=== PATIENT | female | born 1940 | race Caucasian/White ===

== ENCOUNTER 2020-07-15 10:18 | Day surgery (SDC) | payer MEDICARE, OTHER ==
[2020-07-15] MEDS: Lactated Ringers 1,000 ML IV SCH (10:39)
[2020-07-15] MEDS ORDERED: fentaNYL 100 MCG/2 ML SDV ONE (11:30)
[2020-07-15] MEDS ORDERED: Propofol 200 MG/20 ML SDV ONE (11:30)
[2020-07-15 12:57] VITALS: BP 106/43; PULSE 72
--- NOTE | 2020-07-15 14:13 | OR ---
SURGERY DATE: 07/15/2020. REFERRING PROVIDER: Xuan Rendon DO PRE-OPERATIVE DIAGNOSES: 1. Iron deficiency anemia. 2. The patient does report episode of dysphagia with bigger pills. This is in the throat area. 3. History of mechanical heart valve. On chronic Coumadin, currently bridged with Lovenox. Last dose was yesterday morning. INR today 1.0. POST-OPERATIVE DIAGNOSES: 1. Mild chronic appearing duodenitis in the duodenal bulb. Cold biopsy x2 bites taken. 2. Some scattered erythematous polypoid tissue to the posterior tongue noticed on the way out. This had a red cobblestone-like appearance at the posterior tongue. Consider ENT referral for laryngoscopy to evaluate further. PROCEDURE: Esophagogastroduodenoscopy with cold biopsy x2 sites (duodenal bulb and gastric antrum). SURGEON: Jaun Cervantes M.D. ANESTHESIA: Monitored anesthesia care. Angelika is a 79-year-old female who was brought to the endoscope suite after discussion of risks and benefits (including but not limited to reaction to medication, bleeding, infection, aspiration, perforation). Informed consent was obtained for monitored anesthesia care and esophagogastroduodenoscopy along with possible biopsy and/or dilatation. Pre-procedure exam including oral cavity was unremarkable. IV, oxygen, and monitors were placed. Patient was placed in the left lateral position and sedation was administered. A bite block was placed gently and scope lightly lubricated and passed through the bite block and over the tongue. Hypopharynx and vocal cords were visualized and unremarkable. On the way out, it was noted that the patient had some scattered erythematous cobblestone-like polypoid tissue to the posterior tongue which looked somewhat atypical. ENT referral to check this out is recommended. Scope was passed through the cricopharynx and into the esophagus. The scope was then passed through the distal esophagus and the GE junction was visualized and photographed. The GE junction was unremarkable. Vocal cords were visualized and unremarkable. The scope was advanced into the stomach and gastric bradley was suctioned. Pylorus was identified and intubated and then the scope was advanced to the third portion of the duodenum. The second and third portions of the duodenum were unremarkable. The duodenal bulb was visualized and did reveal some mild chronic appearing duodenitis. Cold biopsy x2 bites taken. The scope was brought back into the stomach. The pylorus and the antrum were unremarkable. Biopsies for H pylori and path were obtained from the antrum. Cold biopsy x2 bites was taken from this area to check for H. pylori and sent for path. The scope was retroflexed to visualize the angularis, fundus, body, and cardia were unremarkable. Esophagus closely visualized during withdrawal all the way to the posterior pharynx and was unremarkable. The stomach was desufflated of air and then the scope was slowly withdrawn, and the esophagus was closely visualized during withdrawal all the way into the posterior pharynx. The patient tolerated the procedure well and went to recovery in stable condition. The patient was monitored until at baseline status. Findings and discharge instructions were reviewed and the patient was discharged in good condition. COMPLICATIONS: None. TOTAL TIME: 8 minutes. ESTIMATED BLOOD LOSS: About 1 mL. RECOMMENDATIONS/FOLLOW-UP: We will await results of path report and send letter with results. The patient denies any current upper GI symptoms. If she does have some mild duodenitis on pathology, may consider addition of H2 valentino for GI prophylaxis given her chronic anticoagulation. Also recommend ENT consultation for the scattered erythematous cobblestone-like polypoid tissue to the posterior tongue which appears somewhat atypical. The patient will resume her Coumadin tonight and Lovenox bridge starting tomorrow morning. I would like to kindly thank Xuan Rendon for this referral. DMB: 07/15/2020 13:04:13 MODL: 07/15/2020 13:41:47 /[id number]
--- NOTE | 2020-07-15 14:35 | OR ---
DATE OF SURGERY: 07/15/2020. REFERRING PROVIDER: Xuan Rendon DO PRE-OPERATIVE DIAGNOSES: 1. Rectal bleeding. The patient does have history of hemorrhoids. 2. Iron deficiency anemia. The patient is on chronic Coumadin for mechanical heart valve. She was bridged with Lovenox and last dose was yesterday morning. INR today was 1.0. POST-OPERATIVE DIAGNOSES: 1. Incomplete colonoscopy. I was only able to advance to the distal transverse colon due to redundant loop to left colon. 2. Two polyps removed. a. 3 mm polyp in the transverse colon, removed using cold forceps. b. 6 mm polyp at the anorectal junction, removed using hot snare. 3. Moderate hemorrhoids, mildly irritated and inflamed. The patient will use some [id number] Preparation-H following the procedure to facilitate healing. 4. Edae-aw-txrtgtai sigmoid diverticulosis. PROCEDURE: Incomplete colonoscopy to the transverse colon. Polypectomy x2 performed; 1 using cold forceps and 1 using hot snare. SURGEON: Jaun Cervantes M.D. ANESTHESIA: Monitored anesthesia care. BOWEL PREP: Good. Angelika is a 79-year-old female who was brought to the endoscopy suite after discussing risks and benefits of the procedure. Informed consent was obtained for conscious sedation and colonoscopy with or without biopsy and/or polypectomy. We also discussed possibility of missed lesions. Pre-procedure exam was unremarkable. IV, oxygen, and monitors were placed. The patient was placed in the left lateral decubitus position. Sedation was administered and a digital rectal exam performed and was remarkable for irritated external hemorrhoids as well as palpable internal hemorrhoids. Colonoscope was passed into the rectum and slowly advanced. The patient had a tortuous, redundant, looped left colon. We did try abdominal pressure as well as scope stiffening and moving her onto her back as well as on her right side and then back again. These were unsuccessful. The colonoscope was slowly withdrawn and the mucosa was closely observed in a direct circumferential manner. The visualized portion of the transverse colon was remarkable for 3 mm polyp to the mid/distal portion of the transverse colon. This was removed using several bites of cold forceps. The descending colon was unremarkable. The sigmoid colon revealed mild-to- moderate diverticulosis. Retroflexion was performed and rectal mucosa revealed moderate hemorrhoids, which are somewhat irritated. There was also a 6 mm polyp at the anorectal junction. This was removed using hot snare. Some mild oozing of blood noted. Did recommend gxss-oih-[id number] Preparation-H to facilitate healing of this area. This should also calm down her hemorrhoids. Scope was removed. The patient tolerated the procedure well. The patient was monitored until that baseline status. Discharge instructions were reviewed and the patient was discharged in good condition. COMPLICATIONS: None. TOTAL TIME: 39 minutes. ESTIMATED BLOOD LOSS: 1 to 2 mL. RECOMMENDATIONS/FOLLOW-UP: I was unable to complete the colonoscopy given her tortuous, redundant, and looped left colon despite multiple maneuvers. We will send letter with results from the 2 polyps that were removed. I did recommend [id number]-[id number] Preparation-H to facilitate healing of the hemorrhoids as well as the polyp taken from the anorectal junction area. If primary sees fit, can consider either barium enema to visualize remainder of transverse colon as well as right colon, or the patient can consider a trial of colonoscopy again in [place] with Gastroenterology. The patient will resume her warfarin tonight and Lovenox tomorrow morning. I would like to kindly thank Xuan Rendon for this referral. DMB: 07/15/2020 13:11:28 MODL: 07/15/2020 14:09:20 /[id number]
== END 2020-07-15 14:05 | disposition home or self-care (01) ==
LOC: VM.SDS 10:18
PROVIDERS: ATTEND Family Medicine
DX: Z79.01 Long term (current) use of anticoagulants (principal)
CPT/HCPCS: 00811; 36415; 85610; 88305; J2704; J3010; J7120; U0002

== ENCOUNTER 2020-07-22 15:24 | Emergency (ER) | payer MEDICARE, OTHER ==
[2020-07-22] MEDS ORDERED: Sodium Chloride 0.9% 10 ML Syringe FLUSH PRN (15:34)
--- NOTE | 2020-07-22 15:57 | EDM.PDOC ---
ED HPI GENERAL MEDICAL PROBLEM - General Time Seen by Provider: 07/22/20 15:30 Source of Information: Reports: Patient History Limitations: Reports: No Limitations - History of Present Illness INITIAL COMMENTS - FREE TEXT/NARRATIVE: Pt. presents to ER with complaints of intermittent chest discomfort. She states that she has been fatigued for the past several days, and states that she has been experiencing intermittent, respirophasic chest discomfort since today or yesterday. She was in the clinic to be evaluated for rectal bleeding this afternoon and states that the discomfort was quite severe so she was brought to ER. Pt. had an incomplete (due to tortuosity and redundancy of bowel) on 07/15. She had 2 polyps removed at that time. She was noted to have moderate, inflammed hemorrhoids at that time. She also had EGD that day as well, with cold biopsy x 2 of duodenum. Pt. states that she has bright red rectal bleeding, and has been experiencing significant discomfort of the rectum as well. She is anticoagulated with warfarin, but the warfarin was stopped prior to her procedures preoperatively (she was bridged with lovenox). Denies any dark or tarry stools. She states that she is quite short of breath, particularly with activity. She has been extremely fatigued. HGB on 07/02 was 8.6. Pt. denies any arm pain. No jaw, arm, neck or back pain. +LYONS, mild orthopnea. No palpitations. She denies any nausea, vomiting, or abdominal discomfort. She has not been diaphoretic. History of cardiac arrest in the distant past. Pt. had negative heart cath for NSTEMI in 12/2019. She states that she has not stents. History mitral valve replacement. 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 EF in the 45-52% range on recent heart cath/nuclear stress tests. Onset Date: 07/21/20 Location: Reports: Chest, Generalized Quality: Reports: Sharp Worsens with: Reports: Other (activity), Movement Associated Symptoms: Reports: Chest Pain, Shortness of Breath. Denies: Fever/Chills Mid-Sternal Chest Pain Score (Numeric/FACES): 6 - Related Data Allergies Allergy/AdvReac Type Severity Reaction Status Date / Time cat dander Allergy Shortness Verified 07/22/20 15:51 of Breath pollen extracts AdvReac Cough Verified 07/22/20 15:51 Home Meds: Home Meds Cholecalciferol (Vitamin D3) [Vitamin D3] 4,000 unit PO DAILY 04/30/14 [History] Rosuvastatin [Crestor] 10 mg PO QPM 04/30/14 [History] Furosemide [Lasix] 20 mg PO DAILY 05/10/14 [History] Magnesium Chloride [Mag-64] 64 mg PO DAILY #30 tab.er 05/10/14 [Rx] Acetaminophen 650 mg PO Q4H PRN 11/03/15 [History] Metoprolol Tartrate 100 mg PO BID 11/03/15 [History] Digoxin [Lanoxin] 125 mcg PO DAILY #30 tablet 11/08/15 [Rx] Biotin 5 mg PO DAILY 10/30/18 [History] Calcium Carbonate/Vitamin D3 [Calcium 500 mg Chewable Tablet] 1 each PO TID 10/30/18 [History] Cetirizine [ZyrTEC] 10 mg PO DAILY 10/30/18 [History] Cyanocobalamin (Vitamin B-12) [B-12] 1,000 mcg PO DAILY 10/30/18 [History] Denosumab [Prolia] 60 mg SQ Q180D 10/30/18 [History] Gabapentin [Neurontin] 100 mg PO DAILY 10/30/18 [History] Melatonin 5 mg PO BEDTIME PRN 10/30/18 [History] Primidone [Mysoline] 50 mg PO ASDIRECTED 10/30/18 [History] Sennosides/Docusate Sodium [Senna Plus Tablet] 1 tab PO DAILY 10/30/18 [History] Warfarin [Coumadin] 2.5 mg PO ASDIRECTED 10/30/18 [History] Gabapentin [Neurontin] 200 mg PO BEDTIME 10/15/19 [History] Multivitamin [Daily Multiple Vitamin] 1 each PO DAILY 10/15/19 [History] Ascorbic Acid [Vitamin C] 250 mg PO Q48H 03/23/20 [History] ClonazePAM [KlonoPIN] 0.5 mg PO BEDTIME PRN 03/23/20 [History] Potassium Chloride 10 meq PO DAILY 03/23/20 [History] Past Medical History HEENT History: Reports: None Cardiovascular History: Reports: Arrhythmia, Bacterial Endocarditis, CAD, Heart Failure, Heart Valve Replacement, High Cholesterol Genitourinary History: Reports: Acute Renal Failure Musculoskeletal History: Reports: Osteoporosis Psychiatric History: Reports: Anxiety Endocrine/Metabolic History: Reports: Osteoporosis, Vitamin D Deficiency, Other (See Below) Other Endocrine/Metabolic History: hyperglycemia Hematologic History: Reports: Other (See Below) Other Hematologic History: thrombocytopenia - Past Surgical History HEENT Surgical History: Reports: None, Cataract Surgery Cardiovascular Surgical History: Reports: AICD, Valve Replacement Female Surgical History: Reports: Other (See Below) Other Female Surgeries/Procedures: COLPOSCOPY W/ ENDO CURETTE - MISCARRIAGE Social & Family History - Family History Other Cardiac Family History: sn-stents Oncologic: Reports: Breast - Caffeine Use Caffeine Use: Reports: None ED ROS GENERAL - Review of Systems Review Of Systems: See Below Constitutional: Reports: Malaise, Fatigue HEENT: Reports: No Symptoms Respiratory: Reports: Shortness of Breath Cardiovascular: Reports: Chest Pain, Dyspnea on Exertion, Lightheadedness. Denies: Orthopnea, Palpitations, PND, Syncope Endocrine: Reports: Fatigue GI/Abdominal: Reports: Hematochezia, Other (See HPI) : Reports: No Symptoms Musculoskeletal: Reports: No Symptoms Skin: Reports: Pallor Neurological: Reports: No Symptoms ED EXAM, GENERAL - Physical Exam Exam: See Below Exam Limited By: No Limitations General Appearance: Alert, WD/WN, No Apparent Distress Head: Atraumatic, Normocephalic Neck: Normal Inspection, Supple, Full Range of Motion Respiratory/Chest: No Respiratory Distress, Decreased Breath Sounds Cardiovascular: Normal Peripheral Pulses, No Edema, Irregularly Irregular, Other (pain down to "1" on arrival to ER.) Peripheral Pulses: 4+: Radial (R) GI/Abdominal: Soft, Non-Tender, No Distention, No Mass (Female) Exam: Deferred Rectal (Female) Exam: Deferred Extremities: Normal Inspection, Normal Range of Motion, No Pedal Edema, Normal Capillary Refill Neurological: Alert, Oriented, CN II-XII Intact, Normal Cognition, No Motor/Sensory Deficits Psychiatric: Normal Affect, Normal Mood Skin Exam: Warm, Dry, Intact, Pallor EKG INTERPRETATION Rhythm: A-Fib Course - Vital Signs Last Recorded V/S: Last Vital Signs Temp 36.8 C 07/22/20 15:25 Pulse 87 07/22/20 17:09 Resp 25 H 07/22/20 17:09 BP 141/50 H 07/22/20 17:09 Pulse Ox 100 07/22/20 17:09 - Orders/Labs/Meds Orders: Active Orders 24 hr Category Date Time Status EKG Documentation Completion [RC] STAT Care 07/22/20 15:34 Active Sodium Chloride 0.9% [Saline Flush] Med 07/22/20 15:34 Active 10 ml FLUSH ASDIRECTED PRN Peripheral IV Insertion Adult [OM.PC] Routine Oth 07/22/20 15:35 Ordered Medication Orders Sodium Chloride (Saline Flush) 10 ml FLUSH ASDIRECTED PRN PRN Reason: Keep Vein Open Labs: Laboratory Tests 07/22/20 07/22/20 07/22/20 Range/Units 15:46 15:46 15:46 WBC 2.6 L (4.0-10.0) x10^3/uL RBC 3.14 L (4.00-5.50) x10^6/uL Hgb 7.6 L D (12.0-16.0) g/dL Hct 25.8 L (33.0-47.0) % MCV 82.2 D (78.0-93.0) fL MCH 24.2 L (26.0-32.0) pg MCHC 29.5 L (32.0-36.0) g/dL RDW Coeff of Lashay 16.2 H (10.0-15.0) % Plt Count 147 (130-400) x10^3/uL Neut % (Auto) 63.9 (50.0-80.0) % Lymph % (Auto) 24.7 L (25.0-50.0) % Posey % (Auto) 8.6 (2.0-11.0) % Eos % (Auto) 2.4 (0.0-4.0) % Baso % (Auto) 0.4 (0.2-1.2) % PT 21.0 H D (9.5-12.3) SEC INR 2.0 (2.0-3.5) D-Dimer, Quantitative (<=0.58) mg/LFEU Sodium 140 (136-145) mmol/L Potassium 4.1 (3.5-5.1) mmol/L Chloride 105 (98-107) mmol/L Carbon Dioxide 27 (21-32) mmol/L Anion Gap 12.1 (10-20) mmol/L BUN 15 (7-18) mg/dL Creatinine 1.0 (0.55-1.02) mg/dL Est Cr Clr Drug Dosing 38.18 mL/min Estimated GFR (MDRD) 54 Glucose 121 H (74-106) mg/dL Calcium 8.5 (8.5-10.1) mg/dL Corrected Calcium 8.98 (8.5-10.1) mg/dL Magnesium 2.0 (1.8-2.4) mg/dL Total Bilirubin 0.4 (0.2-1.0) mg/dL AST 32 (15-37) U/L ALT 38 (14-59) U/L Alkaline Phosphatase 44 L (46-116) U/L Troponin I 0.104 H* (<=0.056) ng/mL C-Reactive Protein < 0.2 (<=0.9) mg/dL NT-Pro-B Natriuret Pep (<=450) pg/mL Total Protein 6.3 L (6.4-8.2) g/dL Albumin 3.4 (3.4-5.0) g/dL Globulin 2.9 Albumin/Globulin Ratio 1.17 Digoxin (0.90-2.00) ng/mL SARS CoV-2 RNA Rapid CLARK (NEGATIVE) 07/22/20 07/22/20 07/22/20 Range/Units 15:46 15:46 15:46 WBC (4.0-10.0) x10^3/uL RBC (4.00-5.50) x10^6/uL Hgb (12.0-16.0) g/dL Hct (33.0-47.0) % MCV (78.0-93.0) fL MCH (26.0-32.0) pg MCHC (32.0-36.0) g/dL RDW Coeff of Lashay (10.0-15.0) % Plt Count (130-400) x10^3/uL Neut % (Auto) (50.0-80.0) % Lymph % (Auto) (25.0-50.0) % Posey % (Auto) (2.0-11.0) % Eos % (Auto) (0.0-4.0) % Baso % (Auto) (0.2-1.2) % PT (9.5-12.3) SEC INR (2.0-3.5) D-Dimer, Quantitative 3.28 H (<=0.58) mg/LFEU Sodium (136-145) mmol/L Potassium (3.5-5.1) mmol/L Chloride (98-107) mmol/L Carbon Dioxide (21-32) mmol/L Anion Gap (10-20) mmol/L BUN (7-18) mg/dL Creatinine (0.55-1.02) mg/dL Est Cr Clr Drug Dosing mL/min Estimated GFR (MDRD) Glucose (74-106) mg/dL Calcium (8.5-10.1) mg/dL Corrected Calcium (8.5-10.1) mg/dL Magnesium (1.8-2.4) mg/dL Total Bilirubin (0.2-1.0) mg/dL AST (15-37) U/L ALT (14-59) U/L Alkaline Phosphatase (46-116) U/L Troponin I (<=0.056) ng/mL C-Reactive Protein (<=0.9) mg/dL NT-Pro-B Natriuret Pep 1599 H (<=450) pg/mL Total Protein (6.4-8.2) g/dL Albumin (3.4-5.0) g/dL Globulin Albumin/Globulin Ratio Digoxin 1.09 (0.90-2.00) ng/mL SARS CoV-2 RNA Rapid CLARK (NEGATIVE) 07/22/20 Range/Units 15:55 WBC (4.0-10.0) x10^3/uL RBC (4.00-5.50) x10^6/uL Hgb (12.0-16.0) g/dL Hct (33.0-47.0) % MCV (78.0-93.0) fL MCH (26.0-32.0) pg MCHC (32.0-36.0) g/dL RDW Coeff of Lashay (10.0-15.0) % Plt Count (130-400) x10^3/uL Neut % (Auto) (50.0-80.0) % Lymph % (Auto) (25.0-50.0) % Posey % (Auto) (2.0-11.0) % Eos % (Auto) (0.0-4.0) % Baso % (Auto) (0.2-1.2) % PT (9.5-12.3) SEC INR (2.0-3.5) D-Dimer, Quantitative (<=0.58) mg/LFEU Sodium (136-145) mmol/L Potassium (3.5-5.1) mmol/L Chloride (98-107) mmol/L Carbon Dioxide (21-32) mmol/L Anion Gap (10-20) mmol/L BUN (7-18) mg/dL Creatinine (0.55-1.02) mg/dL Est Cr Clr Drug Dosing mL/min Estimated GFR (MDRD) Glucose (74-106) mg/dL Calcium (8.5-10.1) mg/dL Corrected Calcium (8.5-10.1) mg/dL Magnesium (1.8-2.4) mg/dL Total Bilirubin (0.2-1.0) mg/dL AST (15-37) U/L ALT (14-59) U/L Alkaline Phosphatase (46-116) U/L Troponin I (<=0.056) ng/mL C-Reactive Protein (<=0.9) mg/dL NT-Pro-B Natriuret Pep (<=450) pg/mL Total Protein (6.4-8.2) g/dL Albumin (3.4-5.0) g/dL Globulin Albumin/Globulin Ratio Digoxin (0.90-2.00) ng/mL SARS CoV-2 RNA Rapid CLARK Negative (NEGATIVE) Meds: Medications Generic Name Dose Route Start Last Admin Trade Name Freq PRN Reason Stop Dose Admin Sodium Chloride 10 ml 07/22/20 15:34 Saline Flush FLUSH ASDIRECTED PRN Keep Vein Open Discontinued Medications Generic Name Dose Route Start Last Admin Trade Name Freq PRN Reason Stop Dose Admin Aspirin 324 mg 07/22/20 18:25 07/22/20 18:32 Aspirin PO 07/22/20 18:26 324 mg ONETIME ONE Administration Iopamidol 100 ml 07/22/20 17:07 Isovue-300 (61%) IVPUSH 07/22/20 17:08 ONETIME ONE - Radiology Interpretation Free Text/Narrative:: Chest x-ray negative for acute pathology. No PE on CTA of chest. Massive cardiomegaly with central vascular congestion, consistent with acute CHF. Departure - Departure Time of Disposition: 18:51 Disposition: DC/Tfer to Acute Hospital 02 Clinical Impression: NSTEMI (non-ST elevated myocardial infarction), CHF (congestive heart failure) - Discharge Information Referrals: Xuan Rendon DO [Primary Care Provider] - Sepsis Event Note (ED) - Focused Exam Vital Signs: Vital Signs Temp Pulse Resp BP Pulse Ox 07/22/20 17:09 87 25 H 141/50 H 100 07/22/20 16:54 89 16 131/56 L 98 07/22/20 16:38 88 20 134/46 L 97 07/22/20 16:05 84 32 H 127/72 100 07/22/20 15:40 86 32 H 124/54 L 100 07/22/20 15:25 36.8 C 100 16 141/52 H 100 - Problem List Review Problem List Initiated/Reviewed/Updated: Yes - My Orders Last 24 Hours: My Active Orders 07/22/20 15:34 EKG Documentation Completion [RC] STAT Sodium Chloride 0.9% [Saline Flush] 10 ml FLUSH ASDIRECTED PRN 07/22/20 15:35 Peripheral IV Insertion Adult [OM.PC] Routine - Assessment/Plan Last 24 Hours: My Active Orders 07/22/20 15:34 EKG Documentation Completion [RC] STAT Sodium Chloride 0.9% [Saline Flush] 10 ml FLUSH ASDIRECTED PRN 07/22/20 15:35 Peripheral IV Insertion Adult [OM.PC] Routine Plan: Pt. will be transferred to [facility] CDU Rm. 11. Dr. Wynne is accepting. Pt. will be transported via [facility] ground ambulance. Pt. INR is theraputic so she was not anticoagulated. She was pain free during her stay in ER. Pt. indicates that she is a code 1.
--- NOTE | 2020-07-22 16:13 | CR ---
[id number] RAD/RAD Chest PA or AP 1V EXAM: RAD Chest PA or AP 1V INDICATION: CHEST PAIN. COMPARISON: October 2015. DISCUSSION: Cardiomegaly and central vascular congestion, similar to the prior examination. COPD with bibasal scarring. No evidence of pneumonia. No effusion or edema. IMPRESSION: As above. Fausto Waters MD 07/22/20 [id number] Thank you for allowing us to participate in the care of your patient.
[2020-07-22 16:37] LABS: CHLORIDE,CL 105 mmol/L (98-107); SODIUM,NA 140 mmol/L (136-145)
[2020-07-22 16:38] LABS: ANION GAP 12.1 mmol/L (10-20)
[2020-07-22] MEDS ORDERED: Iopamidol 612 MG/ML 100 ML Bottle IVPUSH ONE (17:07)
--- NOTE | 2020-07-22 18:01 | CT ---
[id number] CT/CTA Chest EXAM: CTA Chest CLINICAL DATA: CHEST PAIN, SHORTNESS OF BREATH, ELEVATED D-DIMER. COMPARISON: Radiograph from today. FINDINGS: LUNGS: Small bilateral pleural effusions. Bilateral symmetric basal predominant interlobular septal thickening and groundglass parenchymal opacification. With other changes of fluid retention, findings are most consistent with interstitial and parenchymal pulmonary edema. Findings are superimposed on bibasal scarring demonstrating appearance suggesting early/mild changes of chronic interstitial lung disease. There is also mild bronchiectasis Biapical scarring. HEART AND GREAT VESSELS: Massive cardiomegaly. No pericardial effusion. Thoracic atherosclerosis. No aneurysm. Central vascular congestion. Negative for pulmonary embolus. MEDIASTINUM AND LYMPHATICS: No mediastinal or hilar lymphadenopathy. UPPER ABDOMINAL ORGANS: Unremarkable. BONES: Spondylosis. No fracture or osseous lesion. IMPRESSION: Negative for pulmonary embolus. Massive cardiomegaly with central vascular congestion and changes in lungs suggesting congestive heart failure exacerbation. Multiple additional chronic findings are described above. Fausto Waters MD 07/22/20 [phone] Thank you for allowing us to participate in the care of your patient.
[2020-07-22] MEDS ORDERED: Aspirin 81 MG Tab.Chew PO ONE (18:25)
[2020-07-22 18:39] VITALS: BP 141/50; PULSE 87
== END 2020-07-22 19:21 | disposition short-term general hospital (02) ==
LOC: VM.ED 15:24
DX: I21.4 Non-ST elevation (NSTEMI) myocardial infarction (principal); I50.9 Heart failure, unspecified; I25.10 Atherosclerotic heart disease of native coronary artery without angina pectoris; E78.00 Pure hypercholesterolemia, unspecified; F41.9 Anxiety disorder, unspecified; Z79.899 Other long term (current) drug therapy; Z20.828 Contact with and (suspected) exposure to other viral communicable diseases; Z79.01 Long term (current) use of anticoagulants; Z91.048 Other nonmedicinal substance allergy status
CPT/HCPCS: 71045; 71275; 80053; 80162; 83735; 83880; 84484; 85025; 85379; 85610; 86140; 93005; 99285; A9270; Q9967; U0002; 93010; 99284

== ENCOUNTER 2020-08-17 08:26 | Inpatient (IN) | payer MEDICARE, OTHER ==
[2020-08-17] MEDS ORDERED: Ondansetron 4 MG Tab.DIS PO PRN (11:13)
--- NOTE | 2020-08-17 12:31 | CR ---
[id number] RAD/RAD Chest PA or AP 1V EXAM: FRONTAL CHEST INDICATION: SHORT OF BREATH. COMPARISON: July 22, 2020. DISCUSSION: Hyperinflation suggests underlying COPD. Chronic bibasilar scarring or fibrosis is unchanged. No acute infiltrates are identified. Stable cardiomegaly without evidence of edema. Prior sternotomy. IMPRESSION: 1. No acute findings. Remy Daily MD 08/17/20 [id number] Thank you for allowing us to participate in the care of your patient.
[2020-08-17] MEDS ORDERED: ClonazePAM 0.5 MG Tab PO PRN (15:01)
[2020-08-17] MEDS ORDERED: Melatonin 3 MG Tab PO PRN (15:09)
[2020-08-17] MEDS: Polyethylene Glycol 3350 Powder 17 GM Packet PO SCH (15:43)
[2020-08-17] MEDS: Primidone 50 MG Tab PO SCH ×2 (15:43→19:23)
[2020-08-17] MEDS: Lidocaine 2% Jelly 5 ML Tube TOP PRN ×2 (16:11→19:56)
[2020-08-17] MEDS: Acetaminophen 325 MG Tab PO PRN ×2 (16:12→19:20)
[2020-08-17] MEDS ORDERED: Sodium Chloride 0.9% 1,000 ML IV SCH (16:45)
[2020-08-17] MEDS ORDERED: Metoprolol Tartrate 50 MG Tab PO ONE (17:00)
[2020-08-17] MEDS: atorvaSTATin 40 MG Tab PO SCH (19:23)
[2020-08-17] MEDS ORDERED: Warfarin 2.5 MG Tab PO SCH (20:00)
[2020-08-17] MEDS ORDERED: Gabapentin 100 MG Cap PO SCH (20:00)
[2020-08-17] MEDS: Sodium Chloride 0.9% 10 ML Syringe FLUSH PRN (20:05)
--- NOTE | 2020-08-17 21:28 | HP ---
CHIEF COMPLAINT: Shortness of breath and weakness. HISTORY OF PRESENT ILLNESS: This is a 79-year-old female who came into the clinic today for her INR. She was noted to be quite weak and pale, so was taken over to the hospital for her outpatient iron infusion. The patient had just been discharged from the hospital on 08/11 after an admit on 08/07 for a non-ST- elevation UT when she presented with chest pain and elevated troponin. Troponin did normalize before discharge. She denies that she has had any chest pain since discharge, but admits she just has not felt well. Her EF at that time was 55% on echo. She has had previous angiogram back in December and has nonobstructive coronary disease, has a history of a mechanical mitral valve that was functioning well, and remotely has had a cardiac arrest, but her ICD was removed due to a pacemaker infection. The patient's arrest was VFib in 2007, and has ongoing history of heart failure, and has been on Lasix 20 mg daily. The patient has a history of iron deficiency anemia due to hemorrhoidal bleeding. She actually underwent an extensive hemorrhoid surgery back on the 25 of July and has had ongoing issues with 7/10 rectal pain since requiring the use of oxycodone. She is having bowel movements. States in the last couple of days, she has had a little bit of blood. Otherwise, she has had no fever or chills. She was given some Flagyl for anti-inflammatory effects. She has used some lidocaine jelly. The patient is not coughing. 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 Blood pressure, though diastolic was 47, O2 of 96% on room air. She was in no respiratory distress. Her troponin returned elevated at 0.138. Therefore, decision was made for admission. EKG was done, which did show AFib. Her heart rates had been in the 90s to 100s. Her hemoglobin though was 9.3. She appeared dehydrated. She did get her IV Venofer and 250 mL of fluid with improvement in her blood pressure. ALLERGIES: Do include pollens and cat dander. MEDICATION LIST: Reviewed. Includes Tylenol 1000 three times a day, Neurontin 200 twice daily, metronidazole cream 3 times a day for the hemorrhoids, lidocaine gel p.r.n. for hemorrhoids, lactulose 30 mL 3 times a day as needed for constipation, MiraLAX 17 g daily, Crestor 10 mg daily, Lasix 20 mg daily, Coumadin 2.5 mg 4 days a week and 5 mg Sunday, Sunday, Sunday, Lopressor 100 twice daily, Klonopin 0.5 at bedtime as needed for sleep, primidone 1 in the morning, 1/2 in the afternoon and evening, potassium 10 mEq daily, digoxin 125 mcg daily, Prolia 60 every 6 months, multivitamin with iron, melatonin, B12 vitamin, vitamin C 250 every other day, Colace, Senokot, calcium 3 times a day, biotin, Zyrtec 10 mg daily, mag chloride 64 daily, and vitamin D 2 tablets daily. PAST MEDICAL HISTORY: Again is complex including a VFib arrest back in 2007 due to mitral valve and diastolic heart failure. She has had previous Staphylococcus aureus bacteremia back in 2013 when her ICD was removed. She has had chronic AFib with RVR and cardioversion in the past. She has chronic kidney disease stage 2. She has iron deficiency anemia due to hemorrhoidal bleeding. She has a history of congestive heart failure with EF now at 55%, so diastolic heart failure. She also has coronary disease, nonobstructive. Last angiogram in 12/2019. She has had essential tremor. She has had history of mitral valve replacement in 1989 with a mechanical mitral valve. She has had hyperglycemia, hyperlipidemia, hypertriglyceridemia, osteoporosis, pulmonary hypertension, thrombocytopenia, and vitamin D deficiency. SURGICAL HISTORY: Outlined above and also includes a colposcopy remotely for a miscarriage. FAMILY HISTORY: Both parents are . Her father had emphysema. SOCIAL HISTORY: The patient is . She is retired. She has 4 children. Her is present in the hospital before her admission. She is a nonsmoker, nondrinker. REVIEW OF SYSTEMS: General: The patient is not aware of any weight changes. She has not had any fever or chills. HEENT: No sore throat. No trouble swallowing. Cardiac: No chest pain. No palpitations, but has been short of breath. Respiratory: Again, short of breath. No increased edema. Abdomen: She has had no abdominal pain, but she does have rectal pain. Since her hemorrhoid surgery, it has not gotten worse, but has failed to improve. Extremities and Musculoskeletal: She has not had any edema or joint pains. Otherwise, all systems reviewed and found to be negative unless otherwise stated. PHYSICAL EXAMINATION: Vital Signs: On her admission up to the hospital, her temperature was 98.5, her pulse 86, her max rate was up to 120, weight 49.8 kg, blood pressure 130/49, respiratory rate is 18, O2 of 100% on room air. General: She is in no acute distress. Heart: Irregularly irregular. Lungs: Sounds are clear to auscultation bilaterally without crackles or wheezes. Abdomen: Nondistended, nontender. Extremities: Warm and dry. No edema. Skin: Does appear pale. Mental Status: She is alert and oriented x3. LABORATORY WORK: Does show white count low at 3, hemoglobin 9.3, platelets 177. ESR is 10. INR 2.5. Sodium 136, potassium 4.3, chloride 103, bicarb 27, BUN 13, creatinine 1, glucose 89, calcium 9. Again, troponin 0.138. ProBNP 2074 and CRP is 0.5. Her chest x-ray shows no infiltrates, just scarring. No edema. Her EKG shows AFib. ASSESSMENT: 1. Non-ST elevation myocardial infarction, possibly from the dehydration with some tachycardia. The patient already got 250 mL of saline. Given her history of heart failure and that she is eating and drinking okay, we will continue to monitor her, but give her more fluids if needed. I suspect that is why her hemoglobin came up due to some dehydration. We will repeat a hemoglobin later today along with a troponin. 2. Chronic iron deficiency anemia due to rectal bleeding from hemorrhoids. Still with some blood, but minimal per the patient. We will do a rectal exam. 3. Rectal pain due to recent hemorrhoidectomy. This has been discussed with her surgeon. Everything has looked good. She does have appointment with them planned for tomorrow, but likely will need to be rescheduled due to inpatient. 4. Atrial fibrillation with some rapid ventricular response. We will give her metoprolol early instead of waiting until bedtime and monitor her with telemetry. 5. Mechanical mitral valve. Her INR is therapeutic. I will continue with the same Coumadin unless her gastrointestinal bleeding was to get worse. 6. Nonobstructive coronary disease. 7. Chronic diastolic heart failure, stable without exacerbation. I think her elevated proBNP is due to her cro-GN-jjgtgpmiu myocardial infarction. 8. Chronic kidney disease stage 2. Her creatinine is at her baseline. We will repeat in the morning. 9. History of ventricular fibrillation arrest. The patient would want resuscitation efforts if it were needed, but she does not want prolonged resuscitation. Her was present for this discussion. She would not want to be on life support. 10.Hyperglycemia. Blood sugar acceptable at 89. 11.Osteoporosis. Continue outpatient followup. 12.Mild leukopenia. Platelets are normal currently, but the patient will get a B12 level on her next blood draw. PLAN: The patient will be admitted for observation with telemetry and serial troponins and also serial hemoglobins. Currently, she is having no chest pain and no urgent indications for transfer. We will continue most of her home medications, but hold many of her supplements. She will have a diet as tolerated and I will repeat her lab work tomorrow. If her troponin trends down and she is feeling better and less weak, we will let her go home. We will have her work with PT. For DVT prophylaxis, she is therapeutic on Coumadin and she is a code level 1. MKA: 08/17/2020 19:21:11 MODL: 08/17/2020 21:20:53 /[id number]
[2020-08-17] MEDS ORDERED: oxyCODONE 5 MG Tab PO PRN (21:31)
[2020-08-18] MEDS: oxyCODONE 5 MG Tab PO PRN (05:21)
[2020-08-18] MEDS: Lidocaine 2% Jelly 5 ML Tube TOP PRN (05:45)
[2020-08-18 07:11] LABS: ANION GAP 13.9 mmol/L (10-20)
[2020-08-18] MEDS ORDERED: Gabapentin 100 MG Cap PO SCH (08:00)
[2020-08-18] MEDS ORDERED: Cyanocobalamin (Vitamin B12) 1,000 MCG/ML SDV IM ONE (08:25)
[2020-08-18] MEDS ORDERED: Amiodarone 200 MG Tab PO SCH (08:30)
[2020-08-18] MEDS ORDERED: Diltiazem 120 MG Cap.CD PO ONE (08:49)
[2020-08-18] MEDS: HYDROmorphone 0.5 MG/0.5 ML Syringe IVPUSH PRN ×4 (08:58→19:06)
[2020-08-18] MEDS: Acetaminophen 325 MG Tab PO PRN (08:59)
[2020-08-18] MEDS: Metoprolol Tartrate 50 MG Tab PO SCH ×2 (09:02→19:36)
[2020-08-18] MEDS: Digoxin 125 MCG Tab PO SCH (09:03)
[2020-08-18] MEDS: Potassium Chloride 10 MEQ Tab.ER PO SCH (09:03)
[2020-08-18] MEDS: Primidone 50 MG Tab PO SCH ×3 (09:03→19:46)
[2020-08-18] MEDS: Polyethylene Glycol 3350 Powder 17 GM Packet PO SCH (09:04)
[2020-08-18] MEDS: Lactulose Soln 10 GM/15 ML 30 ML UD Cup PO SCH (09:10)
--- NOTE | 2020-08-18 10:54 | PN ---
Progress Note for BLAKE CONTEH Date: 08/18/2020 Room #: VM.204 SUBJECTIVE: This is hospital day #2 on a 79-year-old admitted for a non-ST- elevation [place] with shortness of breath and weakness with presenting for her outpatient iron infusion yesterday. The patient's heart rates were in the 90s to 100s. She has known atrial fibrillation. She did not have any chest pain. Her repeat troponin had actually trended down to 0.11. This morning, she woke up around 4 a.m. and her heart rates went up into the 140s consistently and even into the 160s. She is having 7/10 rectal pain from her hemorrhoidectomy, knee surgery back in July and did get a dose of oral oxycodone. She feels that her breathing is sort of poor and she is breathing more quickly. She does not have any leg swelling. In fact, when she was admitted, she was felt to be dehydrated and when her diastolic blood pressure dropped to 40 last evening, we started her on IV fluids. She admits she is straining for her bowel movement, she had a couple, no blood. Her hemoglobin remained stable. She did eat 100% of dinner last evening. OBJECTIVE: Vital Signs: Her temperature is 97.4, pulse 160, blood pressure 125/60, respiratory rate 16, O2 of 98% on room air. General: She is in no acute distress. She is resting in bed. She appears pale. Heart: Irregularly irregular with tachycardia. Lungs: Sounds are clear to auscultation bilaterally without crackles or wheezes. Abdomen: Positive bowel sounds. Soft, nontender. Extremities: Warm and dry. No edema. Mental Status: Alert and orientated x3. Rectal: The external skin tags material and no thrombosed hemorrhoids noted. She does have some tenderness over the 1 skin tag. Anoscopy was not performed. I did not perform a rectal exam. There was no jonathan blood. LABORATORY DATA: Lab work does show white count down to 1.8, it was 3 yesterday with 59% neutrophils, hemoglobin 9.2, up from 8.8 yesterday afternoon, and platelets 167. ESR was 10 on admission. Sodium 140, potassium 3.9, chloride 105, bicarb 25, BUN 10, creatinine 1, magnesium 2. Her COVID testing is negative. Glucose 87. ASSESSMENT: 1. Aeb-EU-ndcogoipe myocardial infarction. Troponin trending down, but now patient having more shortness of breath and tachycardia. We will upgrade her to acute care. She will continue her statin and beta valentino. We will repeat a troponin later today. 2. Atrial fibrillation with rapid ventricular response. Discussed with Cardiology. We will try a dose of oral Cardizem. Considerations are being made for amiodarone if the heart rates continue. I do feel that the pain and dehydration are contributing to this. If she becomes hypotensive, I will bolus her fluids. Cardioversion is not a good idea right now given that she had surgery and was off Coumadin for that within the last month. 3. Rectal pain due to hemorrhoidectomy back in July. We will continue with supportive cares. We will order some IV Dilaudid. We will schedule her lidocaine jelly. We will try sitz bath at the bedside. 4. Mechanical mitral valve. INR therapeutic at 2.5 yesterday. We will recheck later today. 5. No obstructive coronary disease based on angiogram in 12/2019. 6. Chronic diastolic heart failure without exacerbation. Her EF is 55%. 7. Chronic kidney disease stage 2. Her kidney function is stable. 8. History of ventricular fibrillation arrest. 9. History of hyperglycemia. She has not had any while admitted. 10.Leukopenia. Her absolute neutrophil count is around a 1000. We will check a B12 level. 11.Osteoporosis. PLAN: The patient is to continue with hospital cares, but we will upgrade her to acute care. We will repeat another hemoglobin, troponin and INR this afternoon. We will give her some oral Cardizem and continue to monitor her with telemetry. We will restart her lactulose to avoid any straining for stools and will work on pain control. MKA: 08/18/2020 10:22:54 MODL: 08/18/2020 10:47:11 /[id number]
[2020-08-18] MEDS: Lidocaine 2% Jelly 5 ML Tube TOP SCH ×3 (12:35→19:40)
[2020-08-18] MEDS: Sodium Chloride 0.9% 10 ML Syringe FLUSH PRN ×2 (15:08→19:06)
[2020-08-18] MEDS: Melatonin 3 MG Tab PO SCH (19:39)
[2020-08-18] MEDS: atorvaSTATin 40 MG Tab PO SCH (19:39)
[2020-08-18] MEDS: Acetaminophen 500 MG Tab PO SCH (19:42)
[2020-08-18] MEDS: Gabapentin 100 MG Cap PO SCH (19:44)
[2020-08-18] MEDS ORDERED: Warfarin 5 MG Tab PO SCH (20:00)
[2020-08-19] MEDS: Sodium Chloride 0.9% 10 ML Syringe FLUSH PRN ×4 (04:42→14:35)
[2020-08-19] MEDS: HYDROmorphone 0.5 MG/0.5 ML Syringe IVPUSH PRN ×5 (04:42→18:23)
[2020-08-19 07:09] LABS: CHLORIDE,CL 108 mmol/L (98-107); SODIUM,NA 142 mmol/L (136-145)
[2020-08-19 07:18] LABS: ANION GAP 11.2 mmol/L (10-20)
[2020-08-19] MEDS: Primidone 50 MG Tab PO SCH ×3 (07:51→20:05)
[2020-08-19] MEDS: Metoprolol Tartrate 50 MG Tab PO SCH ×2 (07:52→20:06)
[2020-08-19] MEDS: Digoxin 125 MCG Tab PO SCH (07:52)
[2020-08-19] MEDS: Polyethylene Glycol 3350 Powder 17 GM Packet PO SCH (07:53)
[2020-08-19] MEDS: Acetaminophen 500 MG Tab PO SCH ×3 (07:53→20:11)
[2020-08-19] MEDS: Potassium Chloride 10 MEQ Tab.ER PO SCH (07:53)
[2020-08-19] MEDS: Gabapentin 100 MG Cap PO SCH ×2 (07:54→20:04)
[2020-08-19] MEDS: Lactulose Soln 10 GM/15 ML 30 ML UD Cup PO SCH (07:55)
[2020-08-19] MEDS: oxyCODONE 5 MG Tab PO PRN ×2 (08:17→13:30)
[2020-08-19] MEDS: Lidocaine 2% Jelly 5 ML Tube TOP SCH ×4 (08:18→20:09)
[2020-08-19] MEDS ORDERED: Cyanocobalamin (Vitamin B12) 1,000 MCG/ML SDV IM ONE (11:13)
[2020-08-19] MEDS: Folic Acid 1 MG Tab PO SCH (12:02)
--- NOTE | 2020-08-19 12:26 | PN ---
Progress Note for BLAKE CONTEH Date: 08/19/2020 Room #: VM.204 SUBJECTIVE: This is hospital day #2 for acute care day #3 overall for a 79-year- old admitted with AFib with RVR, shortness of breath, and weakness. She has chronic anemia and rectal bleeding due to recent hemorrhoid surgery. She has not had a bowel movement today. She has had no further blood in her stool. She did have bowel movements yesterday, at least 2, without difficulty. She is on a bowel regimen. She had gotten at least 5 doses of IV Dilaudid, last around 4 a.m., which helped her pain significantly. She did get some oral oxycodone this morning and says her pain is just a little bit better. She feels her breathing is good other than when she is up and moving around, then her heart rate goes faster. She has had no chest pain, no abdominal pain. She is tolerating a diet, but eating only about 50%. She has been afebrile. She is not coughing. Her white count decreased further this morning. She did have a recent admission for qyv-PY-xfjnugwld [place] and similar things in [place], was discharged on 08/11. Her white count was also low normal to low at that time, discharging at 2.3. Yesterday, the patient ended up getting 120 mg of Cardizem instead of amiodarone, and with more fluids and pain control, her heart rates came down nicely to the 80s. They did spike up again this morning to 120s and 140s when she was in more pain, but they are improved again this morning. OBJECTIVE: Vital Signs: Her temperature is 98.2, pulse 96, blood pressure 145/84, respiratory rate 18, O2 of 98 on room air. General: She is in no acute distress. Heart: Irregularly irregular. Lungs: Sounds are clear to auscultation bilaterally without crackles or wheezes. Abdomen: Has positive bowel sounds. Soft, nontender. Extremities: Warm and dry. She has no edema. Mental Status: She is alert and orientated x3. Skin: Pale, but overall she is improved from yesterday. LABORATORY DATA: White count down to 1.7, it was 1.8 yesterday, up to 2.8 in the afternoon; hemoglobin 8.7; platelets 160; absolute neutrophil count was 800, neutrophils 47. Inflammation markers completely normal on admission. INR 2.2. Sodium 142, potassium 4.2, chloride 108, bicarb 27, BUN 9, creatinine 0.8. Troponin 0.136, up slightly from 0.133 yesterday. Glucose 91, calcium 8.4. ASSESSMENT AND PLAN: 1. Neutropenia for about the last 1 week with slight worsening, unknown etiology. Her inflammatory markers looked quite good on admission. There has been no signs of infection. She is on digoxin and primidone, although she has taken these medications quite a long time. We will get a peripheral smear and continue to monitor. B12 level is pending. We will give her another IM dose of B12 and have her on oral folic acid. 2. Foh-MI-kzzraapbr myocardial infarction. Her troponin has stabilized. She is not having any active symptoms. We will continue on telemetry. She is on her beta valentino and statin. 3. Atrial fibrillation with rapid ventricular response. With better pain control and fluids, her heart rates have improved. We will continue the metoprolol and digoxin. We will not add any further medications. We will continue telemetry. She is therapeutic with Coumadin. 4. Mechanical mitral valve. I will give her the 5 mg dose of Coumadin today instead of her regular 2.5 and recheck tomorrow. 5. Rectal pain. Advised to continue with the scheduled lidocaine gel. Try to use more oral pain medications, try to use ice. 6. No history of obstructive coronary disease. 7. Chronic diastolic heart failure, stable without exacerbation. If blood pressures stay up, we will need to restart her Lasix. 8. Chronic kidney disease, stage 2. Her kidney function is stable. 9. Chronic iron deficiency anemia. She is due for an iron infusion tomorrow. 10.History of ventricular fibrillation arrest in the past, but no ICD in place as it was infected and removed years ago. 11.Hyperglycemia. Has not had any issues here. 12.Osteoporosis. PLAN: At this point, the patient will continue on acute cares. We will give her another dose of IM B12. We will start folic acid. We will give another 2 weeks' time for further workup of her neutropenia unless it were to get worse. Peripheral smear was ordered. IV fluids have been stopped. We will repeat lab work tomorrow to include liver enzymes. Overall, the patient is feeling much better, and I anticipate she will be going home tomorrow. However, given her third admission now in the last month, I do not advise trying to mejia her out today. MKA: 08/19/2020 11:20:49 MODL: 08/19/2020 12:17:42 /[id number]
[2020-08-19] MEDS ORDERED: Warfarin 5 MG Tab PO SCH (20:00)
[2020-08-19] MEDS: atorvaSTATin 40 MG Tab PO SCH (20:04)
[2020-08-19] MEDS: Melatonin 3 MG Tab PO SCH (20:05)
[2020-08-19] MEDS: Acetaminophen 325 MG Tab PO PRN (20:07)
[2020-08-20] MEDS: Sodium Chloride 0.9% 10 ML Syringe FLUSH PRN (05:59)
[2020-08-20 07:03] LABS: ANION GAP 11.1 mmol/L (10-20)
[2020-08-20] MEDS: HYDROmorphone 0.5 MG/0.5 ML Syringe IVPUSH PRN (08:23)
[2020-08-20] MEDS: Primidone 50 MG Tab PO SCH (08:26)
[2020-08-20] MEDS: Folic Acid 1 MG Tab PO SCH (08:26)
[2020-08-20] MEDS: Gabapentin 100 MG Cap PO SCH (08:26)
[2020-08-20] MEDS: Digoxin 125 MCG Tab PO SCH (08:26)
[2020-08-20] MEDS: Potassium Chloride 10 MEQ Tab.ER PO SCH (08:26)
[2020-08-20] MEDS: Acetaminophen 500 MG Tab PO SCH ×2 (08:27→12:12)
[2020-08-20] MEDS: Polyethylene Glycol 3350 Powder 17 GM Packet PO SCH (08:27)
[2020-08-20] MEDS: Metoprolol Tartrate 50 MG Tab PO SCH (08:27)
[2020-08-20] MEDS: Lactulose Soln 10 GM/15 ML 30 ML UD Cup PO SCH (08:28)
[2020-08-20] MEDS: Lidocaine 2% Jelly 5 ML Tube TOP SCH ×2 (08:29→12:09)
[2020-08-20] MEDS ORDERED: Diltiazem 120 MG Cap.CD PO ONE (08:54)
[2020-08-20] MEDS ORDERED: Magnesium Oxide 400 MG Tab PO SCH (09:00)
[2020-08-20 10:05] VITALS: BP 129/74; PULSE 90
--- NOTE | 2020-08-20 10:58 | CT ---
[id number] CT/CT Head WO IV EXAM: CT Head WO IV CLINICAL DATA: HEADACHE COMPARISON: NO PREVIOUS SIMILAR EXAM IS AVAILABLE FOR COMPARISON. FINDINGS: There is no mass or mass effect. There is no hemorrhage or hydrocephalus. There are no extra-axial fluid collections. There are no sites of abnormal attenuation. IMPRESSION: NO PLAIN CT EVIDENCE OF ACUTE INTRACRANIAL PROCESS. Mark Perea MD 08/20/20 0976 Thank you for allowing us to participate in the care of your patient.
--- NOTE | 2020-08-20 11:00 | PN ---
Progress Note for BLAKE CONTEH Date: 08/20/2020 Room #: VM.204 SUBJECTIVE: This is hospital day #3, acute care #4 overall for a 79-year-old admitted with weakness and shortness of breath. She is no longer having shortness of breath. She did not require any blood transfusions. She was having a lot a rectal pain from hemorrhoid surgery that was done last month, but that is better now. She was having bowel movements yesterday that were looser on her bowel regimen, but this morning, around 6 a.m. or so, she woke up with a headache. This is not that unusual for her, but she feels like it is a bad one, at least 5/10, over the right side. She would not want to try getting up and doing anything with it. She stated over the last year, she has had several headaches on this side. She has no vision changes and no weakness in her arms or legs. She has not had any fever or cough. Otherwise, she did not eat very well for supper last night but ate 90% for lunch. She has had good oral intake yesterday. Her Lasix has been on hold, but her blood pressure is excellent. OBJECTIVE: Vital Signs: Her temperature is 99.4, pulse 95, blood pressure 129/74, respiratory rate 20, and O2 of 100 on room air. General: She is in no acute distress. Heart: Irregularly irregular with tachycardia. Lungs: Her lung sounds are clear to auscultation bilaterally without crackles or wheezes. Abdomen: Positive bowel sounds. Soft and nontender. Extremities: Warm and dry. No edema. Mental Status: Alert and orientated x3. Pupils are equal, round, and reactive to light. Moving all extremities equally. She has equal strength. LABORATORY DATA: In addition, lab work did show INR to go up to 3.3 today. B12 returned normal, 671. White count up to 2.0; hemoglobin 9, which is up; and platelets 160. Sodium 141, potassium 4.1, chloride 107, bicarb 27, BUN 7, creatinine 1, and glucose 86. Calcium 8.3. LFTs are normal today. The absolute neutrophil count is 700. ASSESSMENT: 1. Headaches. The patient reports a history of this. I will recheck a sed rate today. It was normal on admission. Due to her anticoagulation, we will order a head CT. The patient does not have any neurologic deficits, and blood pressure is under good control. 2. Atrial fibrillation with rapid ventricular response, probably due to pain again. Heart rates are consistently at 110 or above and even up to 150. We will give her another oral Cardizem dose today. She is now getting her a.m. medications. 3. Iron-deficiency anemia. She got some IV iron on Sunday. Her hemoglobin is stable. Due to the headache and feeling poorly, I am holding off on her IV iron dose today. 4. Neutropenia, worsening down to 700 despite WBC count going up. The patient has no fevers. The etiology of this is unknown. A couple of her medications could potentially cause; however, she has been on them long- term. This has been going on 6 months but worsening. 5. Pfh-WQ-btgqttdnz myocardial infarction due to atrial fibrillation with rapid ventricular response and anemia. The patient does not have obstructive coronary disease. Her troponin trended down and stabilized. She is on a beta-valentino and statin. 6. Mechanical mitral valve. INR is up to 3.3 today. It had been 2.2. She did get a higher dose like 2.5. With her normal dose yesterday, she got 5. We will need to give her 2.5 instead of 5 tonight. 7. Rectal pain due to recent hemorrhoid surgery, seems to be improving with current cares. 8. Chronic diastolic heart failure, stable without exacerbation. She is not on any Lasix right now. 9. Chronic kidney disease stage 2. Kidney function is stable. 10.Hyperglycemia. No issues with blood sugars. 11.Osteoporosis. PLAN: The patient will continue on acute cares with a CT scan of the head. Potentially, we will be able to discharge her home later today if her headache resolves and she is feeling better. She will need outpatient followup for her white count and neutrophils. We will do an ESR this morning and send out an BARTOLO test and a mag level as well. MKA: 08/20/2020 09:01:50 MODL: 08/20/2020 10:50:52 /[id number]
--- NOTE | 2020-08-20 13:31 | PCM.DCSUM1 ---
Discharge Summary - Hospital Course Free Text/Narrative:: See detailed progress note from today. Patient admitted with SOB and weakness due to NSTEMI. Had some mild rectal bleeding which has resolved. Hgb remained stable and did not need transfusion. Had a. fib with RVR improved with pain control and fluids. - Discharge Data Discharge Date: 08/20/20 Discharge Disposition: Home, Self-Care 01 Condition: Good - Referral to Home Health Primary Care Physician: Xuan Rendon DO - Patient Summary/Data Consults: Consultations 08/17/20 16:43 PT Evaluation and Treatment [CONS] Routine - Patient Instructions Diet: Usual Diet as Tolerated Driving: Do Not Drive Notify Provider of: Fever, Increased Pain, Nausea and/or Vomiting - Discharge Plan *PRESCRIPTION DRUG MONITORING PROGRAM REVIEWED*: Yes *COPY OF PRESCRIPTION DRUG MONITORING REPORT IN PATIENT FITZ: Yes Prescriptions/Med Rec: Lactulose [Cephulac] 20 gm PO DAILY #30 cup Gabapentin [Neurontin] 200 mg PO BID #120 Home Medications: Home Meds Cholecalciferol (Vitamin D3) [Vitamin D3] 4,000 unit PO DAILY 04/30/14 [History] Rosuvastatin [Crestor] 10 mg PO QPM 04/30/14 [History] Furosemide [Lasix] 20 mg PO DAILY 05/10/14 [History] Magnesium Chloride [Mag-64] 64 mg PO DAILY #30 tab.er 05/10/14 [Rx] Acetaminophen 650 mg PO Q4H PRN 11/03/15 [History] Metoprolol Tartrate 100 mg PO BID 11/03/15 [History] Digoxin [Lanoxin] 125 mcg PO DAILY #30 tablet 11/08/15 [Rx] Biotin 5 mg PO DAILY 10/30/18 [History] Calcium Carbonate/Vitamin D3 [Calcium 500 mg Chewable Tablet] 1 each PO TID 10/30/18 [History] Cyanocobalamin (Vitamin B-12) [B-12] 1,000 mcg PO DAILY 10/30/18 [History] Denosumab [Prolia] 60 mg SQ Q180D 10/30/18 [History] Melatonin 5 mg PO BEDTIME PRN 10/30/18 [History] Primidone [Mysoline] 50 mg PO TID 10/30/18 [History] Sennosides/Docusate Sodium [Senna Plus Tablet] 1 tab PO DAILY 10/30/18 [History] Warfarin [Coumadin] 2.5 mg PO DAILY 10/30/18 [History] Gabapentin [Neurontin] 200 mg PO BEDTIME 10/15/19 [History] Multivitamin [Daily Multiple Vitamin] 1 each PO DAILY 10/15/19 [History] Ascorbic Acid [Vitamin C] 250 mg PO Q48H 03/23/20 [History] ClonazePAM [KlonoPIN] 0.5 mg PO BEDTIME PRN 03/23/20 [History] Potassium Chloride 10 meq PO DAILY 03/23/20 [History] Acetaminophen [Tylenol Extra Strength] 1,000 mg PO TID tablet 08/20/20 [Rx] Cetirizine [ZyrTEC] 10 mg PO DAILY PRN #0 08/20/20 [Rx] Gabapentin [Neurontin] 200 mg PO BID #120 08/20/20 [Rx] Lactulose [Cephulac] 20 gm PO DAILY #30 cup 08/20/20 [Rx] Warfarin [Coumadin] 2.5 mg PO SUTUTHFRSA@2000 tablet 08/20/20 [Rx] Warfarin [Coumadin] 5 mg PO MOWE@2000 tablet 08/20/20 [Rx] oxyCODONE 5 mg PO Q6H PRN tablet 08/20/20 [Rx] polyethylene glycoL 3350 [MiraLAX] 17 gm PO DAILY packet 08/20/20 [Rx] Oxygen Therapy Mode: Room Air - Discharge Summary/Plan Comment DC Time >30 min.: Yes Discharge Summary/Plan Comment: Recheck in the clinic next week with lab work Oxycodone for pain control. - General Info Date of Service: 08/20/20 - Patient Data Vitals - Most Recent: Last Vital Signs Temp 97.8 F 08/20/20 10:00 Pulse 90 08/20/20 10:00 Resp 20 08/20/20 06:00 BP 129/74 08/20/20 10:00 Pulse Ox 98 08/20/20 10:00 Weight - Most Recent: 49.895 kg I&O - Last 24 hours: Intake & Output 08/19/20 08/20/20 08/20/20 22:59 06:59 14:59 Output Total 250 250 Balance -250 -250 Lab Results - Last 24 hrs: Laboratory Results - last 24 hr 08/19/20 08/20/2020 Range/Units 06:30 06:25 06:25 WBC 1.9 L 2.0 L (3.9-11.3) x10-3 ul RBC 3.81 L 3.87 L (4.10-5.30) x10-6 ul Hgb 8.8 L 9.0 L (12.0-16.0) gm/dL Hct 30.9 L 30.8 L (37.0-47.0) % MCV 81 L 79.6 (83-99) fL MCH 23.1 L 23.3 L (28.0-32.0) pg MCHC 28.5 L 29.2 L (32.0-36.0) g/dL RDW 18.3 H (10.9-15.7) % RDW Coeff of Lashay 18.0 H (10.0-15.0) % Plt Count 187 160 (150-400) x10-3 ul Neut % (Auto) 35.6 L (50.0-80.0) % Lymph % (Auto) 48.5 (25.0-50.0) % [place] % (Auto) 11.4 H (2.0-11.0) % Eos % (Auto) 3.5 (0.0-4.0) % Baso % (Auto) 1.0 (0.2-1.2) % Add Manual Diff No Neutrophils % (Manual) 46 % Band Neuts % (Manual) 0 % Lymphocytes % (Manual) 45 % Monocytes % (Manual) 7 % Eosinophils % (Manual) 2 % Basophils % (Manual) 0 % Neutrophils # (Manual) 0.87 L (1.80-7.00) x10-3 ul Band Neutrophils # Man 0.00 (0.00-0.70) x10-3 ul Lymphocytes # (Manual) 0.86 L (1.00-4.80) x10-3 ul Monocytes # (Manual) 0.13 (0.00-0.80) x10-3 ul Eosinophils # (Manual) 0.04 (0.00-0.45) x10-3 ul Basophils # (Manual) 0.00 (0.00-0.20) x10-3 ul RBC/WBC/PLT Morphology Abnormal (Normal) Platelet Estimate Adequate Hypochromasia 3+ /hpf Microcytosis 1+ /hpf Tear Drop Cells 1+ /hpf Ovalocytes 2+ /hpf Dania Cells 1+ /hpf RBC Fragments 1+ /hpf Smear Path Review Path rpt ESR (0-20) mm/hr Absolute Retic 0.0286 (0.0200-0.1000) x10-6 ul Percent Retic 0.8 (0.3-2.2) % Immature Retic Fraction 14.1 (3.0-15.9) % Retic Hgb Equivalent 29.3 L (31.9-38.5) pg PT (9.5-12.3) SEC INR (2.0-3.5) Sodium 141 (136-145) mmol/L Potassium 4.1 (3.5-5.1) mmol/L Chloride 107 (98-107) mmol/L Carbon Dioxide 27 (21-32) mmol/L Anion Gap 11.1 (10-20) mmol/L BUN 7 (7-18) mg/dL Creatinine 1.0 (0.55-1.02) mg/dL Est Cr Clr Drug Dosing 36.52 mL/min Estimated GFR (MDRD) 54 Glucose 86 (74-106) mg/dL Calcium 8.3 L (8.5-10.1) mg/dL Corrected Calcium 9.02 (8.5-10.1) mg/dL Magnesium (1.8-2.4) mg/dL Total Bilirubin 0.4 (0.2-1.0) mg/dL AST 30 (15-37) U/L ALT 26 (14-59) U/L Alkaline Phosphatase 51 (46-116) U/L Total Protein 6.1 L (6.4-8.2) g/dL Albumin 3.1 L (3.4-5.0) g/dL Globulin 3.0 Albumin/Globulin Ratio 1.03 08/20/20 08/20/20 08/20/20 Range/Units 06:25 06:25 06:25 WBC (3.9-11.3) x10-3 ul RBC (4.10-5.30) x10-6 ul Hgb (12.0-16.0) gm/dL Hct (37.0-47.0) % MCV (83-99) fL MCH (28.0-32.0) pg MCHC (32.0-36.0) g/dL RDW (10.9-15.7) % RDW Coeff of Lashay (10.0-15.0) % Plt Count (150-400) x10-3 ul Neut % (Auto) (50.0-80.0) % Lymph % (Auto) (25.0-50.0) % [place] % (Auto) (2.0-11.0) % Eos % (Auto) (0.0-4.0) % Baso % (Auto) (0.2-1.2) % Add Manual Diff Neutrophils % (Manual) % Band Neuts % (Manual) % Lymphocytes % (Manual) % Monocytes % (Manual) % Eosinophils % (Manual) % Basophils % (Manual) % Neutrophils # (Manual) (1.80-7.00) x10-3 ul Band Neutrophils # Man (0.00-0.70) x10-3 ul Lymphocytes # (Manual) (1.00-4.80) x10-3 ul Monocytes # (Manual) (0.00-0.80) x10-3 ul Eosinophils # (Manual) (0.00-0.45) x10-3 ul Basophils # (Manual) (0.00-0.20) x10-3 ul RBC/WBC/PLT Morphology (Normal) Platelet Estimate Hypochromasia /hpf Microcytosis /hpf Tear Drop Cells /hpf Ovalocytes /hpf Williams Cells /hpf RBC Fragments /hpf Smear Path Review ESR 5 (0-20) mm/hr Absolute Retic (0.0200-0.1000) x10-6 ul Percent Retic (0.3-2.2) % Immature Retic Fraction (3.0-15.9) % Retic Hgb Equivalent (31.9-38.5) pg PT 33.6 H D (9.5-12.3) SEC INR 3.3 (2.0-3.5) Sodium (136-145) mmol/L Potassium (3.5-5.1) mmol/L Chloride (98-107) mmol/L Carbon Dioxide (21-32) mmol/L Anion Gap (10-20) mmol/L BUN (7-18) mg/dL Creatinine (0.55-1.02) mg/dL Est Cr Clr Drug Dosing mL/min Estimated GFR (MDRD) Glucose (74-106) mg/dL Calcium (8.5-10.1) mg/dL Corrected Calcium (8.5-10.1) mg/dL Magnesium 1.9 (1.8-2.4) mg/dL Total Bilirubin (0.2-1.0) mg/dL AST (15-37) U/L ALT (14-59) U/L Alkaline Phosphatase (46-116) U/L Total Protein (6.4-8.2) g/dL Albumin (3.4-5.0) g/dL Globulin Albumin/Globulin Ratio Med Orders - Current: Current Medications Acetaminophen (Tylenol Extra Strength) 1,000 mg PO TID [facility] Last Admin: 08/20/20 12:12 Dose: 1,000 mg Documented by: Atorvastatin Calcium (Lipitor) 40 mg PO BEDTIME [facility] Last Admin: 08/19/20 20:04 Dose: 40 mg Documented by: Clonazepam (Klonopin) 0.5 mg PO BEDTIME PRN PRN Reason: Insomnia Last Admin: 08/19/20 20:08 Dose: 0.5 mg Documented by: Digoxin (Lanoxin) 125 mcg PO DAILY [facility] Last Admin: 08/20/20 08:26 Dose: 125 mcg Documented by: Folic Acid (Folic Acid) 1 mg PO DAILY [facility] Last Admin: 08/20/20 08:26 Dose: 1 mg Documented by: Gabapentin (Neurontin) 200 mg PO BID [facility] Last Admin: 08/20/20 08:26 Dose: 200 mg Documented by: Hydromorphone HCl (Dilaudid) 0.5 mg IVPUSH Q2H PRN PRN Reason: Pain Last Admin: 08/20/20 08:23 Dose: 0.5 mg Documented by: Lactulose (Cephulac) 20 gm PO DAILY [facility] Last Admin: 08/20/20 08:28 Dose: 20 gm Documented by: Lidocaine HCl (Xylocaine 2% Jelly) 0 ml TOP QID [facility] Last Admin: 08/20/20 12:09 Dose: 1 applic Documented by: Magnesium Oxide (Magnesium Oxide) 400 mg PO DAILY [facility] Last Admin: 08/20/20 09:33 Dose: 400 mg Documented by: Melatonin (Melatonin) 6 mg PO BEDTIME [facility] Last Admin: 08/19/20 20:05 Dose: 6 mg Documented by: Metoprolol Tartrate (Lopressor) 100 mg PO BID [facility] Last Admin: 08/20/20 08:27 Dose: 100 mg Documented by: Ondansetron HCl (Zofran Odt) 4 mg PO Q4H PRN PRN Reason: nausea, able to take PO Last Admin: 08/19/20 15:40 Dose: 4 mg Documented by: Oxycodone HCl (Oxycodone) 5 mg PO Q6H PRN PRN Reason: Hemorrhoids Last Admin: 08/19/20 13:30 Dose: 5 mg Documented by: Polyethylene Glycol (Miralax) 17 gm PO DAILY [facility] Last Admin: 08/20/20 08:27 Dose: 17 gm Documented by: Potassium Chloride (Klor-Con 10) 10 meq PO DAILY [facility] Last Admin: 08/20/20 08:26 Dose: 10 meq Documented by: Primidone (Mysoline) 50 mg PO DAILY [facility] Last Admin: 08/20/20 08:26 Dose: 50 mg Documented by: Primidone (Mysoline) 25 mg PO BID@1599,1999 [facility] Last Admin: 08/19/20 20:05 Dose: 25 mg Documented by: Senna/Docusate Sodium (Senna Plus) 1 tab PO DAILY [facility] Last Admin: 08/20/20 08:27 Dose: 1 tab Documented by: Sodium Chloride (Saline Flush) 10 ml FLUSH ASDIRECTED PRN PRN Reason: Keep Vein Open Last Admin: 08/20/20 05:59 Dose: 10 ml Documented by: Warfarin Sodium (Coumadin) 2.5 mg PO SUTUSA@1999 [facility] Warfarin Sodium (Coumadin) 5 mg PO MOWETHFR@1999 [facility] Last Admin: 08/19/20 20:06 Dose: 5 mg Documented by: Discontinued Medications Acetaminophen (Tylenol) 650 mg PO Q4H PRN PRN Reason: Pain/Fever Last Admin: 08/18/20 08:59 Dose: 650 mg Documented by: Amiodarone HCl (Cordarone) 400 mg PO BID [facility] Last Admin: 08/18/20 09:01 Dose: Not Given Documented by: Cyanocobalamin (Vitamin B12) 1,000 mcg IM ONETIME ONE Stop: 08/18/20 08:26 Last Admin: 08/18/20 08:59 Dose: 1,000 mcg Documented by: Cyanocobalamin (Vitamin B12) 1,000 mcg IM ONETIME ONE Stop: 08/19/20 11:14 Last Admin: 08/19/20 12:02 Dose: 1,000 mcg Documented by: Diltiazem HCl (Cardizem Cd) 120 mg PO ONETIME ONE Stop: 08/18/20 08:50 Last Admin: 08/18/20 09:11 Dose: 120 mg Documented by: Diltiazem HCl (Cardizem Cd) 120 mg PO ONETIME ONE Stop: 08/20/20 08:55 Last Admin: 08/20/20 09:32 Dose: 120 mg Documented by: Gabapentin (Neurontin) 200 mg PO BEDTIME [facility] Last Admin: 08/17/20 19:22 Dose: 200 mg Documented by: Gabapentin (Neurontin) 100 mg PO DAILY [facility] Last Admin: 08/18/20 09:02 Dose: 100 mg Documented by: Sodium Chloride (Normal Saline) 1,000 mls @ 50 mls/hr IV ASDIRECTED [facility] Last Admin: 08/17/20 21:49 Dose: 50 mls/hr Documented by: Lidocaine HCl (Xylocaine 2% Jelly) 0 ml TOP Q2H PRN PRN Reason: RECTAL PAIN Last Admin: 08/18/20 05:45 Dose: 1 applic Documented by: Melatonin (Melatonin) 6 mg PO BEDTIME PRN PRN Reason: Sleep Last Admin: 08/17/20 20:04 Dose: 6 mg Documented by: Metoprolol Tartrate (Lopressor) 100 mg PO ONETIME ONE Stop: 08/17/20 17:01 Last Admin: 08/17/20 16:54 Dose: 100 mg Documented by: Oxycodone HCl (Oxycodone) 5 mg PO Q4H PRN PRN Reason: Hemorrhoids Warfarin Sodium (Coumadin) 2.5 mg PO SuTuThSa@1999 [facility] Last Admin: 08/17/20 19:22 Dose: 2.5 mg Documented by: Warfarin Sodium (Coumadin) 5 mg PO MoWeFr@1999 [facility] Last Admin: 08/18/20 19:39 Dose: 5 mg Documented by: Comments:: see detailed progress note from today
--- NOTE | 2020-08-20 13:36 | PCM.SN.2 ---
- Free Text/Narrative Note: peripheral smear pending.
[2020-08-21] MEDS ORDERED: Warfarin 2.5 MG Tab PO SCH (20:00)
== END 2020-08-20 14:30 | disposition home or self-care (01) | DRG 281 ==
LOC: VM.MS 08:26 → OBSVTOIN 08-18 08:26
PROVIDERS: ADMIT Internal Medicine; ATTEND Internal Medicine
DX: I21.4 Non-ST elevation (NSTEMI) myocardial infarction (principal); K62.5 Hemorrhage of anus and rectum; I48.20 Chronic atrial fibrillation, unspecified; E86.0 Dehydration; I50.32 Chronic diastolic (congestive) heart failure; R00.0 Tachycardia, unspecified; D50.0 Iron deficiency anemia secondary to blood loss (chronic); D50.9 Iron deficiency anemia, unspecified; I25.10 Atherosclerotic heart disease of native coronary artery without angina pectoris; R73.9 Hyperglycemia, unspecified; D72.819 Decreased white blood cell count, unspecified; J30.1 Allergic rhinitis due to pollen; E78.5 Hyperlipidemia, unspecified; E78.1 Pure hyperglyceridemia; I27.20 Pulmonary hypertension, unspecified; K64.9 Unspecified hemorrhoids; Z86.79 Personal history of other diseases of the circulatory system; Z95.2 Presence of prosthetic heart valve; Z79.01 Long term (current) use of anticoagulants; Z86.19 Personal history of other infectious and parasitic diseases; Z98.890 Other specified postprocedural states; K62.89 Other specified diseases of anus and rectum; I48.91 Unspecified atrial fibrillation; Z95.4 Presence of other heart-valve replacement; Z86.74 Personal history of sudden cardiac arrest; I13.0 Hypertensive heart and chronic kidney disease with heart failure and stage 1 through stage 4 chronic kidney disease, or unspecified chronic kidney disease; Z79.899 Other long term (current) drug therapy; N18.2 Chronic kidney disease, stage 2 (mild); M81.0 Age-related osteoporosis without current pathological fracture; Z20.828 Contact with and (suspected) exposure to other viral communicable diseases
CPT/HCPCS: 36415; 70450; 71045; 80048; 80053; 82607; 83735; 83880; 84484; 85008; 85018; 85025; 85046; 85610; 85652; 86038; 86140; 93005; 96360; 96361; 97116-GP; 97161-GP; A9270-GY; G0378; G0379; J1170; J3420; J7030; U0002

== ENCOUNTER 2020-09-23 09:17 | Emergency (ER) | payer MEDICARE, OTHER ==
[2020-09-23] MEDS ORDERED: Sodium Chloride 0.9% 10 ML Syringe FLUSH PRN (09:58)
[2020-09-23] MEDS ORDERED: Aspirin 81 MG Tab.Chew PO ONE (10:04)
[2020-09-23] MEDS ORDERED: Morphine 2 MG/ML SYRINGE IVPUSH ONE (10:04)
[2020-09-23 10:31] LABS: ANION GAP 11.4 mmol/L (10-20); CHLORIDE,CL 103 mmol/L (98-107); SODIUM,NA 138 mmol/L (136-145)
[2020-09-23] MEDS ORDERED: dexAMETHasone 2 MG, dexAMETHasone 4 MG PO ONE ×2 (10:54)
[2020-09-23] MEDS ORDERED: Ondansetron 4 MG/2 ML SDV IV ONE (10:58)
--- NOTE | 2020-09-23 11:28 | CR ---
[id number] RAD/RAD Chest PA or AP 1V EXAM: RAD Chest PA or AP 1V INDICATION: COVID +, CP. COMPARISON: Multiple recent priors dating to July 2020. Most recent from August 17, 2020. DISCUSSION: Persistent bibasal parenchymal opacities. No significant change compared to July 2020. Changes of COPD are unchanged. Cardiomegaly and central vascular congestion also unchanged. IMPRESSION: No significant change from examinations dating to July 2020. Fausto Waters MD 09/23/20 1127 Thank you for allowing us to participate in the care of your patient.
--- NOTE | 2020-09-23 13:27 | EDM.PDOC ---
ED HPI GENERAL MEDICAL PROBLEM - General Chief Complaint: Chest Pain Stated Complaint: SHOTNESS OF BREATH CHEST PAIN Time Seen by Provider: 09/23/20 09:30 Source of Information: Reports: Patient History Limitations: Reports: No Limitations - History of Present Illness INITIAL COMMENTS - FREE TEXT/NARRATIVE: Patient comes emergency department today from home with complaints of weakness and shortness of breath. This patient's was diagnosed with COVID-19 about 2 weeks ago. She has been attempting to quarantine herself in the same house as him. Over the past couple of days almost a week she has had increased weakness fatigue malaise and body aches. She has slowly developed shortness of breath that initially was exertional but now is at rest. She has some tightness in her chest that gets worse with deep breath cough and movement. No sharp shooting stabbing chest pain. No cough or congestion. She has had some fever and chills. No nausea no vomiting. No loss of taste or smell. No abdominal pain. She has had a couple bouts of diarrhea that are not black or tarry. No urinary symptoms. She has not been drinking much for fluids nor has she been eating much for food. Chest Pain Score (Numeric/FACES): 4 - Related Data Allergies Allergy/AdvReac Type Severity Reaction Status Date / Time cat dander Allergy Shortness Verified 09/23/20 09:58 of Breath pollen extracts AdvReac Cough Verified 09/23/20 09:58 Home Meds: Home Meds Cholecalciferol (Vitamin D3) [Vitamin D3] 4,000 unit PO DAILY 04/30/14 [History] Rosuvastatin [Crestor] 10 mg PO QPM 04/30/14 [History] Furosemide [Lasix] 20 mg PO DAILY 05/10/14 [History] Magnesium Chloride [Mag-64] 64 mg PO DAILY #30 tab.er 05/10/14 [Rx] Acetaminophen 650 mg PO Q4H PRN 11/03/15 [History] Metoprolol Tartrate 100 mg PO BID 11/03/15 [History] Digoxin [Lanoxin] 125 mcg PO DAILY #30 tablet 11/08/15 [Rx] Biotin 5 mg PO DAILY 10/30/18 [History] Calcium Carbonate/Vitamin D3 [Calcium 500 mg Chewable Tablet] 1 each PO TID 10/30/18 [History] Cyanocobalamin (Vitamin B-12) [B-12] 1,000 mcg PO DAILY 10/30/18 [History] Denosumab [Prolia] 60 mg SQ Q180D 10/30/18 [History] Melatonin 5 mg PO BEDTIME PRN 10/30/18 [History] Primidone [Mysoline] 50 mg PO TID 10/30/18 [History] Sennosides/Docusate Sodium [Senna Plus Tablet] 1 tab PO DAILY 10/30/18 [History] Warfarin [Coumadin] 2.5 mg PO DAILY 10/30/18 [History] Gabapentin [Neurontin] 200 mg PO BEDTIME 10/15/19 [History] Multivitamin [Daily Multiple Vitamin] 1 each PO DAILY 10/15/19 [History] Ascorbic Acid [Vitamin C] 250 mg PO Q48H 03/23/20 [History] ClonazePAM [KlonoPIN] 0.5 mg PO BEDTIME PRN 03/23/20 [History] Potassium Chloride 10 meq PO DAILY 03/23/20 [History] Acetaminophen [Tylenol Extra Strength] 1,000 mg PO TID tablet 08/20/20 [Rx] Cetirizine [ZyrTEC] 10 mg PO DAILY PRN #0 08/20/20 [Rx] Gabapentin [Neurontin] 200 mg PO BID #120 08/20/20 [Rx] Lactulose [Cephulac] 20 gm PO DAILY #30 cup 08/20/20 [Rx] Warfarin [Coumadin] 2.5 mg PO SUTUTHFRSA@2000 tablet 08/20/20 [Rx] Warfarin [Coumadin] 5 mg PO MOWE@2000 tablet 08/20/20 [Rx] oxyCODONE 5 mg PO Q6H PRN tablet 08/20/20 [Rx] polyethylene glycoL 3350 [MiraLAX] 17 gm PO DAILY packet 08/20/20 [Rx] dexAMETHasone [Dexamethasone] 6 mg PO DAILY 10 Days tablet 09/23/20 [Rx] Past Medical History HEENT History: Reports: None Cardiovascular History: Reports: Arrhythmia, Bacterial Endocarditis, CAD, Heart Failure, Heart Valve Replacement, High Cholesterol Genitourinary History: Reports: Acute Renal Failure Musculoskeletal History: Reports: Osteoporosis Psychiatric History: Reports: Anxiety Endocrine/Metabolic History: Reports: Osteoporosis, Vitamin D Deficiency, Other (See Below) Other Endocrine/Metabolic History: hyperglycemia Hematologic History: Reports: Other (See Below) Other Hematologic History: thrombocytopenia - Past Surgical History HEENT Surgical History: Reports: None, Cataract Surgery Cardiovascular Surgical History: Reports: AICD, Valve Replacement GI Surgical History: Reports: Other (See Below) Other GI Surgeries/Procedures: hemorrhoidectomy Female Surgical History: Reports: Other (See Below) Other Female Surgeries/Procedures: COLPOSCOPY W/ ENDO CURETTE - MISCARRIAGE Social & Family History - Family History Other Cardiac Family History: sn-stents Oncologic: Reports: Breast - Caffeine Use Caffeine Use: Reports: None ED ROS GENERAL - Review of Systems Review Of Systems: Comprehensive ROS is negative, except as noted in HPI. ED EXAM, GENERAL - Physical Exam Exam: See Below Exam Limited By: No Limitations General Appearance: Alert, WD/WN, No Apparent Distress Eye Exam: Left Eye: EOMI, PERRL Ears: Normal External Exam, Normal TMs Nose: Normal Inspection, Normal Mucosa Throat/Mouth: Normal Inspection, Normal Lips, Normal Oropharynx, Normal Voice Head: Atraumatic, Normocephalic Neck: Normal Inspection, Supple, Non-Tender, Full Range of Motion Respiratory/Chest: No Respiratory Distress, No Accessory Muscle Use, Chest Non- Tender, Crackles (Fine inspiratory crackles bilaterally. No wheezing) Cardiovascular: Normal Peripheral Pulses, Regular Rate, Rhythm GI/Abdominal: Normal Bowel Sounds, Soft (Female) Exam: Deferred Rectal (Female) Exam: Deferred Back Exam: Normal Inspection, Full Range of Motion Extremities: Normal Inspection, Normal Range of Motion, Non-Tender, No Pedal Edema, Normal Capillary Refill Neurological: Alert, Oriented, Normal Cognition, No Motor/Sensory Deficits Psychiatric: Normal Affect, Normal Mood Skin Exam: Warm, Intact, Normal Color Lymphatic: No Adenopathy #1 Interpretation EKG Date: 09/23/20 Time: 21:34 Rhythm: A-Fib Rate (Beats/Min): 90 Datto: Normal P-Wave: Present QRS: Normal ST-T: Normal QT: Normal Course - Vital Signs Last Recorded V/S: Last Vital Signs Temp 97.9 F 09/23/20 10:01 Pulse 78 09/23/20 13:34 Resp 19 09/23/20 13:34 BP 133/43 L 09/23/20 13:34 Pulse Ox 98 09/23/20 13:34 - Orders/Labs/Meds Orders: Active Orders 24 hr Category Date Time Status Peripheral IV Insertion Adult [OM.PC] Stat Oth 09/23/20 09:57 Ordered Labs: Laboratory Tests 09/23/20 09/23/20 09/23/20 Range/Units 09:30 09:41 09:41 WBC 2.4 L (4.0-10.0) x10^3/uL RBC 4.61 (4.00-5.50) x10^6/uL Hgb 11.6 L D (12.0-16.0) g/dL Hct 36.8 (33.0-47.0) % MCV 79.8 (78.0-93.0) fL MCH 25.2 L (26.0-32.0) pg MCHC 31.5 L (32.0-36.0) g/dL RDW Coeff of Lashay 22.8 H (10.0-15.0) % Plt Count 132 (130-400) x10^3/uL Neut % (Auto) 58.7 (50.0-80.0) % Lymph % (Auto) 28.1 (25.0-50.0) % [place] % (Auto) 11.1 H (2.0-11.0) % Eos % (Auto) 2.1 (0.0-4.0) % Baso % (Auto) 0.0 L (0.2-1.2) % PT (9.5-12.3) SEC INR (2.0-3.5) APTT (25.6-32.8) SEC D-Dimer, Quantitative (<=0.58) mg/LFEU Sodium 138 (136-145) mmol/L Potassium 4.4 (3.5-5.1) mmol/L Chloride 103 (98-107) mmol/L Carbon Dioxide 28 (21-32) mmol/L Anion Gap 11.4 (10-20) mmol/L BUN 13 (7-18) mg/dL Creatinine 1.0 (0.55-1.02) mg/dL Est Cr Clr Drug Dosing TNP Estimated GFR (MDRD) 54 Glucose 92 (74-106) mg/dL Calcium 9.2 (8.5-10.1) mg/dL Corrected Calcium 9.44 (8.5-10.1) mg/dL Ferritin (8-252) ng/mL Total Bilirubin 0.7 (0.2-1.0) mg/dL AST 37 (15-37) U/L ALT 35 (14-59) U/L Alkaline Phosphatase 72 (46-116) U/L Lactate Dehydrogenase (81-234) U/L Troponin I 0.191 H* (<=0.056) ng/mL C-Reactive Protein 0.7 (<=0.9) mg/dL NT-Pro-B Natriuret Pep (<=450) pg/mL Total Protein 7.0 (6.4-8.2) g/dL Albumin 3.7 (3.4-5.0) g/dL Globulin 3.3 Albumin/Globulin Ratio 1.12 SARS CoV-2 RNA Rapid CLARK Positive H (NEGATIVE) 09/23/20 09/23/20 09/23/20 Range/Units 09:41 09:41 09:41 WBC (4.0-10.0) x10^3/uL RBC (4.00-5.50) x10^6/uL Hgb (12.0-16.0) g/dL Hct (33.0-47.0) % MCV (78.0-93.0) fL MCH (26.0-32.0) pg MCHC (32.0-36.0) g/dL RDW Coeff of Lashay (10.0-15.0) % Plt Count (130-400) x10^3/uL Neut % (Auto) (50.0-80.0) % Lymph % (Auto) (25.0-50.0) % [place] % (Auto) (2.0-11.0) % Eos % (Auto) (0.0-4.0) % Baso % (Auto) (0.2-1.2) % PT 37.6 H (9.5-12.3) SEC INR 3.7 H (2.0-3.5) APTT 47.0 H (25.6-32.8) SEC D-Dimer, Quantitative 3.79 H (<=0.58) mg/LFEU Sodium (136-145) mmol/L Potassium (3.5-5.1) mmol/L Chloride (98-107) mmol/L Carbon Dioxide (21-32) mmol/L Anion Gap (10-20) mmol/L BUN (7-18) mg/dL Creatinine (0.55-1.02) mg/dL Est Cr Clr Drug Dosing Estimated GFR (MDRD) Glucose (74-106) mg/dL Calcium (8.5-10.1) mg/dL Corrected Calcium (8.5-10.1) mg/dL Ferritin 80 (8-252) ng/mL Total Bilirubin (0.2-1.0) mg/dL AST (15-37) U/L ALT (14-59) U/L Alkaline Phosphatase (46-116) U/L Lactate Dehydrogenase 327 H (81-234) U/L Troponin I (<=0.056) ng/mL C-Reactive Protein (<=0.9) mg/dL NT-Pro-B Natriuret Pep (<=450) pg/mL Total Protein (6.4-8.2) g/dL Albumin (3.4-5.0) g/dL Globulin Albumin/Globulin Ratio SARS CoV-2 RNA Rapid CLARK (NEGATIVE) 09/23/20 09/23/20 Range/Units 09:41 13:32 WBC (4.0-10.0) x10^3/uL RBC (4.00-5.50) x10^6/uL Hgb (12.0-16.0) g/dL Hct (33.0-47.0) % MCV (78.0-93.0) fL MCH (26.0-32.0) pg MCHC (32.0-36.0) g/dL RDW Coeff of Lashay (10.0-15.0) % Plt Count (130-400) x10^3/uL Neut % (Auto) (50.0-80.0) % Lymph % (Auto) (25.0-50.0) % [place] % (Auto) (2.0-11.0) % Eos % (Auto) (0.0-4.0) % Baso % (Auto) (0.2-1.2) % PT (9.5-12.3) SEC INR (2.0-3.5) APTT (25.6-32.8) SEC D-Dimer, Quantitative (<=0.58) mg/LFEU Sodium (136-145) mmol/L Potassium (3.5-5.1) mmol/L Chloride (98-107) mmol/L Carbon Dioxide (21-32) mmol/L Anion Gap (10-20) mmol/L BUN (7-18) mg/dL Creatinine (0.55-1.02) mg/dL Est Cr Clr Drug Dosing Estimated GFR (MDRD) Glucose (74-106) mg/dL Calcium (8.5-10.1) mg/dL Corrected Calcium (8.5-10.1) mg/dL Ferritin (8-252) ng/mL Total Bilirubin (0.2-1.0) mg/dL AST (15-37) U/L ALT (14-59) U/L Alkaline Phosphatase (46-116) U/L Lactate Dehydrogenase (81-234) U/L Troponin I 0.192 H* (<=0.056) ng/mL C-Reactive Protein (<=0.9) mg/dL NT-Pro-B Natriuret Pep 2311 H (<=450) pg/mL Total Protein (6.4-8.2) g/dL Albumin (3.4-5.0) g/dL Globulin Albumin/Globulin Ratio SARS CoV-2 RNA Rapid CLARK (NEGATIVE) Meds: Medications Discontinued Medications Generic Name Dose Route Start Last Admin Trade Name Freq PRN Reason Stop Dose Admin Aspirin 324 mg 09/23/20 10:04 09/23/20 10:11 Aspirin PO 09/23/20 10:05 324 mg ONETIME ONE Administration Dexamethasone 2 mg/ 6 mg 09/23/20 10:54 09/23/20 11:28 Dexamethasone 4 mg PO 09/23/20 10:55 6 mg ONETIME ONE Administration Morphine Sulfate 2 mg 09/23/20 10:04 09/23/20 10:14 Morphine IVPUSH 09/23/20 10:05 2 mg ONETIME ONE Administration Ondansetron HCl 4 mg 09/23/20 10:58 09/23/20 11:32 Zofran IV 09/23/20 10:59 4 mg ONETIME ONE Administration Sodium Chloride 10 ml 09/23/20 09:58 Saline Flush FLUSH ASDIRECTED PRN Keep Vein Open - Radiology Interpretation Free Text/Narrative:: Chest x-ray per radiology shows persistent bibasilar parenchymal opacity. No significant change compared to July 2020. Changes of COPD are unchanged. Cardiomegaly and central vascular congestion also unchanged. - Re-Assessments/Exams Free Text/Narrative Re-Assessment/Exam: 09/23/20 Patient's Covid test is positive. She is not requiring any oxygenation. Her chest x-ray is unchanged from July 2020. Her WBC is 2.4. INR 3.7. The rest of her chemistries are unremarkable. Troponin 0 0.191. Although when I review her past visits in the emergency department it appears that she has a chronic elevation of her troponin which is about at baseline. CRP is 0.7. proBNP 2311 which is at about baseline for this patient she has no pedal edema. I did repeat her troponin at 4 hours which was 0.192. Feel that this patient is at high risk for Covid hospitalization with her comorbidities especially her congestive heart failure and coronary artery disease. As well as her COPD. We do not have the medication bamlanivimab. I called and was able to get outpatient treatment for this patient at [place] emergency department for the infusion of this medication as I feel that she is high risk with her Covid. Her troponin is chronically elevated and it is stable at this time. We will discharge her home with symptomatic management as well as vitamin C D and as well as zinc. She is comfortable with this plan and her questions were answered. Departure - Departure Time of Disposition: 13:17 Disposition: Home, Self-Care 01 Clinical Impression: COVID-19, Weakness, Elevated troponin - Discharge Information Prescriptions: dexAMETHasone [Dexamethasone] 6 mg PO DAILY 10 Days tablet Instructions: COVID-19 Frequently Asked Questions, Weakness, [id number], Prevent the Spread of COVID-19 if You Are Sick - [facility] Referrals: Xuan Rendon, DO [Primary Care Provider] - Forms: ED Department Discharge Additional Instructions: You really need to focus on drinking as much fluids as possible over the next few days. Tylenol as needed for pain fever discomfort. Dexamethasone 6mg daily for the next 10 days. From here when discharged from the ED go directly to [facility] ED and get an infusion called Bamlanivimab for the treatment of COVID. Vitamin C 500mg twice daily Vit D 5,000 units daily Zinc 50mg daily all of these vitamins are over the counter. Albuterol inhaler. 2 puffs every 4 hrs as needed for SOB cough wheezing. Pre scription to [facility]. Return to the ED if new or worsening symptoms. Follow up with PCP on sunday for recheck sooner if worse or not improving. Sepsis Event Note (ED) - Evaluation Sepsis Screening Result: No Definite Risk - Focused Exam Vital Signs: Vital Signs Temp Pulse Resp BP Pulse Ox 09/23/20 13:34 78 19 133/43 L 98 09/23/20 12:34 80 12 119/52 L 97 09/23/20 11:34 88 122/63 09/23/20 10:35 94 20 144/81 H 94 L 09/23/20 10:01 97.9 F 83 28 H 127/62 98 - My Orders Last 24 Hours: My Active Orders 09/23/20 09:57 Peripheral IV Insertion Adult [OM.PC] Stat - Assessment/Plan Last 24 Hours: My Active Orders 09/23/20 09:57 Peripheral IV Insertion Adult [OM.PC] Stat
[2020-09-23 18:13] VITALS: BP 133/43; PULSE 78
== END 2020-09-23 14:31 | disposition home or self-care (01) ==
LOC: SUPCPDRO 09:17 → VM.ED 09:17
DX: U07.1 COVID-19 (principal); R79.89 Other specified abnormal findings of blood chemistry; I25.10 Atherosclerotic heart disease of native coronary artery without angina pectoris; I11.0 Hypertensive heart disease with heart failure; I50.9 Heart failure, unspecified; E78.00 Pure hypercholesterolemia, unspecified; F41.9 Anxiety disorder, unspecified; Z79.01 Long term (current) use of anticoagulants; Z79.899 Other long term (current) drug therapy; Z91.048 Other nonmedicinal substance allergy status
CPT/HCPCS: 36415; 71045; 80053; 82728; 83615; 83880; 84484; 85025; 85379; 85610; 85730; 86140; 93005; 93010; 96374; 96375; 99284; 99285; A9270; J2270; J2405; J8540; U0002

== ENCOUNTER 2020-10-25 22:50 | Observation (INO) | payer MEDICARE, OTHER ==
--- NOTE | 2020-10-25 23:55 | EDM.PDOC ---
ED HPI GENERAL MEDICAL PROBLEM - General Chief Complaint: General Stated Complaint: Weakness, not feeling well, post COVID Time Seen by Provider: 10/25/20 23:05 Source of Information: Reports: Patient History Limitations: Reports: No Limitations - History of Present Illness INITIAL COMMENTS - FREE TEXT/NARRATIVE: Pt. presents to ER with complaints of "not feeling well". Pt. states that she noticed she was weak when she was getting ready for bed tonight. Primary complaint is of shortness of breath, LYONS, and weakness. Pt. states that she had a clinic appointment earlier today and states that she did not have symptoms at that time. She states that her appetite has been normal, and states that she ate dinner tonight with no problems. She states that she has no cough, productive or otherwise. Denies any fever or chills. Denies dysuria, frequency, urgency, hematuria, or pyuria. Denies any nausea, vomiting, or diarrhea. No melena, hematochezia, or hematemesis. Pt. denies any numbness/tingling in extremities. No unilateral weakness. No facial droop/numbness. No problems with speech or ambulation. Pt. had covid 19 in September. She had bamlanivimab, and states that her symptoms have all resolved. Pt. was seen in ER in and subsequently transferred to [place] where she was hospitalized for several days with NSTEMI, lower GI bleed, and atrial fibrillation. She was discharged Aug.11. She has a history of CAD with dilated cardiomyopathy, chronic diastolic HF, history of mitral valve replacement (mechanical). She is anticoagulated with coumadin. Heart cath in Dec. did not reveal any occlusive disease. She has a history of chronically elevated troponin and d dimer. She has been seen in ER here and in [place]. Her troponins were trended in the ER, and when there was no appreciable increase, she was discharged home. Pt. has a history of recent hemorrhoid surgery and she is still having severe pain from this, for which she takes dilaudid. Onset: Today Location: Reports: Generalized Associated Symptoms: Reports: Shortness of Breath, Weakness - Related Data Allergies Allergy/AdvReac Type Severity Reaction Status Date / Time cat dander Allergy Shortness Verified 10/25/20 23:42 of Breath pollen extracts AdvReac Cough Verified 12/21/20 23:42 Home Meds: Home Meds Cholecalciferol (Vitamin D3) [Vitamin D3] 4,000 unit PO DAILY 04/30/14 [History] Rosuvastatin [Crestor] 10 mg PO QPM 04/30/14 [History] Furosemide [Lasix] 20 mg PO DAILY 05/10/14 [History] Magnesium Chloride [Mag-64] 64 mg PO DAILY #30 tab.er 05/10/14 [Rx] Acetaminophen 650 mg PO Q4H PRN 11/03/15 [History] Metoprolol Tartrate 100 mg PO BID 11/03/15 [History] Digoxin [Lanoxin] 125 mcg PO DAILY #30 tablet 11/08/15 [Rx] Biotin 5 mg PO DAILY 10/30/18 [History] Calcium Carbonate/Vitamin D3 [Calcium 500 mg Chewable Tablet] 1 each PO TID 10/30/18 [History] Cyanocobalamin (Vitamin B-12) [B-12] 1,000 mcg PO DAILY 10/30/18 [History] Denosumab [Prolia] 60 mg SQ Q180D 10/30/18 [History] Melatonin 5 mg PO BEDTIME PRN 10/30/18 [History] Primidone [Mysoline] 50 mg PO TID 10/30/18 [History] Sennosides/Docusate Sodium [Senna Plus Tablet] 1 tab PO DAILY 10/30/18 [History] Warfarin [Coumadin] 2.5 mg PO DAILY 10/30/18 [History] Gabapentin [Neurontin] 200 mg PO BEDTIME 10/15/19 [History] Multivitamin [Daily Multiple Vitamin] 1 each PO DAILY 10/15/19 [History] Ascorbic Acid [Vitamin C] 250 mg PO Q48H 03/23/20 [History] ClonazePAM [KlonoPIN] 0.5 mg PO BEDTIME PRN 03/23/20 [History] Potassium Chloride 10 meq PO DAILY 03/23/20 [History] Acetaminophen [Tylenol Extra Strength] 1,000 mg PO TID tablet 08/20/20 [Rx] Cetirizine [ZyrTEC] 10 mg PO DAILY PRN #0 08/20/20 [Rx] Gabapentin [Neurontin] 200 mg PO BID #120 08/20/20 [Rx] Lactulose [Cephulac] 20 gm PO DAILY #30 cup 08/20/20 [Rx] Warfarin [Coumadin] 2.5 mg PO SUTUTHFRSA@2000 tablet 08/20/20 [Rx] Warfarin [Coumadin] 5 mg PO MOWE@1999 tablet 08/20/20 [Rx] oxyCODONE 5 mg PO Q6H PRN tablet 08/20/20 [Rx] polyethylene glycoL 3350 [MiraLAX] 17 gm PO DAILY packet 08/20/20 [Rx] dexAMETHasone [Dexamethasone] 6 mg PO DAILY 10 Days tablet 09/23/20 [Rx] Past Medical History HEENT History: Reports: None Cardiovascular History: Reports: Arrhythmia, Bacterial Endocarditis, CAD, Heart Failure, Heart Valve Replacement, High Cholesterol Genitourinary History: Reports: Acute Renal Failure Musculoskeletal History: Reports: Osteoporosis Psychiatric History: Reports: Anxiety Endocrine/Metabolic History: Reports: Osteoporosis, Vitamin D Deficiency, Other (See Below) Other Endocrine/Metabolic History: hyperglycemia Hematologic History: Reports: Other (See Below) Other Hematologic History: thrombocytopenia - Infectious Disease History Infectious Disease History: Reports: Novel Coronavirus - Past Surgical History HEENT Surgical History: Reports: None, Cataract Surgery Cardiovascular Surgical History: Reports: AICD, Valve Replacement GI Surgical History: Reports: Other (See Below) Other GI Surgeries/Procedures: hemorrhoidectomy Female Surgical History: Reports: Other (See Below) Other Female Surgeries/Procedures: COLPOSCOPY W/ ENDO CURETTE - MISCARRIAGE Social & Family History - Family History Other Cardiac Family History: sn-stents Oncologic: Reports: Breast - Caffeine Use Caffeine Use: Reports: None ED ROS GENERAL - Review of Systems Review Of Systems: See Below Constitutional: Reports: Malaise, Weakness, Fatigue HEENT: Reports: No Symptoms Respiratory: Reports: No Symptoms Cardiovascular: Reports: No Symptoms Endocrine: Reports: No Symptoms GI/Abdominal: Reports: Other (chronic rectal pain) : Reports: No Symptoms Musculoskeletal: Reports: No Symptoms Skin: Reports: No Symptoms Neurological: Reports: No Symptoms Psychiatric: Reports: No Symptoms Hematologic/Lymphatic: Reports: No Symptoms Immunologic: Reports: No Symptoms ED EXAM, GENERAL - Physical Exam Exam: See Below Exam Limited By: No Limitations General Appearance: Alert, WD/WN, No Apparent Distress Eye Exam: Bilateral Eye: EOMI, Normal Fundi, Normal Inspection, PERRL Nose: Normal Mucosa, No Blood Throat/Mouth: Normal Inspection, Normal Lips, Normal Teeth, Normal Gums, Normal Oropharynx, Normal Voice, No Airway Compromise Head: Atraumatic, Normocephalic Neck: Normal Inspection, Supple, Non-Tender, Full Range of Motion Respiratory/Chest: No Respiratory Distress, No Accessory Muscle Use, Chest Non- Tender, Crackles (mild crackles at bases) Cardiovascular: Irregularly Irregular Peripheral Pulses: 4+: Radial (R) GI/Abdominal: Soft, Non-Tender, No Distention, No Mass (Female) Exam: Deferred Rectal (Female) Exam: Deferred Back Exam: Normal Inspection, Full Range of Motion Extremities: Normal Inspection, Normal Range of Motion, Non-Tender, No Pedal Edema, Normal Capillary Refill Neurological: Alert, Oriented, CN II-XII Intact, Normal Cognition, Normal R eflexes, No Motor/Sensory Deficits Psychiatric: Normal Affect, Normal Mood, Anxious Skin Exam: Warm, Dry, Intact, Normal Color #1 Interpretation Rhythm: A-Fib Comparison: No Change Course - Vital Signs Last Recorded V/S: Last Vital Signs Temp 36.3 C 10/25/20 22:50 Pulse 89 10/25/20 22:50 Resp 24 H 10/25/20 22:50 BP 140/60 10/25/20 22:50 Pulse Ox 98 10/25/20 22:50 - Orders/Labs/Meds Orders: Active Orders 24 hr Category Date Time Status EKG Documentation Completion [RC] STAT Care 10/25/20 23:25 Active Chest 2V [CR] Stat Exams 10/25/20 23:25 Taken COMPREHENSIVE METABOLIC PN,CMP [CHEM] Stat Lab 10/25/20 23:57 Received CRP [C-REACTIVE PROTEIN] [CHEM] Stat Lab 10/25/20 23:57 Received CULTURE BLOOD [BC] Stat Lab 10/25/20 00:02 Received CULTURE BLOOD [BC] Stat Lab 10/25/20 23:57 Received DIGOXIN [CHEM] Stat Lab 10/26/20 00:02 Received MAGNESIUM [CHEM] Stat Lab 10/25/20 23:57 Received PRO B-TYPE NATRIUR PEPT,BNPPRO [CHEM] Stat Lab 10/25/20 23:57 Received PTT,PARTIAL THROMBOPLSTIN TIME [COAG] Stat Lab 10/25/20 23:57 Received TROPONIN I [CHEM] Stat Lab 10/25/20 23:57 Received UA RFX SHOAIB AND CULT IF INDIC [URIN] Stat Lab 10/26/20 00:06 Received Blood Culture x2 Reflex Set [OM.PC] Stat Oth 10/25/20 23:26 Ordered Labs: Laboratory Tests 10/25/20 10/25/20 10/25/20 Range/Units 23:57 23:57 23:57 WBC 3.8 L (4.0-10.0) x10^3/uL RBC 4.12 (4.00-5.50) x10^6/uL Hgb 11.1 L (12.0-16.0) g/dL Hct 34.8 (33.0-47.0) % MCV 84.5 D (78.0-93.0) fL MCH 26.9 (26.0-32.0) pg MCHC 31.9 L (32.0-36.0) g/dL RDW Coeff of Lashay 22.3 H (10.0-15.0) % Plt Count 109 L (130-400) x10^3/uL Neut % (Auto) 60.8 (50.0-80.0) % Lymph % (Auto) 27.1 (25.0-50.0) % Brown % (Auto) 8.4 (2.0-11.0) % Eos % (Auto) 3.4 (0.0-4.0) % Baso % (Auto) 0.3 (0.2-1.2) % PT 32.2 H (9.5-12.3) SEC INR 3.1 (2.0-3.5) D-Dimer, Quantitative 3.51 H (<=0.58) mg/LFEU Lactic Acid 1.0 (0.4-2.0) mmol/L - Radiology Interpretation Free Text/Narrative:: chest x-ray negative for acute pathology Departure - Departure Time of Disposition: 00:58 Disposition: Refer to Observation Clinical Impression: CHF exacerbation, Dilated cardiomyopathy, Elevated troponin - Discharge Information Referrals: Xuan Rendon DO [Primary Care Provider] - Forms: ED Department Discharge Sepsis Event Note (ED) - Evaluation Sepsis Screening Result: No Definite Risk - Focused Exam Vital Signs: Vital Signs Temp Pulse Resp BP Pulse Ox 10/25/20 22:50 36.3 C 89 24 H 140/60 98 - Problem List Review Problem List Initiated/Reviewed/Updated: Yes - My Orders Last 24 Hours: My Active Orders 10/25/20 00:02 CULTURE BLOOD [BC] Stat 10/25/20 23:25 EKG Documentation Completion [RC] STAT Chest 2V [CR] Stat 10/25/20 23:26 Blood Culture x2 Reflex Set [OM.PC] Stat 10/25/20 23:57 COMPREHENSIVE METABOLIC PN,CMP [CHEM] Stat CRP [C-REACTIVE PROTEIN] [CHEM] Stat CULTURE BLOOD [BC] Stat MAGNESIUM [CHEM] Stat PRO B-TYPE NATRIUR PEPT,BNPPRO [CHEM] Stat PTT,PARTIAL THROMBOPLSTIN TIME [COAG] Stat TROPONIN I [CHEM] Stat 10/26/20 00:02 DIGOXIN [CHEM] Stat 10/26/20 00:06 UA RFX SHOAIB AND CULT IF INDIC [URIN] Stat - Assessment/Plan Last 24 Hours: My Active Orders 10/25/20 00:02 CULTURE BLOOD [BC] Stat 10/25/20 23:25 EKG Documentation Completion [RC] STAT Chest 2V [CR] Stat 10/25/20 23:26 Blood Culture x2 Reflex Set [OM.PC] Stat 10/25/20 23:57 COMPREHENSIVE METABOLIC PN,CMP [CHEM] Stat CRP [C-REACTIVE PROTEIN] [CHEM] Stat CULTURE BLOOD [BC] Stat MAGNESIUM [CHEM] Stat PRO B-TYPE NATRIUR PEPT,BNPPRO [CHEM] Stat PTT,PARTIAL THROMBOPLSTIN TIME [COAG] Stat TROPONIN I [CHEM] Stat 10/26/20 00:02 DIGOXIN [CHEM] Stat 10/26/20 00:06 UA RFX SHOAIB AND CULT IF INDIC [URIN] Stat Plan: Pt. will be admitted observation. Again, her troponin and d dimer were elevated. They will be trended in 3 and 6 hours. To note, she is supratheraputic on her coumadin. Pt. chest x-ray is negative, but she does have some crackles in the bases and her proBNP is elevated so we will give her a dose of IV lasix. UA was negative. Dig, lactic acid were normal. Influenza and UA were negative. Anticipa te discharge home tomorrow. Pt. is a code 1.
[2020-10-26 00:49] LABS: ANION GAP 9.1 mmol/L (10-20)
[2020-10-26] MEDS ORDERED: Furosemide 40 MG/4 ML VIAL IV ONE (00:55)
[2020-10-26] MEDS ORDERED: Sodium Chloride 0.9% 10 ML Syringe FLUSH PRN (00:55)
[2020-10-26] MEDS ORDERED: LIDOCAINE TOP PRN (03:11)
[2020-10-26] MEDS ORDERED: NIFEDIPINE 0.2% TOP PRN (03:11)
[2020-10-26] MEDS ORDERED: Non-Formulary Medication 1 Each (Non-Formulary Medication [Nf Drug] 1 APPLIC) TOP SCH (03:15)
[2020-10-26] MEDS ORDERED: Loratadine 10 MG Tab PO PRN (03:38)
[2020-10-26] MEDS ORDERED: HYDROmorphone 2 MG Tab PO PRN (03:41)
[2020-10-26] MEDS ORDERED: Melatonin 3 MG Tab PO PRN (03:42)
[2020-10-26] MEDS ORDERED: Diltiazem 50 MG/10 ML SDV IVPUSH ONE ×2 (04:35→08:20)
[2020-10-26] MEDS ORDERED: Diltiazem IR 60 MG Tab PO SCH (07:15)
[2020-10-26 07:48] LABS: ANION GAP 11.5 mmol/L (10-20)
--- NOTE | 2020-10-26 07:49 | CR ---
[id number] RAD/RAD Chest PA And Lateral EXAM: RAD Chest PA And Lateral CLINICAL DATA: WEAKNESS COMPARISON: CORRELATION IS MADE WITH SEPTEMBER 23, 2020 FINDINGS: The lungs are clear but hyperaerated. The cardiomediastinal contour is enlarged but stable. IMPRESSION: COPD Mark Perea MD 10/26/20 0760 Thank you for allowing us to participate in the care of your patient.
[2020-10-26] MEDS: Acetaminophen 500 MG Tab PO SCH ×2 (07:52→11:59)
[2020-10-26] MEDS: Ascorbic Acid 500 MG Tab PO SCH ×2 (07:53→09:03)
[2020-10-26] MEDS: Primidone 50 MG Tab PO SCH ×2 (07:54→11:55)
[2020-10-26] MEDS: Calcium Carbonate/Vitamin D3 1250 MG-200 Unit Tab PO SCH ×2 (07:54→11:55)
[2020-10-26] MEDS ORDERED: Furosemide 40 MG Tab PO SCH (08:00)
[2020-10-26] MEDS ORDERED: Cholecalciferol (Vitamin D3) 25 MCG Tab PO SCH (08:00)
[2020-10-26] MEDS ORDERED: Multivitamins with Iron/Calcium/Folic Acid/Minerals Tab PO SCH (08:00)
[2020-10-26] MEDS ORDERED: Polyethylene Glycol 3350 Powder 17 GM Packet PO SCH (08:00)
[2020-10-26] MEDS ORDERED: Metoprolol Tartrate 50 MG Tab PO SCH (08:00)
[2020-10-26] MEDS ORDERED: Gabapentin 100 MG Cap PO SCH (08:00)
[2020-10-26] MEDS ORDERED: Digoxin 125 MCG Tab PO SCH (08:00)
[2020-10-26] MEDS ORDERED: Potassium Chloride 10 MEQ Tab.ER PO SCH (08:00)
[2020-10-26] MEDS ORDERED: Magnesium Chloride 64 MG Tab.ER PO SCH (08:00)
[2020-10-26] MEDS ORDERED: Cyanocobalamin (Vitamin B12) 1,000 MCG Tab PO SCH (08:00)
[2020-10-26] MEDS ORDERED: Digoxin 250 MCG Tab PO ONE (08:21)
[2020-10-26] MEDS ORDERED: Warfarin 2.5 MG Tab PO SCH (08:45)
[2020-10-26] MEDS: Diltiazem IR 60 MG Tab PO SCH ×3 (09:14→17:21)
[2020-10-26] MEDS: [UNRECOGNIZED DRUG - OTHER] TOP SCH ×2 (11:02→11:59)
[2020-10-26] MEDS ORDERED: Warfarin 2.5 MG Tab PO ONE (12:00)
[2020-10-26 14:53] VITALS: BP 124/49; PULSE 78
[2020-10-26] MEDS ORDERED: Acetaminophen 500 MG Tab PO PRN (16:46)
--- NOTE | 2020-10-26 18:57 | DISCH ---
PRIMARY DISCHARGE DIAGNOSES: 1. Weakness likely related to atrial fibrillation with rapid ventricular response and an acute diastolic heart failure exacerbation. Symptoms resolved. EF known to be 55% in 08/2020. 2. Mechanical mitral valve, on Coumadin. INR therapeutic at 3.1. 3. Recent coronavirus disease 19 infection, recovered. The patient had the BAM therapy last month. 4. Weight loss. The patient has had problems since her hemorrhoid surgery this fall. 5. Pancytopenia, being followed as an outpatient. It had improved, but now her white count was down to 2.8, hemoglobin 10.9, and platelets 106 with normal sedimentation rate. 6. History of iron deficiency anemia, replaced. 7. [id number] myocardial infarction due to atrial fibrillation with rapid ventricular response. The patient has nonocclusive coronary disease by previous angiograms. 8. History of ventricular fibrillation arrest, remotely. 9. Chronic kidney disease stage 2. 10.Rectal pain due to rectal surgery. The patient has been taking 4 mg 1 to 2 times a day of Dilaudid and Neurontin. She has been referred to the Pain Clinic. 11.Dyslipidemia. Recently taken off Crestor per Cardiology. 12.Pulmonary hypertension. It should be noted her platelets have been between 130,000 to 150,000 for the past 14 years. REASON FOR ADMISSION: On the date of admission, this 79-year-old who had actually been down to her cardiology visit in [place] on that same day was just trying to bring in groceries and things and just was so weak that she could not seem to do anything. They had actually made no changes to her regimen when she was there other than stopping the Crestor because they were concerned about weight loss and appetite, but did not feel it was probably from her heart failure. The patient does take like clonazepam and gabapentin and Dilaudid, which would all make her feel weak. Therefore, these medications were held and in fact she did not require any Dilaudid during her stay and was taking Tylenol for pain. Did request a Tylenol for a headache just prior to me rounding for discharge, but still wanted to go home. She states that headaches are not that unusual to her and she attributed to trying to concentrate when she was up walking with PT. The patient did have heart rates very fast up into the 140s and 150s and in fact got some IV diltiazem at 4 a.m. this morning. She still was fast while up in the bathroom at 7:30, 8 o'clock, but then after she got back to her bed, her heart rates came down to 80 and she was given her regular oral Cardizem which was started here. I gave her an additional dose of digoxin and heart rates were in the 80s to 100s throughout the rest of the day with 1 brief uptake to 120 while she was working with PT. She was denying any chest pain. She had no trouble breathing. She was not lightheaded or dizzy, but admitted she still felt weak. Her troponins which were elevated up to 0.219 trended down to 0.195. Her UA did not show an infection. Her digoxin level was mildly low at 0.85. Therefore, I gave her an extra 250 of oral digoxin. The patient has had previous B12 levels that were okay. She has been having iron levels checked. She has had previous thyroid levels checked. The patient has a known history of AFib. PHYSICAL EXAMINATION: Discharge Vitals: Include a temperature 97.8, pulse 78, blood pressure 124/49, respiratory rate 17, and O2 of 97% on room air with a weight of 45.3 kg. General: She is in no acute distress. Heart: Irregularly irregular. Positive valvular click. Lungs: Sounds were clear to auscultation bilaterally without crackles or wheezes. Abdomen: Has positive bowel sounds. Soft, nontender. Extremities: Warm and dry. No edema. Mental Status: Alert and oriented x3. Her speech was clear. Her pupils were equal, round, and reactive to light. DISCHARGE PLANS AND INSTRUCTIONS: She had an appointment in the clinic tomorrow, but due to the weather coming and the fact she was in the hospital she will reschedule until November. We will do lab work at that time, BMP, CBC, and dig level. I will actually place her back on Cardizem 120 mg daily for heart rate control. We will leave her digoxin the same, but consider increasing that dose if needed. She will try some Calmoseptine rectal ointment. She has various other rectal creams and ointments from her general surgery office as well and will have a followup with the Pain Clinic for rectal pain. She is due for her Dilaudid refill. She used 20 pills now since the of the month, using 1 to 2 a day for pain 4 mg dose. Therefore, I decreased her to 2 mg and she will use that over the next 2 weeks until her followup. The patient will get her INR at her next scheduled time. MKA: 10/26/2020 17:30:19 MODL: 10/26/2020 18:50:17 /[id number] MTDD
[2020-10-26] MEDS ORDERED: atorvaSTATin 40 MG Tab PO SCH (20:00)
[2020-10-26] MEDS ORDERED: Primidone 50 MG Tab PO SCH (20:00)
[2020-10-26] MEDS ORDERED: Gabapentin 300 MG Cap PO SCH (20:00)
[2020-10-27] MEDS ORDERED: Primidone 50 MG Tab PO SCH (08:00)
[2020-10-27] MEDS ORDERED: Warfarin 5 MG Tab PO SCH (08:00)
[2020-10-27] MEDS ORDERED: Furosemide 20 MG Tab PO SCH (08:00)
== END 2020-10-26 17:50 | disposition home or self-care (01) ==
LOC: VM.ED 22:50 → VM.MS 10-26 00:58
PROVIDERS: ADMIT Physician Assistant; ATTEND Physician Assistant
DX: D61.818 Other pancytopenia (principal); R63.4 Abnormal weight loss; N18.2 Chronic kidney disease, stage 2 (mild); E78.5 Hyperlipidemia, unspecified; I27.20 Pulmonary hypertension, unspecified; I21.4 Non-ST elevation (NSTEMI) myocardial infarction; I42.0 Dilated cardiomyopathy; I48.91 Unspecified atrial fibrillation; I50.32 Chronic diastolic (congestive) heart failure; Z95.2 Presence of prosthetic heart valve; Z91.048 Other nonmedicinal substance allergy status; Z79.899 Other long term (current) drug therapy; Z86.19 Personal history of other infectious and parasitic diseases; Z68.1 Body mass index [BMI] 19.9 or less, adult
CPT/HCPCS: 36415; 71046; 80048; 80053; 80162; 81001; 83605; 83735; 83880; 84484; 85025; 85379; 85610; 85652; 85730; 86140; 87040; 87804; 87804-59; 93005; 96374; 96375; 97161-GP; 99220; 99285-25; A9270-GY; G0378; J1940; J3490

== ENCOUNTER 2021-04-03 07:10 | Emergency (ER) | payer MEDICARE, OTHER ==
[2021-04-03] MEDS ORDERED: Ketorolac 30 MG/ML SDV IM ONE (07:17)
[2021-04-03 07:19] VITALS: BP 157/63; PULSE 77
--- NOTE | 2021-04-03 07:21 | EDM.PDOC ---
ED HPI GENERAL MEDICAL PROBLEM - General Stated Complaint: LEFT WRIST Time Seen by Provider: 04/03/21 07:15 Source of Information: Reports: Patient - History of Present Illness INITIAL COMMENTS - FREE TEXT/NARRATIVE: Angelika is a 80 y/o female who presents with left wrist pain. She got out of bed and lost her balance and fell onto the floor and caught herself with her left hand. Her left wrist is now painful and slightly swollen. Left Wrist Pain Score (Numeric/FACES): 5 - Related Data Allergies Allergy/AdvReac Type Severity Reaction Status Date / Time cat dander Allergy Shortness Verified 04/03/21 07:21 of Breath pollen extracts AdvReac Cough Verified 04/03/21 07:21 Home Meds: Home Meds Cholecalciferol (Vitamin D3) [Vitamin D3] 4,000 unit PO DAILY 04/30/14 [History] Furosemide [Lasix] 20 mg PO DAILY 05/10/14 [History] Magnesium Chloride [Mag-64] 64 mg PO DAILY #30 tab.er 05/10/14 [Rx] Metoprolol Tartrate 100 mg PO BID 11/03/15 [History] Digoxin [Lanoxin] 125 mcg PO DAILY #30 tablet 11/08/15 [Rx] Biotin 5 mg PO DAILY 10/30/18 [History] Cyanocobalamin (Vitamin B-12) [B-12] 1,000 mcg PO DAILY 10/30/18 [History] Denosumab [Prolia] 60 mg SQ Q180D 10/30/18 [History] Melatonin 5 mg PO BEDTIME PRN 10/30/18 [History] Sennosides/Docusate Sodium [Senna Plus Tablet] 1 tab PO DAILY 10/30/18 [History] Gabapentin [Neurontin] 300 mg PO BEDTIME 10/15/19 [History] Multivitamin [Daily Multiple Vitamin] 1 tab PO DAILY 10/15/19 [History] Ascorbic Acid [Vitamin C] 250 mg PO Q48H 03/23/20 [History] ClonazePAM [KlonoPIN] 0.5 mg PO BEDTIME PRN 03/23/20 [History] Potassium Chloride 10 meq PO DAILY 03/23/20 [History] Acetaminophen [Tylenol Extra Strength] 1,000 mg PO TID tablet 08/20/20 [Rx] Cetirizine [ZyrTEC] 10 mg PO DAILY PRN #0 08/20/20 [Rx] polyethylene glycoL 3350 [MiraLAX] 17 gm PO DAILY packet 08/20/20 [Rx] Calcium Carbonate [Calcium] 500 mg PO TID 10/26/20 [History] Calcium Carbonate/Vitamin D3 [Calcium Carbonate/Vitamin D 1250 MG - 5 MCG] 1 tab PO TID tablet 10/26/20 [Rx] Gabapentin [Neurontin] 200 mg PO DAILY 10/26/20 [History] HYDROmorphone HCl [Hydromorphone HCl] 2 mg PO DAILY PRN #10 10/26/20 [Rx] Lidocaine [LMX 5] 1 gm RECTAL TID PRN 10/26/20 [History] Lidocaine [Tranzarel] 1 applic TOP Q2H PRN 10/26/20 [History] Non-Formulary Medication [NF Drug] 1 applic TOP ASDIRECTED PRN 10/26/20 [History] Non-Formulary Medication [NF Drug] 1 applic TOP TID 10/26/20 [History] Primidone 50 mg PO DAILY 10/26/20 [History] Primidone [Mysoline] 25 mg PO BID@1500,199910/26/20 [History] Warfarin [Coumadin] 5 mg PO SUMOTUWETHSA@199910/26/20 [History] Warfarin [Coumadin] 7.5 mg PO FR@199910/26/20 [History] atorvaSTATin [Lipitor] 40 mg PO QPM tablet 10/26/20 [Rx] Past Medical History HEENT History: Reports: None Cardiovascular History: Reports: Arrhythmia, Bacterial Endocarditis, CAD, Heart Failure, Heart Valve Replacement, High Cholesterol Genitourinary History: Reports: Acute Renal Failure Musculoskeletal History: Reports: Osteoporosis Psychiatric History: Reports: Anxiety Endocrine/Metabolic History: Reports: Osteoporosis, Vitamin D Deficiency, Other (See Below) Other Endocrine/Metabolic History: hyperglycemia Hematologic History: Reports: Other (See Below) Other Hematologic History: thrombocytopenia - Infectious Disease History Infectious Disease History: Reports: Novel Coronavirus - Past Surgical History HEENT Surgical History: Reports: None, Cataract Surgery Cardiovascular Surgical History: Reports: AICD, Valve Replacement GI Surgical History: Reports: Other (See Below) Other GI Surgeries/Procedures: hemorrhoidectomy Female Surgical History: Reports: Other (See Below) Other Female Surgeries/Procedures: COLPOSCOPY W/ ENDO CURETTE - MISCARRIAGE Social & Family History - Family History Other Cardiac Family History: sn-stents Oncologic: Reports: Breast - Caffeine Use Caffeine Use: Reports: None Review of Systems - Review of Systems Review Of Systems: See Below Constitutional: Reports: No Symptoms Eyes: Reports: No Symptoms Ears: Reports: No Symptoms Nose: Reports: No Symptoms Mouth/Throat: Reports: No Symptoms Respiratory: Reports: No Symptoms Cardiovascular: Reports: No Symptoms GI/Abdominal: Reports: No Symptoms Genitourinary: Reports: No Symptoms Musculoskeletal: Reports: Joint Pain (left wrist) Skin: Reports: No Symptoms Neurological: Reports: No Symptoms Psychiatric: Reports: No Symptoms ED EXAM, GENERAL - Physical Exam Exam: See Below Exam Limited By: No Limitations General Appearance: Alert, WD/WN, No Apparent Distress (Frail, elderly female.) Head: Atraumatic, Normocephalic Neck: Normal Inspection Respiratory/Chest: No Respiratory Distress, Lungs Clear Cardiovascular: Normal Peripheral Pulses, Regular Rate, Rhythm GI/Abdominal: Soft (Female) Exam: Deferred Rectal (Female) Exam: Deferred Back Exam: Normal Inspection Extremities: Other (Left wrist is slightly swollen adn wrist mildly bruised. CMS normal to left upper extremity.) Course - Vital Signs Text/Narrative:: 0715 The patient was seen by the [facility]. Xray was ordered. She was given Toradol 30mg IM for pain. 0800 Xray reviewed, note left distal radius fx, nondisplaced. Orthoglass forearm splint applied. Sling given. Patient reported decreased pain from the injection and splinting. 0820 Patient was given discharge instructions and left left the ER in stable condition. Last Recorded V/S: Last Vital Signs Temp 35.8 C L 04/03/21 07:10 Pulse 77 04/03/21 07:10 Resp 20 04/03/21 07:10 BP 157/63 H 04/03/21 07:10 Pulse Ox 100 04/03/21 07:10 - Orders/Labs/Meds Orders: Active Orders 24 hr Category Date Time Status Wrist Comp Min 3V Lt [CR] Stat Exams 04/03/21 07:18 Taken Meds: Medications Discontinued Medications Generic Name Dose Route Start Last Admin Trade Name Freq PRN Reason Stop Dose Admin Hydrocodone Bitart/Acetaminophen 2 packet 04/03/21 07:40 Take Home: Acetaminophen/Hydrocodone 325-5 Mg, 5 Tab Pack PO 04/03/21 07:41 ONETIME ONE Ketorolac Tromethamine 30 mg 04/03/21 07:17 04/03/21 07:27 Ketorolac 30 Mg/Ml Sdv IM 04/03/21 07:18 30 mg ONETIME ONE Administration - Radiology Interpretation Free Text/Narrative:: XR L Wrist 3V=note nondisplaced fracture of the distal radius, widespread arthritis noted (See final report) Departure - Departure Time of Disposition: 08:20 Disposition: Home, Self-Care 01 Condition: Good Clinical Impression: Fracture of radius Qualifiers: Encounter type: initial encounter Radius location: distal Fracture type: closed Fracture morphology: unspecified fracture morphology Laterality: left Qualified Code(s): S52.502A - Unspecified fracture of the lower end of left radius, initial encounter for closed fracture Fall Qualifiers: Encounter type: initial encounter Qualified Code(s): W19.XXXA - Unspecified fall, initial encounter - Discharge Information *PRESCRIPTION DRUG MONITORING PROGRAM REVIEWED*: No *COPY OF PRESCRIPTION DRUG MONITORING REPORT IN PATIENT FITZ: No Instructions: Fall Prevention in the Home, Adult, [id number], Radial Fracture Referrals: Xuan Rendon DO [Primary Care Provider] - Sepsis Event Note (ED) - Focused Exam Vital Signs: Vital Signs Temp Pulse Resp BP Pulse Ox 04/03/21 07:10 35.8 C L 77 20 157/63 H 100 - My Orders Last 24 Hours: My Active Orders 04/03/21 07:18 Wrist Comp Min 3V Lt [CR] Stat - Assessment/Plan Last 24 Hours: My Active Orders 04/03/21 07:18 Wrist Comp Min 3V Lt [CR] Stat Assessment:: 1)Left Distal Radius Fx, Nondisplaced 2)Fall Plan: -Ibuprofen 400mg oral every 6 hours as needed (Use over the counter meds) -Hydrocodone/APAP 5/325mg 1-2 tablets every 4-6 hours as needed for pain #10 (ER) -You may use the Hydromorphone that you have at home as needed for pain -Apply ice as able -Keep the affected extremity elevated as much as possible -Use an arm sling if needed when you are up and walking -Call to make an appt to your Primary Care Provider for recheck early next week. Dr Xuan Rendon will refer you to Ortho if needed or determine if he can manage the fracture. -Return to the ER as needed for any concerns
[2021-04-03] MEDS ORDERED: Take Home: Acetaminophen/HYDROcodone 325-5 MG, 5 Tab Pack PO ONE (07:40)
--- NOTE | 2021-04-03 08:26 | CR ---
[id number] RAD/RAD Wrist Left 3V Min EXAM: RAD Wrist Left 3V Min CLINICAL DATA: TRAUMA COMPARISON: No previous similar exam is available. FINDINGS: A dorsal radial fracture is seen in the lateral projection This is not significantly displaced. IMPRESSION: SUBTLE DORSAL DISTAL LEFT RADIAL FRACTURE Mark Perea MD 04/03/21 [id number] Thank you for allowing us to participate in the care of your patient.
== END 2021-04-03 08:31 | disposition home or self-care (01) ==
LOC: VM.ED 07:10
DX: S52.592A Other fractures of lower end of left radius, initial encounter for closed fracture (principal); I25.10 Atherosclerotic heart disease of native coronary artery without angina pectoris; E78.00 Pure hypercholesterolemia, unspecified; I50.9 Heart failure, unspecified; Z79.01 Long term (current) use of anticoagulants; Z79.899 Other long term (current) drug therapy; Z91.048 Other nonmedicinal substance allergy status; Z86.16 Personal history of COVID-19; W18.39XA Other fall on same level, initial encounter; W23.0XXA Caught, crushed, jammed, or pinched between moving objects, initial encounter
CPT/HCPCS: 29125; 73110-LT; 96372; 99283; 99283-25; A9270-GY; J1885

== ENCOUNTER 2021-04-16 14:20 | Emergency (ER) | payer MEDICARE, OTHER ==
[2021-04-16 14:32] VITALS: BP 127/61; PULSE 69
== END 2021-04-16 16:43 | disposition home or self-care (01) ==
LOC: VM.ED 14:20
DX: S20.211A Contusion of right front wall of thorax, initial encounter (principal); R53.1 Weakness; I25.10 Atherosclerotic heart disease of native coronary artery without angina pectoris; E78.00 Pure hypercholesterolemia, unspecified; I50.9 Heart failure, unspecified; Z86.16 Personal history of COVID-19; Z79.01 Long term (current) use of anticoagulants; Z79.899 Other long term (current) drug therapy; Z91.048 Other nonmedicinal substance allergy status; W18.09XA Striking against other object with subsequent fall, initial encounter
CPT/HCPCS: 29125; 71250; 99283; 99283-25

== ENCOUNTER 2021-11-28 20:14 | Inpatient (IN) | payer MEDICARE, OTHER ==
[2021-11-28] MEDS ORDERED: Sodium Chloride 0.9% 10 ML Syringe FLUSH PRN (20:52)
[2021-11-28] MEDS ORDERED: Diltiazem 50 MG/10 ML SDV IVPUSH ONE (20:57)
[2021-11-28] MEDS ORDERED: Sodium Chloride 0.9% 1,000 ML IV SCH ×2 (21:00→23:15)
[2021-11-28 21:39] LABS: PTT,PARTIAL THROMBOPLSTIN TIME 39.9 SEC (25.6-32.8)
[2021-11-28 21:54] LABS: CORONAVIRUS COVID-19 NAA NEGATIVE (NEGATIVE); RESPIRATORY SYNCYTIAL VIR NAA NEGATIVE (NEGATIVE)
[2021-11-28 21:54] LABS: CHLORIDE,CL 106 mmol/L (98-107); SODIUM,NA 145 mmol/L (136-145)
[2021-11-28 21:55] LABS: ANION GAP 15.1 mmol/L (5-15)
[2021-11-28] MEDS ORDERED: cefTRIAXone 1 GM Vial IVPUSH ONE (22:54)
[2021-11-28] MEDS ORDERED: Azithromycin 250 MG Tab PO ONE (22:55)
[2021-11-29] MEDS ORDERED: Loratadine 10 MG Tab PO PRN (08:16)
[2021-11-29] MEDS: Metoprolol Tartrate 50 MG Tab PO SCH ×2 (09:13→19:56)
[2021-11-29] MEDS: Digoxin 125 MCG Tab PO SCH (09:13)
[2021-11-29] MEDS: Acetaminophen 325 MG Tab PO PRN ×3 (10:39→20:21)
[2021-11-29] MEDS: Calcium Carbonate/Vitamin D3 1250 MG-5 MCG Tab PO SCH ×2 (12:13→19:56)
[2021-11-29] MEDS ORDERED: oxyCODONE 5 MG Tab PO STA (17:56)
[2021-11-29] MEDS ORDERED: Warfarin 5 MG Tab PO SCH (20:00)
[2021-11-29] MEDS: Melatonin 3 MG Tab PO PRN (20:22)
[2021-11-29] MEDS: Azithromycin 250 MG Tab PO SCH (21:33)
[2021-11-29] MEDS: cefTRIAXone 1 GM Vial IVPUSH SCH (21:35)
[2021-11-30] MEDS: Acetaminophen 325 MG Tab PO PRN ×2 (02:16→15:30)
[2021-11-30 07:13] LABS: CHLORIDE,CL 106 mmol/L (98-107); SODIUM,NA 140 mmol/L (136-145)
[2021-11-30 07:15] LABS: ANION GAP 10.5 mmol/L (5-15)
[2021-11-30] MEDS: Metoprolol Tartrate 50 MG Tab PO SCH ×3 (08:26→20:31)
[2021-11-30] MEDS: Magnesium Chloride 64 MG Tab.ER PO SCH (08:26)
[2021-11-30] MEDS: Digoxin 125 MCG Tab PO SCH (08:26)
[2021-11-30] MEDS: Azithromycin 250 MG Tab PO SCH (08:26)
[2021-11-30] MEDS: DULoxetine 30 MG Cap PO SCH (08:27)
[2021-11-30] MEDS: Polyethylene Glycol 3350 Powder 17 GM Packet PO SCH (08:27)
[2021-11-30] MEDS: Cyanocobalamin (Vitamin B12) 1,000 MCG Tab PO SCH (08:27)
[2021-11-30] MEDS: Calcium Carbonate/Vitamin D3 1250 MG-5 MCG Tab PO SCH ×3 (08:27→20:31)
[2021-11-30] MEDS: cefTRIAXone 1 GM Vial IVPUSH SCH (08:27)
[2021-11-30] MEDS ORDERED: Ondansetron 4 MG Tab.DIS PO PRN (14:26)
[2021-11-30] MEDS: Lactobacillus Rhamnosus GG (Probiotic) Cap PO SCH ×2 (14:56→20:31)
[2021-12-01] MEDS: Acetaminophen 325 MG Tab PO PRN ×2 (02:57→19:52)
[2021-12-01 07:12] LABS: CHLORIDE,CL 101 mmol/L (98-107); SODIUM,NA 136 mmol/L (136-145)
[2021-12-01 07:19] LABS: ANION GAP 14.7 mmol/L (5-15)
[2021-12-01] MEDS ORDERED: Flumazenil 0.1 MG/ML 5 ML MDV IVPUSH PRN (08:22)
[2021-12-01] MEDS ORDERED: Diltiazem 50 MG/10 ML SDV IVPUSH ONE ×2 (08:22→14:18)
[2021-12-01] MEDS ORDERED: LORazepam 2 MG/ML SDV IVPUSH PRN (08:22)
[2021-12-01] MEDS ORDERED: LORazepam 0.5 MG Tab PO PRN (08:22)
[2021-12-01] MEDS: Magnesium Chloride 64 MG Tab.ER PO SCH (09:14)
[2021-12-01] MEDS: Azithromycin 250 MG Tab PO SCH (09:14)
[2021-12-01] MEDS: Digoxin 125 MCG Tab PO SCH (09:14)
[2021-12-01] MEDS: Calcium Carbonate/Vitamin D3 1250 MG-5 MCG Tab PO SCH ×3 (09:14→19:53)
[2021-12-01] MEDS: DULoxetine 30 MG Cap PO SCH (09:15)
[2021-12-01] MEDS: Lactobacillus Rhamnosus GG (Probiotic) Cap PO SCH ×2 (09:15→19:52)
[2021-12-01] MEDS: Polyethylene Glycol 3350 Powder 17 GM Packet PO SCH (09:15)
[2021-12-01] MEDS: Metoprolol Tartrate 50 MG Tab PO SCH ×3 (09:16→19:56)
[2021-12-01] MEDS: Cyanocobalamin (Vitamin B12) 1,000 MCG Tab PO SCH (09:16)
[2021-12-01] MEDS: cefTRIAXone 1 GM Vial IVPUSH SCH (09:18)
[2021-12-01] MEDS: Furosemide 40 MG Tab PO SCH (10:31)
[2021-12-01] MEDS: QUEtiapine 25 MG Tab PO SCH ×2 (12:21→19:53)
[2021-12-01] MEDS ORDERED: Metoprolol Tartrate 50 MG Tab PO SCH (14:30)
[2021-12-01] MEDS: Diltiazem IR 60 MG Tab PO SCH (16:29)
[2021-12-01] MEDS: Melatonin 3 MG Tab PO PRN (19:52)
[2021-12-02] MEDS: Diltiazem IR 60 MG Tab PO SCH ×4 (00:39→23:41)
[2021-12-02] MEDS: Metoprolol Tartrate 50 MG Tab PO SCH ×3 (03:54→20:00)
[2021-12-02 07:32] LABS: CHLORIDE,CL 100 mmol/L (98-107); SODIUM,NA 135 mmol/L (136-145)
[2021-12-02 07:33] LABS: ANION GAP 11.6 mmol/L (5-15)
[2021-12-02] MEDS: Polyethylene Glycol 3350 Powder 17 GM Packet PO SCH (07:49)
[2021-12-02] MEDS: Azithromycin 250 MG Tab PO SCH (07:50)
[2021-12-02] MEDS: Calcium Carbonate/Vitamin D3 1250 MG-5 MCG Tab PO SCH ×3 (07:50→20:00)
[2021-12-02] MEDS: Digoxin 125 MCG Tab PO SCH (07:50)
[2021-12-02] MEDS: DULoxetine 30 MG Cap PO SCH (07:51)
[2021-12-02] MEDS: Magnesium Chloride 64 MG Tab.ER PO SCH (07:51)
[2021-12-02] MEDS: Furosemide 40 MG Tab PO SCH (07:51)
[2021-12-02] MEDS: Lactobacillus Rhamnosus GG (Probiotic) Cap PO SCH ×2 (07:51→20:00)
[2021-12-02] MEDS: QUEtiapine 25 MG Tab PO SCH ×2 (07:52→20:00)
[2021-12-02] MEDS: Cyanocobalamin (Vitamin B12) 1,000 MCG Tab PO SCH (07:52)
[2021-12-02] MEDS: Cefuroxime 250 MG Tab PO SCH ×2 (07:52→20:00)
[2021-12-02] MEDS ORDERED: Warfarin 2.5 MG Tab PO ONE (13:00)
[2021-12-02] MEDS: Melatonin 3 MG Tab PO PRN (20:00)
[2021-12-02] MEDS: Acetaminophen 325 MG Tab PO PRN (20:04)
[2021-12-03] MEDS: Metoprolol Tartrate 50 MG Tab PO SCH ×3 (04:28→19:42)
[2021-12-03] MEDS: DULoxetine 30 MG Cap PO SCH (07:24)
[2021-12-03] MEDS: Lactobacillus Rhamnosus GG (Probiotic) Cap PO SCH ×2 (07:24→19:42)
[2021-12-03] MEDS: Cefuroxime 250 MG Tab PO SCH ×2 (07:24→19:42)
[2021-12-03] MEDS: Azithromycin 250 MG Tab PO SCH (07:24)
[2021-12-03] MEDS: QUEtiapine 25 MG Tab PO SCH ×2 (07:24→19:42)
[2021-12-03] MEDS: Magnesium Chloride 64 MG Tab.ER PO SCH (07:25)
[2021-12-03] MEDS: Cyanocobalamin (Vitamin B12) 1,000 MCG Tab PO SCH (07:25)
[2021-12-03] MEDS: Polyethylene Glycol 3350 Powder 17 GM Packet PO SCH (07:25)
[2021-12-03] MEDS: Diltiazem IR 60 MG Tab PO SCH ×2 (07:25→15:24)
[2021-12-03] MEDS: Digoxin 125 MCG Tab PO SCH (07:25)
[2021-12-03] MEDS: Furosemide 40 MG Tab PO SCH (07:25)
[2021-12-03] MEDS: Calcium Carbonate/Vitamin D3 1250 MG-5 MCG Tab PO SCH ×3 (07:25→19:42)
[2021-12-03 08:29] LABS: CHLORIDE,CL 104 mmol/L (98-107); SODIUM,NA 141 mmol/L (136-145)
[2021-12-03 08:33] LABS: ANION GAP 12.8 mmol/L (5-15)
[2021-12-03] MEDS ORDERED: Simethicone 80 MG Tab.Chew PO PRN (09:55)
[2021-12-03] MEDS ORDERED: Warfarin 5 MG Tab PO ONE (13:00)
[2021-12-03] MEDS: Acetaminophen 325 MG Tab PO PRN (19:41)
[2021-12-03] MEDS: Melatonin 3 MG Tab PO PRN (19:42)
[2021-12-03] MEDS ORDERED: Enoxaparin 60 MG/0.6 ML Syringe SUBCUT ONE (20:30)
[2021-12-04] MEDS: Diltiazem IR 60 MG Tab PO SCH ×3 (00:54→16:21)
[2021-12-04] MEDS: Metoprolol Tartrate 50 MG Tab PO SCH ×3 (03:29→19:47)
[2021-12-04] MEDS: DULoxetine 30 MG Cap PO SCH (07:27)
[2021-12-04] MEDS: Calcium Carbonate/Vitamin D3 1250 MG-5 MCG Tab PO SCH ×3 (07:27→19:50)
[2021-12-04] MEDS: Magnesium Chloride 64 MG Tab.ER PO SCH (07:27)
[2021-12-04] MEDS: Lactobacillus Rhamnosus GG (Probiotic) Cap PO SCH ×2 (07:27→19:49)
[2021-12-04] MEDS: Cefuroxime 250 MG Tab PO SCH ×2 (07:28→19:50)
[2021-12-04] MEDS: Furosemide 40 MG Tab PO SCH (07:28)
[2021-12-04] MEDS: Digoxin 125 MCG Tab PO SCH (07:28)
[2021-12-04] MEDS: QUEtiapine 25 MG Tab PO SCH ×2 (07:29→19:49)
[2021-12-04] MEDS: Azithromycin 250 MG Tab PO SCH (07:29)
[2021-12-04] MEDS: Cyanocobalamin (Vitamin B12) 1,000 MCG Tab PO SCH (07:29)
[2021-12-04] MEDS: Enoxaparin 60 MG/0.6 ML Syringe SUBCUT SCH ×2 (07:32→19:47)
[2021-12-04] MEDS: Polyethylene Glycol 3350 Powder 17 GM Packet PO SCH (07:33)
[2021-12-04] MEDS ORDERED: Warfarin 5 MG Tab PO ONE (10:00)
[2021-12-04] MEDS: Melatonin 3 MG Tab PO PRN (19:49)
[2021-12-05] MEDS: Diltiazem IR 60 MG Tab PO SCH ×3 (00:16→15:10)
[2021-12-05] MEDS: Metoprolol Tartrate 50 MG Tab PO SCH ×2 (03:59→11:26)
[2021-12-05] MEDS: Magnesium Chloride 64 MG Tab.ER PO SCH (07:19)
[2021-12-05] MEDS: Lactobacillus Rhamnosus GG (Probiotic) Cap PO SCH (07:19)
[2021-12-05] MEDS: QUEtiapine 25 MG Tab PO SCH (07:20)
[2021-12-05] MEDS: Calcium Carbonate/Vitamin D3 1250 MG-5 MCG Tab PO SCH ×2 (07:20→11:26)
[2021-12-05] MEDS: Digoxin 125 MCG Tab PO SCH (07:20)
[2021-12-05] MEDS: Cyanocobalamin (Vitamin B12) 1,000 MCG Tab PO SCH (07:20)
[2021-12-05] MEDS: DULoxetine 30 MG Cap PO SCH (07:20)
[2021-12-05] MEDS: Furosemide 40 MG Tab PO SCH (07:21)
[2021-12-05] MEDS: Enoxaparin 60 MG/0.6 ML Syringe SUBCUT SCH (07:22)
[2021-12-05] MEDS: Polyethylene Glycol 3350 Powder 17 GM Packet PO SCH (07:22)
[2021-12-05] MEDS ORDERED: Warfarin 5 MG Tab PO ONE (08:01)
[2021-12-05 10:55] VITALS: BP 139/70
[2021-12-05 11:29] VITALS: PULSE 124
[2021-12-05] MEDS ORDERED: QUEtiapine 25 MG Tab PO SCH (20:00)
== END 2021-12-05 15:15 | disposition home or self-care (01) | DRG 871 ==
LOC: VM.ED 20:14 → VM.MS 22:42
PROVIDERS: ADMIT Internal Medicine; ATTEND Internal Medicine
DX: A41.9 Sepsis, unspecified organism (principal); J18.9 Pneumonia, unspecified organism; I21.A1 Myocardial infarction type 2; I21.4 Non-ST elevation (NSTEMI) myocardial infarction; D61.818 Other pancytopenia; I50.9 Heart failure, unspecified; I50.32 Chronic diastolic (congestive) heart failure; I42.0 Dilated cardiomyopathy; I48.91 Unspecified atrial fibrillation; M25.511 Pain in right shoulder; G47.00 Insomnia, unspecified; N18.2 Chronic kidney disease, stage 2 (mild); Z20.822 Contact with and (suspected) exposure to COVID-19; E78.1 Pure hyperglyceridemia; E55.9 Vitamin D deficiency, unspecified; D69.6 Thrombocytopenia, unspecified; M81.0 Age-related osteoporosis without current pathological fracture; F43.20 Adjustment disorder, unspecified; I25.10 Atherosclerotic heart disease of native coronary artery without angina pectoris; E78.00 Pure hypercholesterolemia, unspecified; Z79.01 Long term (current) use of anticoagulants; Z95.2 Presence of prosthetic heart valve; Z91.09 Other allergy status, other than to drugs and biological substances; Z79.899 Other long term (current) drug therapy; Z86.16 Personal history of COVID-19; Z91.048 Other nonmedicinal substance allergy status
CPT/HCPCS: 0241U; 36415; 70450; 71045; 71046; 72170; 73030; 80048; 80053; 80162; 81001; 82140; 82550; 82947; 83605; 83735; 83880; 84100; 84443; 84484; 85025; 85027; 85610; 85730; 86140; 87040; 92610; 93005; 93010; 96374; 97110; 97116; 97129; 97162; 97165; 97530; 97535; 99284; 99285; A9270-GY; J0696; J1650; J2060; J3490; J7030; U0002

== ENCOUNTER 2022-09-21 11:27 | Observation (INO) | payer MEDICARE, OTHER ==
[2022-09-21 12:19] LABS: ANION GAP 10.1 mmol/L (5-15); CHLORIDE,CL 99 mmol/L (98-107); ESTIMATED GFR 65 mL/min (>=60); SODIUM,NA 137 mmol/L (136-145)
[2022-09-21] MEDS ORDERED: Nitroglycerin 0.4 MG Tab.SL SL ONE (12:57)
[2022-09-21] MEDS ORDERED: Ondansetron 4 MG Tab.DIS PO PRN (13:26)
[2022-09-21] MEDS ORDERED: ClonazePAM 0.5 MG Tab PO PRN ×2 (13:30→13:37)
[2022-09-21] MEDS ORDERED: Simethicone 80 MG Tab.Chew PO PRN (13:30)
[2022-09-21] MEDS ORDERED: Loratadine 10 MG Tab PO PRN (13:55)
[2022-09-21] MEDS: Acetaminophen 325 MG Tab PO PRN ×2 (14:09→19:42)
[2022-09-21] MEDS: Isosorbide Mononitrate 30 MG Tab.ER PO SCH (14:16)
[2022-09-21] MEDS: Diltiazem IR 60 MG Tab PO SCH (17:52)
[2022-09-21] MEDS: Metoprolol Succinate 50 MG Tab.ER PO SCH (19:59)
[2022-09-21] MEDS: Lactobacillus Rhamnosus GG (Probiotic) Cap PO SCH (19:59)
[2022-09-21] MEDS: Gabapentin 300 MG Cap PO SCH (19:59)
[2022-09-21] MEDS: Warfarin 5 MG Tab PO SCH (19:59)
[2022-09-21] MEDS: Calcium Carbonate/Vitamin D3 1250 MG-5 MCG Tab PO SCH (19:59)
[2022-09-21] MEDS: Primidone 50 MG Tab PO SCH (20:00)
[2022-09-21] MEDS: QUEtiapine 25 MG Tab PO SCH (20:01)
[2022-09-21] MEDS: Melatonin 3 MG Tab PO PRN (20:04)
[2022-09-22] MEDS: Diltiazem IR 60 MG Tab PO SCH ×3 (00:43→17:33)
[2022-09-22 07:25] LABS: ANION GAP 9.2 mmol/L (5-15)
[2022-09-22] MEDS: Polyethylene Glycol 3350 Powder 17 GM Packet PO SCH (08:13)
[2022-09-22] MEDS: Metoprolol Succinate 50 MG Tab.ER PO SCH ×2 (08:14→20:16)
[2022-09-22] MEDS: Magnesium Chloride 64 MG Tab.ER PO SCH (08:15)
[2022-09-22] MEDS: Multivitamin Tab PO SCH (08:15)
[2022-09-22] MEDS: Ascorbic Acid 500 MG Tab PO SCH (08:15)
[2022-09-22] MEDS: Lactobacillus Rhamnosus GG (Probiotic) Cap PO SCH ×2 (08:17→20:16)
[2022-09-22] MEDS: Cholecalciferol (Vitamin D3) 25 MCG Tab PO SCH (08:17)
[2022-09-22] MEDS: Isosorbide Mononitrate 30 MG Tab.ER PO SCH (08:18)
[2022-09-22] MEDS: Primidone 50 MG Tab PO SCH ×3 (08:18→20:16)
[2022-09-22] MEDS: Digoxin 125 MCG Tab PO SCH (08:18)
[2022-09-22] MEDS: Furosemide 20 MG Tab PO SCH (08:18)
[2022-09-22] MEDS: Acetaminophen 325 MG Tab PO PRN ×3 (08:19→20:17)
[2022-09-22] MEDS: DULoxetine 30 MG Cap PO SCH (08:19)
[2022-09-22] MEDS: Calcium Carbonate/Vitamin D3 1250 MG-5 MCG Tab PO SCH ×3 (08:19→20:16)
[2022-09-22] MEDS: Cyanocobalamin (Vitamin B12) 1,000 MCG Tab PO SCH (08:20)
[2022-09-22] MEDS ORDERED: oxyCODONE 5 MG Tab PO ONE (11:27)
[2022-09-22] MEDS: Lidocaine 4% 1 each Patch TOP SCH (12:07)
[2022-09-22] MEDS ORDERED: Ropivacaine 0.2% PF 2 MG/ML 20 ML SDV ONE (15:27)
[2022-09-22] MEDS: Melatonin 3 MG Tab PO PRN (20:16)
[2022-09-22] MEDS: Warfarin 5 MG Tab PO SCH (20:16)
[2022-09-22] MEDS: QUEtiapine 25 MG Tab PO SCH (20:16)
[2022-09-22] MEDS: Gabapentin 300 MG Cap PO SCH (20:16)
[2022-09-23] MEDS: Diltiazem IR 60 MG Tab PO SCH ×2 (00:28→08:06)
[2022-09-23] MEDS: Acetaminophen 325 MG Tab PO PRN (06:06)
[2022-09-23 08:01] VITALS: BP 139/72; PULSE 82
[2022-09-23] MEDS: Isosorbide Mononitrate 30 MG Tab.ER PO SCH (08:04)
[2022-09-23] MEDS: Polyethylene Glycol 3350 Powder 17 GM Packet PO SCH (08:04)
[2022-09-23] MEDS: Lactobacillus Rhamnosus GG (Probiotic) Cap PO SCH (08:05)
[2022-09-23] MEDS: DULoxetine 30 MG Cap PO SCH (08:05)
[2022-09-23] MEDS: Magnesium Chloride 64 MG Tab.ER PO SCH (08:05)
[2022-09-23] MEDS: Cholecalciferol (Vitamin D3) 25 MCG Tab PO SCH (08:06)
[2022-09-23] MEDS: Metoprolol Succinate 50 MG Tab.ER PO SCH (08:07)
[2022-09-23] MEDS: Furosemide 20 MG Tab PO SCH (08:07)
[2022-09-23] MEDS: Digoxin 125 MCG Tab PO SCH (08:07)
[2022-09-23] MEDS: Calcium Carbonate/Vitamin D3 1250 MG-5 MCG Tab PO SCH (08:07)
[2022-09-23] MEDS: Ascorbic Acid 500 MG Tab PO SCH (08:08)
[2022-09-23] MEDS: Primidone 50 MG Tab PO SCH (08:08)
[2022-09-23] MEDS: Multivitamin Tab PO SCH (08:08)
[2022-09-23] MEDS: Lidocaine 4% 1 each Patch TOP SCH (08:09)
[2022-09-23] MEDS: Cyanocobalamin (Vitamin B12) 1,000 MCG Tab PO SCH (08:09)
== END 2022-09-23 09:00 | disposition home or self-care (01) ==
LOC: VM.ED 11:27 → SUPCPDRO 11:27 → VM.MS 13:09
PROVIDERS: ADMIT Physician Assistant Medical; ATTEND Physician Assistant Medical
DX: R07.89 Other chest pain (principal); R77.8 Other specified abnormalities of plasma proteins; M79.18 Myalgia, other site; I21.4 Non-ST elevation (NSTEMI) myocardial infarction; I50.32 Chronic diastolic (congestive) heart failure; I48.20 Chronic atrial fibrillation, unspecified; D61.818 Other pancytopenia; N18.2 Chronic kidney disease, stage 2 (mild); E78.00 Pure hypercholesterolemia, unspecified; E78.1 Pure hyperglyceridemia; G25.0 Essential tremor; M81.0 Age-related osteoporosis without current pathological fracture; N17.9 Acute kidney failure, unspecified; F41.9 Anxiety disorder, unspecified; E55.9 Vitamin D deficiency, unspecified; M47.812 Spondylosis without myelopathy or radiculopathy, cervical region; Z79.01 Long term (current) use of anticoagulants; Z79.899 Other long term (current) drug therapy; Z86.16 Personal history of COVID-19; Z98.890 Other specified postprocedural states
CPT/HCPCS: 20553; 36415; 71046; 72052; 80048; 80053; 82550; 83615; 83880; 84484; 85025; 85610; 86140; 93005; 97162-GP; 99285; A9270-GY; G0378; J2795

== ENCOUNTER 2023-12-04 12:16 | Emergency (ER) | payer MEDICARE, OTHER ==
[2023-12-04 12:44] VITALS: BP 147/65; PULSE 72
== END 2023-12-04 13:30 | disposition home or self-care (01) ==
LOC: VM.ED 12:16
DX: S09.90XA Unspecified injury of head, initial encounter (principal); E78.00 Pure hypercholesterolemia, unspecified; Z86.16 Personal history of COVID-19; Z91.048 Other nonmedicinal substance allergy status; Z79.01 Long term (current) use of anticoagulants; Z79.2 Long term (current) use of antibiotics; Z79.899 Other long term (current) drug therapy; W22.8XXA Striking against or struck by other objects, initial encounter
CPT/HCPCS: 70450; 99283; 99284

== ENCOUNTER 2024-01-22 08:19 | Emergency (ER) | payer MEDICARE, OTHER ==
[2024-01-22] MEDS: Acetaminophen/HYDROcodone 325-5 MG Tab PO ONE (08:34)
[2024-01-22 08:45] VITALS: BP 149/70; PULSE 71
== END 2024-01-22 11:10 | disposition home or self-care (01) ==
LOC: VM.ED 08:19
DX: S20.211A Contusion of right front wall of thorax, initial encounter (principal); I25.10 Atherosclerotic heart disease of native coronary artery without angina pectoris; E78.00 Pure hypercholesterolemia, unspecified; I48.91 Unspecified atrial fibrillation; I50.9 Heart failure, unspecified; Z86.16 Personal history of COVID-19; Z91.048 Other nonmedicinal substance allergy status; Z91.018 Allergy to other foods; Z79.899 Other long term (current) drug therapy; Z79.01 Long term (current) use of anticoagulants; W01.0XXA Fall on same level from slipping, tripping and stumbling without subsequent striking against object, initial encounter
CPT/HCPCS: 71101-RT; 72072; 99283; A9270-GY

== ENCOUNTER 2024-04-24 11:12 | Emergency (ER) | payer MEDICARE, OTHER ==
[2024-04-24 11:59] VITALS: BP 146/64; PULSE 64
[2024-04-24 12:16] LABS: BASOPHILS PERCENT AUTO 0.3 % (0.2-1.2); EOSINOPHILS ABSOLUTE AUTO 0.1 x10^3/uL (0.0-0.5); EOSINOPHILS PERCENT AUTO 2.4 % (0.0-4.0); HEMATOCRIT 34.8 % (33.0-47.0); HEMOGLOBIN 12.2 g/dL (12.0-16.0); LYMPHOCYTES ABSOLUTE AUTO 0.9 x10^3/uL (1.0-4.8); LYMPHOCYTES PERCENT AUTO 29.7 % (25.0-50.0); MEAN CORPUSCULAR HEMOGLOBIN 32.4 pg (26.0-32.0); MEAN CORPUSCULAR HGB CONC 35.1 g/dL (32.0-36.0); MEAN CORPUSCULAR VOLUME 92.6 fL (78.0-93.0); MONOCYTES ABSOLUTE AUTO 0.3 x10^3/uL (0.0-0.8); MONOCYTES PERCENT AUTO 9.1 % (2.0-11.0); NEUTROPHILS ABSOLUTE AUTO 1.7 x10^3/uL (1.8-7.7); NEUTROPHILS PERCENT AUTO 58.5 % (50.0-80.0); PLATELET COUNT,PLT 92 x10^3/uL (130-400); RED BLOOD CELL COUNT 3.76 x10^6/uL (4.00-5.50)
[2024-04-24 12:36] LABS: A/G RATIO 1.19; ALBUMIN 3.8 g/dL (3.4-5.0); BILIRUBIN TOTAL 0.7 mg/dL (0.2-1.0); CALCIUM 9.1 mg/dL (8.5-10.1); EST CRCL DRUG DOSING (CG) 33.79 mL/min; POTASSIUM,K 4.3 mmol/L (3.5-5.1)
[2024-04-24 12:38] LABS: ANION GAP 11.3 mmol/L (5-15)
[2024-04-24 12:43] LABS: PTT,PARTIAL THROMBOPLSTIN TIME 45.7 SEC (21.9-33.8)
[2024-04-24 12:46] LABS: INR 3.2 (0.9-1.1); PROTHROMBIN TIME 30.3 SEC (8.9-11.5)
[2024-04-24] MEDS: Aspirin 81 MG Tab.Chew PO ONE (15:04)
== END 2024-04-24 15:55 ==
LOC: SUPCPDRO 11:12 → VM.ED 11:12
DX: S40.021A Contusion of right upper arm, initial encounter (principal); I21.4 Non-ST elevation (NSTEMI) myocardial infarction; R79.89 Other specified abnormal findings of blood chemistry; I50.9 Heart failure, unspecified; I25.10 Atherosclerotic heart disease of native coronary artery without angina pectoris; I48.91 Unspecified atrial fibrillation; Z86.16 Personal history of COVID-19; Z79.01 Long term (current) use of anticoagulants; Z79.899 Other long term (current) drug therapy; Z91.048 Other nonmedicinal substance allergy status; W19.XXXA Unspecified fall, initial encounter
CPT/HCPCS: 36415; 70450; 80053; 84484; 85025; 85610; 85730; 93005; 99285; A9270

== ENCOUNTER 2024-05-06 07:31 | Emergency (ER) | payer MEDICARE, OTHER ==
[2024-05-06] MEDS ORDERED: Sodium Chloride 0.9% 10 ML Syringe FLUSH PRN (08:13)
[2024-05-06] MEDS: Acetaminophen 325 MG Tab PO ONE (08:20)
[2024-05-06 08:22] LABS: BASOPHILS PERCENT AUTO 0.4 % (0.2-1.2); EOSINOPHILS ABSOLUTE AUTO 0.1 x10^3/uL (0.0-0.5); EOSINOPHILS PERCENT AUTO 4.2 % (0.0-4.0); HEMATOCRIT 35.5 % (33.0-47.0); HEMOGLOBIN 12.2 g/dL (12.0-16.0); LYMPHOCYTES ABSOLUTE AUTO 0.7 x10^3/uL (1.0-4.8); LYMPHOCYTES PERCENT AUTO 28.2 % (25.0-50.0); MEAN CORPUSCULAR HEMOGLOBIN 32.9 pg (26.0-32.0); MEAN CORPUSCULAR HGB CONC 34.4 g/dL (32.0-36.0); MEAN CORPUSCULAR VOLUME 95.7 fL (78.0-93.0); MONOCYTES ABSOLUTE AUTO 0.2 x10^3/uL (0.0-0.8); MONOCYTES PERCENT AUTO 9.2 % (2.0-11.0); NEUTROPHILS ABSOLUTE AUTO 1.5 x10^3/uL (1.8-7.7); PLATELET COUNT,PLT 99 x10^3/uL (130-400); RED BLOOD CELL COUNT 3.71 x10^6/uL (4.00-5.50)
[2024-05-06 08:35] VITALS: BP 109/67; PULSE 72
[2024-05-06 08:36] LABS: INR 1.9 (0.9-1.1); PROTHROMBIN TIME 18.8 SEC (8.9-11.5)
[2024-05-06 08:37] LABS: WHITE BLOOD CELL COUNT,WBC 2.6 x10^3/uL (4.0-10.0)
[2024-05-06 08:47] LABS: A/G RATIO 1.12; ALBUMIN 3.7 g/dL (3.4-5.0); ANION GAP 10.8 mmol/L (5-15); BILIRUBIN TOTAL 0.7 mg/dL (0.2-1.0); CREATININE 1.1 mg/dL (0.55-1.02); EST CRCL DRUG DOSING (CG) 31.71 mL/min; MAGNESIUM 1.9 mg/dL (1.8-2.4); POTASSIUM,K 3.8 mmol/L (3.5-5.1)
== END 2024-05-06 09:24 | disposition home or self-care (01) ==
LOC: VM.ED 07:31
DX: I48.91 Unspecified atrial fibrillation (principal); I50.22 Chronic systolic (congestive) heart failure; I25.10 Atherosclerotic heart disease of native coronary artery without angina pectoris; E78.00 Pure hypercholesterolemia, unspecified; Z91.048 Other nonmedicinal substance allergy status; Z91.018 Allergy to other foods; Z79.899 Other long term (current) drug therapy; Z79.01 Long term (current) use of anticoagulants; Z86.16 Personal history of COVID-19
CPT/HCPCS: 71045; 80053; 83735; 83880; 84484; 85025; 85610; 93005; 93010; 99284; 99285; A9270-GY

== ENCOUNTER 2024-07-26 09:08 | Emergency (ER) | payer MEDICARE, OTHER ==
[2024-07-26 10:05] LABS: BASOPHILS PERCENT AUTO 0.2 % (0.2-1.2); EOSINOPHILS ABSOLUTE AUTO 0.1 x10^3/uL (0.0-0.5); EOSINOPHILS PERCENT AUTO 2.1 % (0.0-4.0); HEMATOCRIT 38.5 % (33.0-47.0); HEMOGLOBIN 13.1 g/dL (12.0-16.0); IMMATURE GRAN ABSOLUTE AUTO 0.03 x10^3/uL (0.00-0.07); LYMPHOCYTES ABSOLUTE AUTO 0.9 x10^3/uL (1.0-4.8); LYMPHOCYTES PERCENT AUTO 14.7 % (25.0-50.0); MEAN CORPUSCULAR HEMOGLOBIN 32.3 pg (26.0-32.0); MEAN CORPUSCULAR VOLUME 95.1 fL (78.0-93.0); MONOCYTES ABSOLUTE AUTO 0.3 x10^3/uL (0.0-0.8); NEUTROPHILS ABSOLUTE AUTO 4.9 x10^3/uL (1.8-7.7); NEUTROPHILS PERCENT AUTO 77.5 % (50.0-80.0); PLATELET COUNT,PLT 111 x10^3/uL (130-400); RED BLOOD CELL COUNT 4.05 x10^6/uL (4.00-5.50); WHITE BLOOD CELL COUNT,WBC 6.3 x10^3/uL (4.0-10.0)
[2024-07-26 10:09] LABS: APPEARANCE,URINE CLEAR (CLEAR); BILIRUBIN,URINE NEGATIVE (NEGATIVE); COLOR,URINE YELLOW (YELLOW); GLUCOSE,URINE NEGATIVE (NEGATIVE); KETONES,URINE NEGATIVE (NEGATIVE); LEUKOCYTE ESTERASE,URINE NEGATIVE (NEGATIVE); NITRITE,URINE NEGATIVE (NEGATIVE); OCCULT BLOOD,URINE SMALL (NEGATIVE); PH,URINE 6.5 (5.0-8.0); PROTEIN,URINE NEGATIVE (NEGATIVE); UROBILINOGEN,URINE 0.2 EU/dL (0.2)
[2024-07-26 10:12] LABS: BACTERIA,URINE OCCASIONAL /HPF (NOT SEEN); MUCUS,URINE OCCASIONAL /LPF (NOT SEEN); SQUAMOUS EPITHELIAL CELLS,UR FEW /HPF (NOT SEEN); WBC,URINE 0-5 /HPF (NOT SEEN)
[2024-07-26 10:22] VITALS: BP 144/60; PULSE 99
[2024-07-26 10:25] LABS: A/G RATIO 1.28; ALBUMIN 4.1 g/dL (3.4-5.0); ANION GAP 9.8 mmol/L (5-15); BILIRUBIN TOTAL 0.9 mg/dL (0.2-1.0); CALCIUM 8.9 mg/dL (8.5-10.1); CREATININE 1.1 mg/dL (0.55-1.02); EST CRCL DRUG DOSING (CG) 31.59 mL/min; POTASSIUM,K 3.8 mmol/L (3.5-5.1); PROTEIN TOTAL,TP 7.3 g/dL (6.4-8.2)
[2024-07-26] MEDS: Sodium Chloride 0.9% 500 ML IV ONE (10:27)
[2024-07-26 10:45] LABS: CORONAVIRUS COVID-19 NAA NEGATIVE (NEGATIVE); INFLUENZA A NAA NEGATIVE (NEGATIVE); INFLUENZA B NAA NEGATIVE (NEGATIVE); RESPIRATORY SYNCYTIAL VIR NAA NEGATIVE (NEGATIVE)
== END 2024-07-26 11:24 | disposition home or self-care (01) ==
LOC: VM.ED 09:08
DX: R29.6 Repeated falls (principal); M53.3 Sacrococcygeal disorders, not elsewhere classified; I25.10 Atherosclerotic heart disease of native coronary artery without angina pectoris; I48.91 Unspecified atrial fibrillation; E78.00 Pure hypercholesterolemia, unspecified; Z86.16 Personal history of COVID-19; Z95.810 Presence of automatic (implantable) cardiac defibrillator; Z79.01 Long term (current) use of anticoagulants; Z79.899 Other long term (current) drug therapy; Z91.048 Other nonmedicinal substance allergy status
CPT/HCPCS: 0241U; 36415; 80053; 81001; 84484; 85025; 93010; 96360; 99283-25; 99284; J7030

== ENCOUNTER 2024-10-09 13:19 | Inpatient (IN) | payer MEDICARE, OTHER ==
[2024-10-09] MEDS ORDERED: Simethicone 80 MG Tab.Chew PO PRN (17:36)
[2024-10-09] MEDS ORDERED: Loratadine 10 MG Tab PO PRN (17:36)
[2024-10-09 19:11] LABS: INR 3.8 (0.9-1.1); PROTHROMBIN TIME 35.9 SEC (8.9-11.5)
[2024-10-09] MEDS: Hypromellose 0.3% Ophth Soln 15 ML Bottle EYEBOTH SCH (20:07)
[2024-10-09] MEDS: Primidone 50 MG Tab PO SCH (20:08)
[2024-10-09] MEDS: ClonazePAM 0.5 MG Tab PO PRN (20:09)
[2024-10-09] MEDS: Gabapentin 100 MG Cap PO SCH (20:09)
[2024-10-09] MEDS: Calcium Carbonate/Vitamin D3 1250 MG-5 MCG Tab PO SCH (20:09)
[2024-10-09] MEDS: Metoprolol Succinate 50 MG Tab.ER PO SCH (20:10)
[2024-10-10 07:25] LABS: INR 3.8 (0.9-1.1); PROTHROMBIN TIME 35.9 SEC (8.9-11.5)
[2024-10-10] MEDS ORDERED: [UNRECOGNIZED DRUG - REMARK] SCH (08:45)
[2024-10-10] MEDS ORDERED: Non-Formulary Medication 1 Each (Ascorbic Acid [Vitamin C] 250 MG Tablet) PO SCH (09:00)
[2024-10-10] MEDS: DULoxetine 30 MG Cap PO SCH (09:22)
[2024-10-10] MEDS: Magnesium Chloride 64 MG Tab.ER PO SCH (09:22)
[2024-10-10] MEDS: Lactobacillus Rhamnosus GG (Probiotic) Cap PO SCH (09:22)
[2024-10-10] MEDS: Cyanocobalamin (Vitamin B12) 1,000 MCG Tab PO SCH (09:26)
[2024-10-10] MEDS: Memantine 10 MG Tab PO SCH (09:26)
[2024-10-10] MEDS: Polyethylene Glycol 3350 Powder 17 GM Packet PO SCH (09:29)
[2024-10-10] MEDS: Furosemide 20 MG Tab PO SCH (09:58)
[2024-10-10] MEDS: Furosemide 40 MG Tab PO SCH (10:20)
[2024-10-10] MEDS: Amiodarone 200 MG Tab PO SCH (10:34)
[2024-10-10] MEDS: Ascorbic Acid 500 MG Tab PO SCH (10:34)
[2024-10-10] MEDS: Lidocaine 4% 1 each Patch TOP SCH (10:36)
[2024-10-10] MEDS ORDERED: Lidocaine 4% 1 each Patch TOP PRN (11:21)
[2024-10-10] MEDS ORDERED: Primidone 50 MG Tab PO SCH ×2 (12:00)
[2024-10-10] MEDS: Primidone 50 MG Tab PO SCH (12:32)
[2024-10-10 18:26] LABS: CREATININE 1.1 mg/dL (0.55-1.02); EST CRCL DRUG DOSING (CG) 30.46 mL/min; POTASSIUM,K 3.9 mmol/L (3.5-5.1)
[2024-10-10 18:28] LABS: ANION GAP 12.9 mmol/L (5-15)
[2024-10-10] MEDS: Melatonin 3 MG Tab PO PRN (20:01)
[2024-10-10] MEDS: Amoxicillin/Clavulanate K 875-125 MG Tab PO SCH (20:01)
[2024-10-10] MEDS: Warfarin 2.5 MG Tab PO SCH (20:02)
[2024-10-11 08:13] LABS: INR 3.3 (0.9-1.1); PROTHROMBIN TIME 31.2 SEC (8.9-11.5)
[2024-10-11] MEDS ORDERED: [UNRECOGNIZED DRUG - REMARK] SCH (08:45)
[2024-10-11] MEDS: Cholecalciferol (Vitamin D3) 25 MCG Tab PO SCH (09:45)
[2024-10-11] MEDS: Warfarin 5 MG Tab PO SCH (20:01)
[2024-10-11] MEDS: Gabapentin 100 MG Cap PO SCH (20:02)
[2024-10-12 09:42] LABS: INR 3.4 (0.9-1.1); PROTHROMBIN TIME 32.4 SEC (8.9-11.5)
[2024-10-12] MEDS: Warfarin 5 MG Tab PO SCH (20:06)
[2024-10-13 07:14] LABS: BASOPHILS PERCENT AUTO 0.3 % (0.2-1.2); EOSINOPHILS ABSOLUTE AUTO 0.1 x10^3/uL (0.0-0.5); EOSINOPHILS PERCENT AUTO 3.7 % (0.0-4.0); HEMATOCRIT 29.4 % (33.0-47.0); LYMPHOCYTES ABSOLUTE AUTO 0.6 x10^3/uL (1.0-4.8); LYMPHOCYTES PERCENT AUTO 20.4 % (25.0-50.0); MEAN CORPUSCULAR HEMOGLOBIN 32.9 pg (26.0-32.0); MEAN CORPUSCULAR VOLUME 96.7 fL (78.0-93.0); MONOCYTES ABSOLUTE AUTO 0.3 x10^3/uL (0.0-0.8); NEUTROPHILS ABSOLUTE AUTO 1.9 x10^3/uL (1.8-7.7); NEUTROPHILS PERCENT AUTO 64.6 % (50.0-80.0); RED BLOOD CELL COUNT 3.04 x10^6/uL (4.00-5.50)
[2024-10-13 07:30] LABS: A/G RATIO 0.86; ALBUMIN 2.5 g/dL (3.4-5.0); CREATININE 0.9 mg/dL (0.55-1.02); EST CRCL DRUG DOSING (CG) 37.24 mL/min; PROTEIN TOTAL,TP 5.4 g/dL (6.4-8.2)
[2024-10-13 07:31] LABS: PLATELET COUNT,PLT 95 x10^3/uL (130-400)
[2024-10-13 07:35] LABS: INR 4.5 (0.9-1.1); PROTHROMBIN TIME 42.4 SEC (8.9-11.5)
[2024-10-14] MEDS: Acetaminophen 325 MG Tab PO PRN (04:49)
[2024-10-14 07:15] LABS: INR 3.9 (0.9-1.1); PROTHROMBIN TIME 36.7 SEC (8.9-11.5)
[2024-10-14] MEDS: Furosemide 20 MG Tab PO ONE (10:25)
[2024-10-14 12:43] VITALS: BP 144/79; PULSE 95
[2024-10-15] MEDS ORDERED: Furosemide 20 MG Tab PO SCH (09:00)
== END 2024-10-14 12:47 | disposition home or self-care (01) | DRG 280 ==
LOC: VM.MS 14:14
PROVIDERS: ADMIT Internal Medicine; ATTEND Internal Medicine
DX: I11.0 Hypertensive heart disease with heart failure (principal); I50.43 Acute on chronic combined systolic (congestive) and diastolic (congestive) heart failure; I21.A1 Myocardial infarction type 2; I48.20 Chronic atrial fibrillation, unspecified; E44.0 Moderate protein-calorie malnutrition; D61.818 Other pancytopenia; F02.83 Dementia in other diseases classified elsewhere, unspecified severity, with mood disturbance; Z68.1 Body mass index [BMI] 19.9 or less, adult; I25.10 Atherosclerotic heart disease of native coronary artery without angina pectoris; R29.6 Repeated falls; E83.39 Other disorders of phosphorus metabolism; G30.9 Alzheimer's disease, unspecified; F39 Unspecified mood [affective] disorder; G47.00 Insomnia, unspecified; Z91.048 Other nonmedicinal substance allergy status; Z91.09 Other allergy status, other than to drugs and biological substances; Z79.01 Long term (current) use of anticoagulants; Z79.899 Other long term (current) drug therapy; Z95.810 Presence of automatic (implantable) cardiac defibrillator; Z95.2 Presence of prosthetic heart valve; Z95.5 Presence of coronary angioplasty implant and graft; Z98.890 Other specified postprocedural states
CPT/HCPCS: 36415; 71045; 80048; 80053; 85025; 85610; 97116-GP; 97161-GP; 97165-GO; 97535-GO; A9270-GY

== ENCOUNTER 2024-12-24 13:43 | Emergency (ER) | payer MEDICARE ==
[2024-12-24 14:21] LABS: BASOPHILS PERCENT AUTO 0.2 % (0.2-1.2); EOSINOPHILS ABSOLUTE AUTO 0.1 x10^3/uL (0.0-0.5); EOSINOPHILS PERCENT AUTO 2.4 % (0.0-4.0); HEMATOCRIT 36.5 % (33.0-47.0); HEMOGLOBIN 12.2 g/dL (12.0-16.0); IMMATURE GRAN ABSOLUTE AUTO 0.01 x10^3/uL (0.00-0.07); LYMPHOCYTES ABSOLUTE AUTO 0.5 x10^3/uL (1.0-4.8); LYMPHOCYTES PERCENT AUTO 10.7 % (25.0-50.0); MEAN CORPUSCULAR HEMOGLOBIN 32.2 pg (26.0-32.0); MEAN CORPUSCULAR HGB CONC 33.4 g/dL (32.0-36.0); MEAN CORPUSCULAR VOLUME 96.3 fL (78.0-93.0); MONOCYTES ABSOLUTE AUTO 0.4 x10^3/uL (0.0-0.8); NEUTROPHILS ABSOLUTE AUTO 3.5 x10^3/uL (1.8-7.7); NEUTROPHILS PERCENT AUTO 77.5 % (50.0-80.0); RED BLOOD CELL COUNT 3.79 x10^6/uL (4.00-5.50); WHITE BLOOD CELL COUNT,WBC 4.6 x10^3/uL (4.0-10.0)
[2024-12-24 14:33] LABS: PLATELET COUNT,PLT 119 x10^3/uL (130-400)
[2024-12-24 14:37] LABS: A/G RATIO 0.82; ALANINE AMINOTRANSFERASE,ALT 38 U/L (14-59); ALBUMIN 3.1 g/dL (3.4-5.0); ALKALINE PHOSPHATASE 110 U/L (46-116); ASPARTATE AMNIOTRANSFERASE,AST 54 U/L (15-37); BILIRUBIN TOTAL 1.9 mg/dL (0.2-1.0); BLOOD UREA NITROGEN,BUN 22 mg/dL (7-18); C-REACTIVE PROTEIN 4.95 mg/dL (<=0.50); CALCIUM 8.5 mg/dL (8.5-10.1); CARBON DIOXIDE,CO2 30 mmol/L (21-32); CHLORIDE,CL 100 mmol/L (98-107); CREATININE 1.3 mg/dL (0.55-1.02); GLUCOSE RANDOM 160 mg/dL (70-99); POTASSIUM,K 3.8 mmol/L (3.5-5.1); PROTEIN TOTAL,TP 6.9 g/dL (6.4-8.2); SODIUM,NA 139 mmol/L (136-145)
[2024-12-24 14:38] LABS: ANION GAP 12.8 mmol/L (5-15); ESTIMATED GFR 41 mL/min (>=60)
[2024-12-24] MEDS: Codeine/guaiFENesin 10-100 MG/5 ML Syrup 5 ML Cup PO ONE (14:48)
[2024-12-24] MEDS ORDERED: Sodium Chloride 0.9% 10 ML Syringe FLUSH PRN (14:58)
[2024-12-24 15:07] VITALS: BP 119/56
[2024-12-24] MEDS: Albuterol/Ipratropium 3.0-0.5 MG/3 ML Neb Soln NEB ONE (15:13)
[2024-12-24] MEDS: methylPREDNISolone Sodium Succinate 125 MG/2 ML SDV IVPUSH ONE (15:18)
[2024-12-24 16:14] VITALS: PULSE 107
== END 2024-12-24 15:55 | disposition home or self-care (01) ==
LOC: VM.ED 13:43
DX: J40 Bronchitis, not specified as acute or chronic (principal); I48.91 Unspecified atrial fibrillation; I25.10 Atherosclerotic heart disease of native coronary artery without angina pectoris; E78.00 Pure hypercholesterolemia, unspecified; Z91.048 Other nonmedicinal substance allergy status; Z91.011 Allergy to milk products; Z79.899 Other long term (current) drug therapy; Z86.16 Personal history of COVID-19; Z79.01 Long term (current) use of anticoagulants; Z79.51 Long term (current) use of inhaled steroids
CPT/HCPCS: 36415; 71045; 80053; 85025; 86140; 87428-QW; 94640; 96374; 99283; 99284-25; A9270-GY; J2919; J7620-GY

== ENCOUNTER 2024-12-31 13:32 | Inpatient (IN) | payer MEDICARE, OTHER ==
[2024-12-31 14:44] LABS: BASOPHILS PERCENT AUTO 0.2 % (0.2-1.2); EOSINOPHILS ABSOLUTE AUTO 0.2 x10^3/uL (0.0-0.5); EOSINOPHILS PERCENT AUTO 3.5 % (0.0-4.0); HEMATOCRIT 36.2 % (33.0-47.0); HEMOGLOBIN 11.9 g/dL (12.0-16.0); IMMATURE GRAN ABSOLUTE AUTO 0.01 x10^3/uL (0.00-0.07); LYMPHOCYTES ABSOLUTE AUTO 0.8 x10^3/uL (1.0-4.8); LYMPHOCYTES PERCENT AUTO 15.9 % (25.0-50.0); MEAN CORPUSCULAR HEMOGLOBIN 31.9 pg (26.0-32.0); MEAN CORPUSCULAR HGB CONC 32.9 g/dL (32.0-36.0); MEAN CORPUSCULAR VOLUME 97.1 fL (78.0-93.0); MONOCYTES ABSOLUTE AUTO 0.4 x10^3/uL (0.0-0.8); MONOCYTES PERCENT AUTO 8.4 % (2.0-11.0); NEUTROPHILS ABSOLUTE AUTO 3.5 x10^3/uL (1.8-7.7); NEUTROPHILS PERCENT AUTO 71.8 % (50.0-80.0); PLATELET COUNT,PLT 124 x10^3/uL (130-400); RED BLOOD CELL COUNT 3.73 x10^6/uL (4.00-5.50); WHITE BLOOD CELL COUNT,WBC 4.9 x10^3/uL (4.0-10.0)
[2024-12-31] MEDS: Albuterol/Ipratropium 3.0-0.5 MG/3 ML Neb Soln NEB SCH (14:48)
[2024-12-31 15:00] LABS: A/G RATIO 0.82; ALANINE AMINOTRANSFERASE,ALT 45 U/L (14-59); ALBUMIN 3.2 g/dL (3.4-5.0); ALKALINE PHOSPHATASE 100 U/L (46-116); ASPARTATE AMNIOTRANSFERASE,AST 42 U/L (15-37); BILIRUBIN TOTAL 1.5 mg/dL (0.2-1.0); BLOOD UREA NITROGEN,BUN 15 mg/dL (7-18); CALCIUM 8.8 mg/dL (8.5-10.1); CARBON DIOXIDE,CO2 32 mmol/L (21-32); CHLORIDE,CL 97 mmol/L (98-107); CREATININE 1.3 mg/dL (0.55-1.02); GLUCOSE RANDOM 87 mg/dL (70-99); POTASSIUM,K 4.3 mmol/L (3.5-5.1); PROTEIN TOTAL,TP 7.1 g/dL (6.4-8.2); SODIUM,NA 134 mmol/L (136-145)
[2024-12-31 15:02] LABS: ANION GAP 9.3 mmol/L (5-15); ESTIMATED GFR 41 mL/min (>=60)
[2024-12-31] MEDS: cefTRIAXone 1 GM Vial IVPUSH SCH (15:05)
[2024-12-31] MEDS: Azithromycin 500 MG in Sodium Chloride 0.9% 250 ML IV SCH (15:05)
[2024-12-31] MEDS: Benzonatate 100 MG Cap PO SCH (15:05)
[2024-12-31 15:06] LABS: LACTIC ACID 2.2 mmol/L (0.4-2.0)
[2024-12-31 15:07] LABS: INR 3.1 (0.9-1.1); PROTHROMBIN TIME 31.5 SEC (9.6-12.0)
[2024-12-31] MEDS: Albuterol 0.083% 2.5 MG/3 ML Neb Soln NEB PRN (15:43)
[2024-12-31] MEDS ORDERED: Simethicone 80 MG Tab.Chew PO PRN (16:11)
[2024-12-31] MEDS ORDERED: Sennosides/Docusate Sodium 50-8.6 MG Tab PO PRN (16:11)
[2024-12-31] MEDS ORDERED: Acetaminophen 325 MG Tab PO PRN (16:11)
[2024-12-31 16:46] LABS: TSH ULTRASENSITIVE 4.515 uIU/mL (0.358-3.74)
[2024-12-31] MEDS: Metoprolol Succinate 50 MG Tab.ER PO SCH (17:43)
[2024-12-31] MEDS: Amiodarone 200 MG Tab PO SCH (17:44)
[2024-12-31] MEDS: Hypromellose 0.3% Ophth Soln 15 ML Bottle EYEBOTH SCH (17:44)
[2024-12-31] MEDS: Calcium Carbonate/Vitamin D3 1250 MG-5 MCG Tab PO SCH (17:44)
[2024-12-31] MEDS: Cholecalciferol (Vitamin D3) 25 MCG Tab PO SCH (17:44)
[2024-12-31] MEDS: Sodium Chloride 0.9% 1,000 ML IV ONE (19:04)
[2024-12-31] MEDS ORDERED: HYDROmorphone 0.5 MG/0.5 ML Syringe IVPUSH PRN (19:44)
[2024-12-31] MEDS: Melatonin 3 MG Tab PO SCH (20:06)
[2024-12-31] MEDS: Primidone 50 MG Tab PO SCH (20:07)
[2024-12-31] MEDS: QUEtiapine 25 MG Tab PO SCH (20:08)
[2024-12-31] MEDS: Warfarin 2.5 MG Tab PO SCH (20:08)
[2024-12-31] MEDS: Memantine 10 MG Tab PO SCH (20:09)
[2024-12-31] MEDS: VANCOmycin 1 GM in Sodium Chloride 0.9% 250 ML IV ONE (20:38)
[2024-12-31] MEDS: Sodium Chloride 0.9% 1,000 ML IV SCH (20:48)
[2024-12-31] MEDS: Piperacillin/Tazobactam 4.5 GM in Sodium Chloride 0.9% 100 ML IV SCH (21:52)
[2025-01-01] MEDS: Levothyroxine 25 MCG Tab PO SCH (06:02)
[2025-01-01 07:11] LABS: BASOPHILS PERCENT AUTO 0.1 % (0.2-1.2); EOSINOPHILS PERCENT AUTO 0.3 % (0.0-4.0); HEMATOCRIT 33.1 % (33.0-47.0); HEMOGLOBIN 11.1 g/dL (12.0-16.0); IMMATURE GRAN ABSOLUTE AUTO 0.03 x10^3/uL (0.00-0.07); LYMPHOCYTES ABSOLUTE AUTO 0.6 x10^3/uL (1.0-4.8); LYMPHOCYTES PERCENT AUTO 7.6 % (25.0-50.0); MEAN CORPUSCULAR HEMOGLOBIN 31.8 pg (26.0-32.0); MEAN CORPUSCULAR HGB CONC 33.5 g/dL (32.0-36.0); MEAN CORPUSCULAR VOLUME 94.8 fL (78.0-93.0); MONOCYTES ABSOLUTE AUTO 0.5 x10^3/uL (0.0-0.8); MONOCYTES PERCENT AUTO 6.3 % (2.0-11.0); NEUTROPHILS ABSOLUTE AUTO 6.5 x10^3/uL (1.8-7.7); NEUTROPHILS PERCENT AUTO 85.3 % (50.0-80.0); RED BLOOD CELL COUNT 3.49 x10^6/uL (4.00-5.50); WHITE BLOOD CELL COUNT,WBC 7.6 x10^3/uL (4.0-10.0)
[2025-01-01 07:26] LABS: PLATELET COUNT,PLT 89 x10^3/uL (130-400)
[2025-01-01 07:27] LABS: INR 4.1 (0.9-1.1); PROTHROMBIN TIME 41.5 SEC (9.6-12.0)
[2025-01-01 07:46] LABS: A/G RATIO 0.84; ALBUMIN 2.7 g/dL (3.4-5.0); BILIRUBIN TOTAL 1.5 mg/dL (0.2-1.0); CALCIUM 7.8 mg/dL (8.5-10.1); CREATININE 1.6 mg/dL (0.55-1.02); EST CRCL DRUG DOSING (CG) 21.18 mL/min; POTASSIUM,K 4.2 mmol/L (3.5-5.1); PROTEIN TOTAL,TP 5.9 g/dL (6.4-8.2)
[2025-01-01 07:47] LABS: ANION GAP 12.2 mmol/L (5-15)
[2025-01-01] MEDS: DULoxetine 30 MG Cap PO SCH (08:37)
[2025-01-01] MEDS: Cyanocobalamin (Vitamin B12) 1,000 MCG Tab PO SCH (08:37)
[2025-01-01] MEDS: Lactobacillus Rhamnosus GG (Probiotic) Cap PO SCH (08:37)
[2025-01-01] MEDS: Magnesium Chloride 64 MG Tab.ER PO SCH (08:37)
[2025-01-01] MEDS: Ascorbic Acid 500 MG Tab PO SCH (08:38)
[2025-01-01] MEDS: Polyethylene Glycol 3350 Powder 17 GM Packet PO SCH (08:38)
[2025-01-01] MEDS: Hydrocortisone Sodium Succinate 100 MG/2 ML SDV IVPUSH ONE (12:13)
[2025-01-01] MEDS: Lidocaine 4% Patch TOP SCH (12:14)
[2025-01-01] MEDS: Primidone 50 MG Tab PO SCH (12:14)
[2025-01-01] MEDS ORDERED: Warfarin 2.5 MG Tab PO SCH (21:00)
[2025-01-01] MEDS: VANCOmycin 500 MG in Sodium Chloride 0.9% 100 ML IV SCH (21:10)
[2025-01-02 07:14] LABS: BASOPHILS PERCENT AUTO 0.1 % (0.2-1.2); EOSINOPHILS PERCENT AUTO 0.6 % (0.0-4.0); HEMOGLOBIN 12.2 g/dL (12.0-16.0); IMMATURE GRAN ABSOLUTE AUTO 0.02 x10^3/uL (0.00-0.07); LYMPHOCYTES ABSOLUTE AUTO 0.7 x10^3/uL (1.0-4.8); LYMPHOCYTES PERCENT AUTO 10.3 % (25.0-50.0); MEAN CORPUSCULAR HEMOGLOBIN 31.9 pg (26.0-32.0); MEAN CORPUSCULAR HGB CONC 33.9 g/dL (32.0-36.0); MONOCYTES ABSOLUTE AUTO 0.4 x10^3/uL (0.0-0.8); MONOCYTES PERCENT AUTO 6.5 % (2.0-11.0); NEUTROPHILS ABSOLUTE AUTO 5.6 x10^3/uL (1.8-7.7); NEUTROPHILS PERCENT AUTO 82.2 % (50.0-80.0); PLATELET COUNT,PLT 113 x10^3/uL (130-400); RED BLOOD CELL COUNT 3.83 x10^6/uL (4.00-5.50); WHITE BLOOD CELL COUNT,WBC 6.8 x10^3/uL (4.0-10.0)
[2025-01-02 07:21] LABS: INR 3.4 (0.9-1.1); PROTHROMBIN TIME 34.1 SEC (9.6-12.0)
[2025-01-02 07:33] LABS: A/G RATIO 0.73; ALBUMIN 2.4 g/dL (3.4-5.0); BILIRUBIN TOTAL 1.6 mg/dL (0.2-1.0); CALCIUM 7.8 mg/dL (8.5-10.1); CREATININE 1.5 mg/dL (0.55-1.02); EST CRCL DRUG DOSING (CG) 22.93 mL/min; POTASSIUM,K 4.1 mmol/L (3.5-5.1); PROTEIN TOTAL,TP 5.7 g/dL (6.4-8.2)
[2025-01-02 07:34] LABS: ANION GAP 12.1 mmol/L (5-15)
[2025-01-02 07:56] LABS: APPEARANCE,URINE CLOUDY (CLEAR); BILIRUBIN,URINE NEGATIVE (NEGATIVE); COLOR,URINE YELLOW (YELLOW); GLUCOSE,URINE NEGATIVE (NEGATIVE); KETONES,URINE NEGATIVE (NEGATIVE); LEUKOCYTE ESTERASE,URINE NEGATIVE (NEGATIVE); NITRITE,URINE NEGATIVE (NEGATIVE); OCCULT BLOOD,URINE NEGATIVE (NEGATIVE); PH,URINE 5.5 (5.0-8.0); PROTEIN,URINE 30 mg/dL (NEGATIVE); UROBILINOGEN,URINE 0.2 EU/dL (0.2)
[2025-01-02 08:05] LABS: RBC,URINE 0-5 /HPF (NOT SEEN)
[2025-01-02 08:06] LABS: BACTERIA,URINE MANY /HPF (NOT SEEN); SQUAMOUS EPITHELIAL CELLS,UR FEW /HPF (NOT SEEN); WBC,URINE 0-5 /HPF (NOT SEEN)
[2025-01-02] MEDS: Codeine/guaiFENesin 10-100 MG/5 ML Syrup 5 ML Cup PO PRN (10:44)
[2025-01-02] MEDS ORDERED: Acetaminophen Soln 160 MG/5 ML UD Cup PO PRN (15:07)
[2025-01-02] MEDS: ClonazePAM 0.5 MG Tab PO PRN (16:11)
[2025-01-02] MEDS: Loratadine 10 MG Tab PO PRN (17:20)
[2025-01-02] MEDS: Amoxicillin/Clavulanate K 600-42.9 MG/5 ML Susp 125 ML Bottle PO SCH (18:09)
[2025-01-02] MEDS: Calcium Carbonate 750 MG Tab.Chew PO SCH (20:41)
[2025-01-02] MEDS: Warfarin 5 MG Tab PO SCH (20:42)
[2025-01-03 08:05] LABS: BASOPHILS PERCENT AUTO 0.2 % (0.2-1.2); EOSINOPHILS ABSOLUTE AUTO 0.1 x10^3/uL (0.0-0.5); EOSINOPHILS PERCENT AUTO 2.3 % (0.0-4.0); HEMATOCRIT 33.9 % (33.0-47.0); HEMOGLOBIN 11.5 g/dL (12.0-16.0); IMMATURE GRAN ABSOLUTE AUTO 0.01 x10^3/uL (0.00-0.07); LYMPHOCYTES ABSOLUTE AUTO 0.8 x10^3/uL (1.0-4.8); LYMPHOCYTES PERCENT AUTO 15.9 % (25.0-50.0); MEAN CORPUSCULAR HGB CONC 33.9 g/dL (32.0-36.0); MEAN CORPUSCULAR VOLUME 94.4 fL (78.0-93.0); MONOCYTES ABSOLUTE AUTO 0.3 x10^3/uL (0.0-0.8); MONOCYTES PERCENT AUTO 6.2 % (2.0-11.0); NEUTROPHILS ABSOLUTE AUTO 3.9 x10^3/uL (1.8-7.7); NEUTROPHILS PERCENT AUTO 75.2 % (50.0-80.0); PLATELET COUNT,PLT 124 x10^3/uL (130-400); RED BLOOD CELL COUNT 3.59 x10^6/uL (4.00-5.50); WHITE BLOOD CELL COUNT,WBC 5.2 x10^3/uL (4.0-10.0)
[2025-01-03 08:12] LABS: A/G RATIO 0.75; ALBUMIN 2.7 g/dL (3.4-5.0); BILIRUBIN TOTAL 1.6 mg/dL (0.2-1.0); CALCIUM 8.7 mg/dL (8.5-10.1); CREATININE 1.5 mg/dL (0.55-1.02); EST CRCL DRUG DOSING (CG) 23.12 mL/min; POTASSIUM,K 3.7 mmol/L (3.5-5.1); PROTEIN TOTAL,TP 6.3 g/dL (6.4-8.2)
[2025-01-03 08:17] LABS: ANION GAP 12.7 mmol/L (5-15)
[2025-01-03] MEDS: Magnesium Oxide 400 MG Tab PO SCH (08:23)
[2025-01-03] MEDS: guaiFENesin 100 MG/5 ML Soln 10 ML UD Cup PO PRN (09:44)
[2025-01-03] MEDS ORDERED: Labetalol 20 MG/4 ML Syringe IVPUSH ONE (13:17)
[2025-01-03] MEDS: Labetalol 20 MG/4 ML Syringe IVPUSH ONE (13:30)
[2025-01-03] MEDS: Sodium Chloride 0.9% 10 ML Syringe FLUSH PRN (13:31)
[2025-01-03] MEDS: Warfarin 2.5 MG Tab PO SCH (21:05)
[2025-01-03] MEDS: ClonazePAM 0.5 MG Tab PO PRN (22:31)
[2025-01-04 08:02] LABS: BASOPHILS PERCENT AUTO 0.4 % (0.2-1.2); EOSINOPHILS ABSOLUTE AUTO 0.1 x10^3/uL (0.0-0.5); HEMATOCRIT 34.9 % (33.0-47.0); HEMOGLOBIN 11.6 g/dL (12.0-16.0); IMMATURE GRAN ABSOLUTE AUTO 0.01 x10^3/uL (0.00-0.07); LYMPHOCYTES ABSOLUTE AUTO 0.7 x10^3/uL (1.0-4.8); MEAN CORPUSCULAR HEMOGLOBIN 31.7 pg (26.0-32.0); MEAN CORPUSCULAR HGB CONC 33.2 g/dL (32.0-36.0); MEAN CORPUSCULAR VOLUME 95.4 fL (78.0-93.0); MONOCYTES ABSOLUTE AUTO 0.4 x10^3/uL (0.0-0.8); MONOCYTES PERCENT AUTO 8.1 % (2.0-11.0); NEUTROPHILS ABSOLUTE AUTO 3.5 x10^3/uL (1.8-7.7); NEUTROPHILS PERCENT AUTO 74.3 % (50.0-80.0); PLATELET COUNT,PLT 118 x10^3/uL (130-400); RED BLOOD CELL COUNT 3.66 x10^6/uL (4.00-5.50); WHITE BLOOD CELL COUNT,WBC 4.7 x10^3/uL (4.0-10.0)
[2025-01-04 08:14] LABS: A/G RATIO 0.78; ALBUMIN 2.8 g/dL (3.4-5.0); ANION GAP 12.9 mmol/L (5-15); BILIRUBIN TOTAL 1.4 mg/dL (0.2-1.0); CREATININE 1.2 mg/dL (0.55-1.02); EST CRCL DRUG DOSING (CG) 28.95 mL/min; POTASSIUM,K 3.9 mmol/L (3.5-5.1); PROTEIN TOTAL,TP 6.4 g/dL (6.4-8.2)
[2025-01-04] MEDS: traMADol 50 MG Tab PO PRN (10:29)
[2025-01-04] MEDS: Menthol 10%/Methyl Salicylate 15% 85 GM Tube TOP PRN (10:30)
[2025-01-05 07:45] LABS: PROTHROMBIN TIME 40.8 SEC (9.6-12.0)
[2025-01-05 07:46] LABS: A/G RATIO 0.72; ALBUMIN 2.6 g/dL (3.4-5.0); BASOPHILS PERCENT AUTO 0.3 % (0.2-1.2); BILIRUBIN TOTAL 1.5 mg/dL (0.2-1.0); CREATININE 1.1 mg/dL (0.55-1.02); EOSINOPHILS ABSOLUTE AUTO 0.1 x10^3/uL (0.0-0.5); EOSINOPHILS PERCENT AUTO 1.9 % (0.0-4.0); EST CRCL DRUG DOSING (CG) 32.74 mL/min; HEMATOCRIT 34.5 % (33.0-47.0); HEMOGLOBIN 11.6 g/dL (12.0-16.0); IMMATURE GRAN ABSOLUTE AUTO 0.01 x10^3/uL (0.00-0.07); LYMPHOCYTES ABSOLUTE AUTO 0.9 x10^3/uL (1.0-4.8); LYMPHOCYTES PERCENT AUTO 13.9 % (25.0-50.0); MEAN CORPUSCULAR HGB CONC 33.6 g/dL (32.0-36.0); MONOCYTES ABSOLUTE AUTO 0.5 x10^3/uL (0.0-0.8); MONOCYTES PERCENT AUTO 8.1 % (2.0-11.0); NEUTROPHILS ABSOLUTE AUTO 4.7 x10^3/uL (1.8-7.7); NEUTROPHILS PERCENT AUTO 75.6 % (50.0-80.0); POTASSIUM,K 4.1 mmol/L (3.5-5.1); PROTEIN TOTAL,TP 6.2 g/dL (6.4-8.2); RED BLOOD CELL COUNT 3.63 x10^6/uL (4.00-5.50); WHITE BLOOD CELL COUNT,WBC 6.2 x10^3/uL (4.0-10.0)
[2025-01-05 07:47] LABS: ANION GAP 11.1 mmol/L (5-15)
[2025-01-05 08:05] LABS: PLATELET COUNT,PLT 132 x10^3/uL (130-400)
[2025-01-05] MEDS: Furosemide 40 MG/4 ML VIAL IV ONE (11:16)
[2025-01-05] MEDS: Metoprolol Tartrate 50 MG Tab PO SCH (12:59)
[2025-01-06 07:01] LABS: BASOPHILS PERCENT AUTO 0.2 % (0.2-1.2); EOSINOPHILS ABSOLUTE AUTO 0.1 x10^3/uL (0.0-0.5); EOSINOPHILS PERCENT AUTO 2.2 % (0.0-4.0); HEMATOCRIT 34.6 % (33.0-47.0); HEMOGLOBIN 11.8 g/dL (12.0-16.0); IMMATURE GRAN ABSOLUTE AUTO 0.02 x10^3/uL (0.00-0.07); LYMPHOCYTES ABSOLUTE AUTO 0.6 x10^3/uL (1.0-4.8); LYMPHOCYTES PERCENT AUTO 10.4 % (25.0-50.0); MEAN CORPUSCULAR HEMOGLOBIN 31.9 pg (26.0-32.0); MEAN CORPUSCULAR HGB CONC 34.1 g/dL (32.0-36.0); MEAN CORPUSCULAR VOLUME 93.5 fL (78.0-93.0); MONOCYTES ABSOLUTE AUTO 0.5 x10^3/uL (0.0-0.8); MONOCYTES PERCENT AUTO 8.6 % (2.0-11.0); NEUTROPHILS ABSOLUTE AUTO 4.5 x10^3/uL (1.8-7.7); NEUTROPHILS PERCENT AUTO 78.3 % (50.0-80.0); PLATELET COUNT,PLT 117 x10^3/uL (130-400); WHITE BLOOD CELL COUNT,WBC 5.8 x10^3/uL (4.0-10.0)
[2025-01-06 07:09] LABS: A/G RATIO 0.73; ALBUMIN 2.2 g/dL (3.4-5.0); BILIRUBIN TOTAL 1.7 mg/dL (0.2-1.0); CALCIUM 8.8 mg/dL (8.5-10.1); CREATININE 1.2 mg/dL (0.55-1.02); EST CRCL DRUG DOSING (CG) 13.07 mL/min; INR 2.3 (0.9-1.1); POTASSIUM,K 3.9 mmol/L (3.5-5.1); PROTEIN TOTAL,TP 5.2 g/dL (6.4-8.2); PROTHROMBIN TIME 23.8 SEC (9.6-12.0)
[2025-01-06 07:10] LABS: ANION GAP 8.9 mmol/L (5-15)
[2025-01-06] MEDS: Furosemide 20 MG/2 ML VIAL IV ONE (09:23)
[2025-01-06] MEDS: Spironolactone 25 MG Tab PO ONE (09:23)
[2025-01-06] MEDS ORDERED: Torsemide 20 MG Tab PO SCH (15:30)
[2025-01-06] MEDS ORDERED: Albuterol/Ipratropium 3.0-0.5 MG/3 ML Neb Soln NEB PRN (17:31)
[2025-01-06] MEDS: Metoprolol Succinate 50 MG Tab.ER PO SCH (20:15)
[2025-01-06] MEDS: Magnesium Oxide 400 MG Tab PO SCH (20:21)
[2025-01-06] MEDS: Warfarin 5 MG Tab PO SCH (20:26)
[2025-01-07] MEDS: Torsemide 20 MG Tab PO SCH (06:15)
[2025-01-07 07:04] LABS: BASOPHILS PERCENT AUTO 0.2 % (0.2-1.2); EOSINOPHILS ABSOLUTE AUTO 0.1 x10^3/uL (0.0-0.5); EOSINOPHILS PERCENT AUTO 2.1 % (0.0-4.0); HEMATOCRIT 31.5 % (33.0-47.0); HEMOGLOBIN 10.6 g/dL (12.0-16.0); IMMATURE GRAN ABSOLUTE AUTO 0.01 x10^3/uL (0.00-0.07); LYMPHOCYTES ABSOLUTE AUTO 0.6 x10^3/uL (1.0-4.8); LYMPHOCYTES PERCENT AUTO 12.2 % (25.0-50.0); MEAN CORPUSCULAR HEMOGLOBIN 31.5 pg (26.0-32.0); MEAN CORPUSCULAR HGB CONC 33.7 g/dL (32.0-36.0); MEAN CORPUSCULAR VOLUME 93.8 fL (78.0-93.0); MONOCYTES ABSOLUTE AUTO 0.5 x10^3/uL (0.0-0.8); MONOCYTES PERCENT AUTO 8.9 % (2.0-11.0); NEUTROPHILS PERCENT AUTO 76.4 % (50.0-80.0); PLATELET COUNT,PLT 116 x10^3/uL (130-400); RED BLOOD CELL COUNT 3.36 x10^6/uL (4.00-5.50); WHITE BLOOD CELL COUNT,WBC 5.2 x10^3/uL (4.0-10.0)
[2025-01-07 07:20] LABS: INR 2.1 (0.9-1.1); PROTHROMBIN TIME 21.9 SEC (9.6-12.0)
[2025-01-07 07:22] LABS: A/G RATIO 0.84; ALBUMIN 2.7 g/dL (3.4-5.0); BILIRUBIN TOTAL 1.6 mg/dL (0.2-1.0); CALCIUM 8.9 mg/dL (8.5-10.1); CREATININE 1.2 mg/dL (0.55-1.02); EST CRCL DRUG DOSING (CG) 29.99 mL/min; POTASSIUM,K 3.7 mmol/L (3.5-5.1); PROTEIN TOTAL,TP 5.9 g/dL (6.4-8.2)
[2025-01-07 07:26] LABS: ANION GAP 7.7 mmol/L (5-15)
[2025-01-07] MEDS: Spironolactone 25 MG Tab PO SCH (09:19)
[2025-01-07] MEDS: Magnesium Sulf/Wat 2 GM/50 mL 2 GM in Premix Bag 1 BAG IV ONE (09:29)
[2025-01-07] MEDS: Enoxaparin 40 MG/0.4 ML Syringe SUBCUT ONE (12:51)
[2025-01-07 13:39] VITALS: BP 141/91; PULSE 101
[2025-01-07] MEDS ORDERED: Warfarin 2.5 MG Tab PO SCH (21:00)
== END 2025-01-07 13:45 | disposition home or self-care (01) | DRG 871 ==
LOC: VM.MS 13:32
PROVIDERS: ADMIT Internal Medicine; ATTEND Internal Medicine
DX: A41.9 Sepsis, unspecified organism (principal); I21.A1 Myocardial infarction type 2; I50.43 Acute on chronic combined systolic (congestive) and diastolic (congestive) heart failure; J18.9 Pneumonia, unspecified organism; I48.20 Chronic atrial fibrillation, unspecified; E44.0 Moderate protein-calorie malnutrition; E87.1 Hypo-osmolality and hyponatremia; N17.9 Acute kidney failure, unspecified; E87.20 Acidosis, unspecified; B17.9 Acute viral hepatitis, unspecified; Z68.1 Body mass index [BMI] 19.9 or less, adult; I25.10 Atherosclerotic heart disease of native coronary artery without angina pectoris; E78.1 Pure hyperglyceridemia; F03.B0 Unspecified dementia, moderate, without behavioral disturbance, psychotic disturbance, mood disturbance, and anxiety; R29.6 Repeated falls; M81.0 Age-related osteoporosis without current pathological fracture; N18.2 Chronic kidney disease, stage 2 (mild); D63.1 Anemia in chronic kidney disease; D69.6 Thrombocytopenia, unspecified; Z66 Do not resuscitate; Z95.2 Presence of prosthetic heart valve; I25.2 Old myocardial infarction; Z98.890 Other specified postprocedural states; Z95.5 Presence of coronary angioplasty implant and graft
CPT/HCPCS: 36415; 71045; 71046; 72100; 72170; 80053; 80202; 81001; 82947; 83605; 83735; 83880; 84145; 84443; 84484; 85025; 85610; 85652; 86140; 87040; 87428-QW; 92610-GN; 93005; 94640; 97110-GP; 97116-GP; 97161-GP; 97165-GO; 97535-GO; A9270-GY; J0456; J0696; J1650; J1720; J1920; J1940; J2543; J3370; J3475; J7030; J7050; J7620-GY

== ENCOUNTER 2025-02-24 20:58 | Inpatient (IN) | payer MEDICARE, OTHER ==
[2025-02-24] MEDS ORDERED: Sodium Chloride 0.9% 10 ML Syringe FLUSH PRN (21:00)
[2025-02-24 21:36] LABS: BASOPHILS PERCENT AUTO 0.6 % (0.2-1.2); EOSINOPHILS ABSOLUTE AUTO 0.1 x10^3/uL (0.0-0.5); EOSINOPHILS PERCENT AUTO 2.7 % (0.0-4.0); HEMATOCRIT 31.4 % (33.0-47.0); HEMOGLOBIN 9.9 g/dL (12.0-16.0); IMMATURE GRAN ABSOLUTE AUTO 0.01 x10^3/uL (0.00-0.07); LYMPHOCYTES ABSOLUTE AUTO 0.7 x10^3/uL (1.0-4.8); LYMPHOCYTES PERCENT AUTO 20.4 % (25.0-50.0); MEAN CORPUSCULAR HEMOGLOBIN 30.6 pg (26.0-32.0); MEAN CORPUSCULAR HGB CONC 31.5 g/dL (32.0-36.0); MEAN CORPUSCULAR VOLUME 96.9 fL (78.0-93.0); MONOCYTES ABSOLUTE AUTO 0.4 x10^3/uL (0.0-0.8); MONOCYTES PERCENT AUTO 10.9 % (2.0-11.0); NEUTROPHILS ABSOLUTE AUTO 2.2 x10^3/uL (1.8-7.7); NEUTROPHILS PERCENT AUTO 65.1 % (50.0-80.0); PLATELET COUNT,PLT 96 x10^3/uL (130-400); RED BLOOD CELL COUNT 3.24 x10^6/uL (4.00-5.50); WHITE BLOOD CELL COUNT,WBC 3.4 x10^3/uL (4.0-10.0)
[2025-02-24 21:58] LABS: INR 4.4 (0.9-1.1); PROTHROMBIN TIME 44.7 SEC (9.6-12.0)
[2025-02-24 22:02] LABS: A/G RATIO 0.83; ANION GAP 10.5 mmol/L (5-15); BILIRUBIN TOTAL 1.1 mg/dL (0.2-1.0); CALCIUM 8.4 mg/dL (8.5-10.1); CREATININE 2.4 mg/dL (0.55-1.02); EST CRCL DRUG DOSING (CG) 15.98 mL/min; MAGNESIUM 2.3 mg/dL (1.8-2.4); POTASSIUM,K 4.5 mmol/L (3.5-5.1); PROTEIN TOTAL,TP 6.6 g/dL (6.4-8.2)
[2025-02-24] MEDS ORDERED: Ondansetron 4 MG/2 ML SDV IV PRN (23:42)
[2025-02-25] MEDS: Furosemide 40 MG/4 ML VIAL IVPUSH ONE (00:33)
[2025-02-25] MEDS: Acetaminophen 325 MG Tab PO PRN (00:41)
[2025-02-25] MEDS: Furosemide 40 MG/4 ML VIAL IV ONE (01:10)
[2025-02-25] MEDS ORDERED: Lidocaine 4% Patch TOP PRN ×2 (03:38→09:35)
[2025-02-25] MEDS ORDERED: Benzonatate 100 MG Cap PO PRN (03:38)
[2025-02-25] MEDS ORDERED: guaiFENesin 100 MG/5 ML Soln 10 ML UD Cup PO PRN (03:38)
[2025-02-25] MEDS: diphenhydrAMINE 25 MG Cap PO ONE (03:46)
[2025-02-25 06:55] LABS: BASOPHILS PERCENT AUTO 1.1 % (0.2-1.2); EOSINOPHILS ABSOLUTE AUTO 0.1 x10^3/uL (0.0-0.5); HEMATOCRIT 32.6 % (33.0-47.0); HEMOGLOBIN 10.3 g/dL (12.0-16.0); LYMPHOCYTES ABSOLUTE AUTO 0.9 x10^3/uL (1.0-4.8); LYMPHOCYTES PERCENT AUTO 32.7 % (25.0-50.0); MEAN CORPUSCULAR HEMOGLOBIN 30.6 pg (26.0-32.0); MEAN CORPUSCULAR HGB CONC 31.6 g/dL (32.0-36.0); MEAN CORPUSCULAR VOLUME 96.7 fL (78.0-93.0); MONOCYTES ABSOLUTE AUTO 0.3 x10^3/uL (0.0-0.8); MONOCYTES PERCENT AUTO 11.3 % (2.0-11.0); NEUTROPHILS ABSOLUTE AUTO 1.4 x10^3/uL (1.8-7.7); NEUTROPHILS PERCENT AUTO 51.9 % (50.0-80.0); PLATELET COUNT,PLT 98 x10^3/uL (130-400); RED BLOOD CELL COUNT 3.37 x10^6/uL (4.00-5.50); WHITE BLOOD CELL COUNT,WBC 2.7 x10^3/uL (4.0-10.0)
[2025-02-25 07:11] LABS: INR 4.3 (0.9-1.1); PROTHROMBIN TIME 43.5 SEC (9.6-12.0)
[2025-02-25 07:28] LABS: A/G RATIO 0.86; BILIRUBIN TOTAL 1.2 mg/dL (0.2-1.0); CALCIUM 8.4 mg/dL (8.5-10.1); CREATININE 2.3 mg/dL (0.55-1.02); EST CRCL DRUG DOSING (CG) 16.6 mL/min; POTASSIUM,K 4.1 mmol/L (3.5-5.1); PROTEIN TOTAL,TP 6.5 g/dL (6.4-8.2)
[2025-02-25 07:29] LABS: ANION GAP 11.1 mmol/L (5-15)
[2025-02-25 08:14] LABS: APPEARANCE,URINE CLEAR (CLEAR); BILIRUBIN,URINE NEGATIVE (NEGATIVE); COLOR,URINE YELLOW (YELLOW); GLUCOSE,URINE NEGATIVE (NEGATIVE); KETONES,URINE NEGATIVE (NEGATIVE); LEUKOCYTE ESTERASE,URINE NEGATIVE (NEGATIVE); NITRITE,URINE NEGATIVE (NEGATIVE); OCCULT BLOOD,URINE TRACE-INTACT (NEGATIVE); PROTEIN,URINE NEGATIVE (NEGATIVE); UROBILINOGEN,URINE 0.2 EU/dL (0.2)
[2025-02-25 08:30] LABS: BACTERIA,URINE NOT SEEN /HPF (NOT SEEN); MUCUS,URINE NOT SEEN /LPF (NOT SEEN); RBC,URINE 0-5 /HPF (NOT SEEN); SQUAMOUS EPITHELIAL CELLS,UR RARE /HPF (NOT SEEN); WBC,URINE 0-5 /HPF (NOT SEEN)
[2025-02-25] MEDS: Metoprolol Succinate 50 MG Tab.ER PO SCH (08:57)
[2025-02-25] MEDS: Amiodarone 200 MG Tab PO SCH (08:59)
[2025-02-25] MEDS: Calcium Carbonate 750 MG Tab.Chew PO SCH (09:00)
[2025-02-25] MEDS: Magnesium Chloride 64 MG Tab.ER PO SCH (09:00)
[2025-02-25] MEDS: Furosemide 40 MG/4 ML VIAL IV SCH (09:03)
[2025-02-25] MEDS: Menthol 10%/Methyl Salicylate 15% 85 GM Tube TOP SCH (09:03)
[2025-02-25 09:14] LABS: CHOLESTEROL HDL 68 mg/dL (40-59); CHOLESTEROL LDL CALCULATED 51 mg/dL (0-130); CHOLESTEROL TOTAL 131 mg/dL (0-199); TRIGLYCERIDES 62 mg/dL (0-149)
[2025-02-25] MEDS: Loratadine 10 MG Tab PO SCH (10:15)
[2025-02-25] MEDS: diphenhydrAMINE 25 MG Cap PO PRN (10:15)
[2025-02-25] MEDS: Triamcinolone Acetonide 0.1% Crm 454 GM Jar TOP SCH (10:50)
[2025-02-25] MEDS: Levothyroxine 50 MCG Tab PO SCH (10:56)
[2025-02-25] MEDS: Polyethylene Glycol 3350 Powder 17 GM Packet PO SCH (11:55)
[2025-02-25] MEDS: Primidone 50 MG Tab PO SCH ×2 (11:56→21:29)
[2025-02-25] MEDS: QUEtiapine 25 MG Tab PO SCH (21:27)
[2025-02-25] MEDS: Melatonin 3 MG Tab PO SCH (21:30)
[2025-02-25] MEDS: Mirtazapine 15 MG Tab PO SCH (21:31)
[2025-02-25] MEDS: Memantine 10 MG Tab PO SCH (21:32)
[2025-02-25 23:07] LABS: URINE PROTEIN 17 mg/dL (1-14)
[2025-02-26 07:33] LABS: BASOPHILS PERCENT AUTO 0.6 % (0.2-1.2); EOSINOPHILS ABSOLUTE AUTO 0.1 x10^3/uL (0.0-0.5); EOSINOPHILS PERCENT AUTO 2.9 % (0.0-4.0); HEMATOCRIT 31.8 % (33.0-47.0); HEMOGLOBIN 10.2 g/dL (12.0-16.0); IMMATURE GRAN ABSOLUTE AUTO 0.01 x10^3/uL (0.00-0.07); LYMPHOCYTES ABSOLUTE AUTO 0.8 x10^3/uL (1.0-4.8); LYMPHOCYTES PERCENT AUTO 23.8 % (25.0-50.0); MEAN CORPUSCULAR HEMOGLOBIN 30.6 pg (26.0-32.0); MEAN CORPUSCULAR HGB CONC 32.1 g/dL (32.0-36.0); MEAN CORPUSCULAR VOLUME 95.5 fL (78.0-93.0); MONOCYTES ABSOLUTE AUTO 0.4 x10^3/uL (0.0-0.8); MONOCYTES PERCENT AUTO 10.6 % (2.0-11.0); NEUTROPHILS ABSOLUTE AUTO 2.1 x10^3/uL (1.8-7.7); NEUTROPHILS PERCENT AUTO 61.8 % (50.0-80.0); PLATELET COUNT,PLT 93 x10^3/uL (130-400); RED BLOOD CELL COUNT 3.33 x10^6/uL (4.00-5.50); WHITE BLOOD CELL COUNT,WBC 3.4 x10^3/uL (4.0-10.0)
[2025-02-26 07:41] LABS: INR 4.4 (0.9-1.1); PROTHROMBIN TIME 43.9 SEC (9.6-12.0)
[2025-02-26 07:51] LABS: A/G RATIO 0.89; ALBUMIN 3.1 g/dL (3.4-5.0); BILIRUBIN TOTAL 1.1 mg/dL (0.2-1.0); CALCIUM 8.6 mg/dL (8.5-10.1); CREATININE 2.2 mg/dL (0.55-1.02); EST CRCL DRUG DOSING (CG) 16.85 mL/min; POTASSIUM,K 4.5 mmol/L (3.5-5.1); PROTEIN TOTAL,TP 6.6 g/dL (6.4-8.2)
[2025-02-26 08:03] LABS: ANION GAP 11.5 mmol/L (5-15)
[2025-02-26] MEDS: Lactobacillus Rhamnosus GG (Probiotic) Cap PO SCH (08:33)
[2025-02-26] MEDS: Cyanocobalamin (Vitamin B12) 1,000 MCG Tab PO SCH (08:33)
[2025-02-27 07:28] LABS: HEMATOCRIT 30.1 % (33.0-47.0); HEMOGLOBIN 9.7 g/dL (12.0-16.0); MEAN CORPUSCULAR HEMOGLOBIN 30.7 pg (26.0-32.0); MEAN CORPUSCULAR HGB CONC 32.2 g/dL (32.0-36.0); MEAN CORPUSCULAR VOLUME 95.3 fL (78.0-93.0); PLATELET COUNT,PLT 88 x10^3/uL (130-400); RED BLOOD CELL COUNT 3.16 x10^6/uL (4.00-5.50); WHITE BLOOD CELL COUNT,WBC 3.1 x10^3/uL (4.0-10.0)
[2025-02-27 07:50] LABS: INR 2.4 (0.9-1.1); PROTHROMBIN TIME 24.8 SEC (9.6-12.0)
[2025-02-27 07:52] LABS: ANISOCYTOSIS 1+ SLIGHT; BAND PERCENT MAN 2 % (0-6); EOSINOPHILS ABSOLUTE MAN 0.1 x10^3/uL (0.0-0.5); EOSINOPHILS PERCENT MAN 3 % (0-4); LYMPHOCYTES ABSOLUTE MAN 0.5 x10^3/uL (1.0-4.8); LYMPHOCYTES PERCENT MAN 17 % (25-50); MONOCYTES ABSOLUTE MAN 0.3 x10^3/uL (0.0-0.8); MONOCYTES PERCENT MAN 10 % (2-11); NEUTROPHILS ABSOLUTE MAN 2.2 x10^3/uL (1.8-7.7); SEG NEUTROPHILS PERCENT MAN 68 % (50-80)
[2025-02-27 07:53] LABS: HYPERSEGMENTED NEUTROPHILS OCCASIONAL; OVALOCYTES FEW; PLATELET COUNT ESTIMATE DECREASED
[2025-02-27 07:57] LABS: A/G RATIO 0.82; ALBUMIN 2.8 g/dL (3.4-5.0); BILIRUBIN TOTAL 1.1 mg/dL (0.2-1.0); CALCIUM 8.5 mg/dL (8.5-10.1); EST CRCL DRUG DOSING (CG) 18.2 mL/min; PROTEIN TOTAL,TP 6.2 g/dL (6.4-8.2)
[2025-02-27] MEDS: Albuterol 0.083% 2.5 MG/3 ML Neb Soln NEB PRN (10:45)
[2025-02-27 14:06] VITALS: BP 108/73; PULSE 107
[2025-02-27] MEDS: Sennosides/Docusate Sodium 50-8.6 MG Tab PO PRN (14:19)
[2025-02-27] MEDS ORDERED: Warfarin 2 MG Tab PO SCH (21:00)
[2025-02-28] MEDS ORDERED: Torsemide 20 MG Tab PO SCH (09:00)
== END 2025-02-27 14:25 | disposition swing bed (61) | DRG 292 ==
LOC: VM.ED 20:58 → VM.MS 22:38
PROVIDERS: ADMIT Internal Medicine; ATTEND Family Medicine
PROC: 0T9B70Z Drainage of Bladder with Drainage Device, Via Natural or Artificial Opening (ICD-10-PCS; principal; 2025-02-25)
DX: I50.9 Heart failure, unspecified (principal); I50.23 Acute on chronic systolic (congestive) heart failure; D61.818 Other pancytopenia; F02.83 Dementia in other diseases classified elsewhere, unspecified severity, with mood disturbance; I48.91 Unspecified atrial fibrillation; N18.4 Chronic kidney disease, stage 4 (severe); N17.9 Acute kidney failure, unspecified; Z91.048 Other nonmedicinal substance allergy status; I42.0 Dilated cardiomyopathy; Z79.890 Hormone replacement therapy; I48.20 Chronic atrial fibrillation, unspecified; Z66 Do not resuscitate; E78.1 Pure hyperglyceridemia; I25.10 Atherosclerotic heart disease of native coronary artery without angina pectoris; K76.1 Chronic passive congestion of liver; I27.20 Pulmonary hypertension, unspecified; M81.0 Age-related osteoporosis without current pathological fracture; G30.9 Alzheimer's disease, unspecified; E03.9 Hypothyroidism, unspecified; R74.01 Elevation of levels of liver transaminase levels; L29.9 Pruritus, unspecified; I25.2 Old myocardial infarction; Z79.01 Long term (current) use of anticoagulants; Z95.2 Presence of prosthetic heart valve; Z79.899 Other long term (current) drug therapy; Z86.16 Personal history of COVID-19; Z98.49 Cataract extraction status, unspecified eye
CPT/HCPCS: 36415; 51702; 71045; 76770; 80053; 80061; 81001; 82043; 82248; 82570; 83735; 83880; 84156; 84443; 84484; 85025; 85610; 85730; 93005; 93010; 94640; 97110-GP; 97116-GP; 97161-GP; 97165-GO; 97535-GO; 99223; 99223-GT; 99284; 99285; A9270-GY; J1938; Q3014

== ENCOUNTER 2025-02-27 10:06 | Inpatient (IN) | payer MEDICARE, OTHER ==
[2025-02-27] MEDS ORDERED: Benzonatate 100 MG Cap PO PRN (13:35)
[2025-02-27] MEDS ORDERED: Sodium Chloride 0.9% 10 ML Syringe FLUSH PRN ×2 (13:35)
[2025-02-27] MEDS ORDERED: Ondansetron 4 MG/2 ML SDV IV PRN (13:35)
[2025-02-27] MEDS ORDERED: guaiFENesin 100 MG/5 ML Soln 10 ML UD Cup PO PRN (13:35)
[2025-02-27] MEDS: Albuterol 0.083% 2.5 MG/3 ML Neb Soln NEB PRN (16:15)
[2025-02-27] MEDS: Acetaminophen 325 MG Tab PO PRN (20:06)
[2025-02-27] MEDS: Melatonin 3 MG Tab PO SCH (20:06)
[2025-02-27] MEDS: diphenhydrAMINE 25 MG Cap PO PRN (20:07)
[2025-02-27] MEDS: QUEtiapine 25 MG Tab PO SCH (20:07)
[2025-02-27] MEDS: Magnesium Chloride 64 MG Tab.ER PO SCH (20:10)
[2025-02-27] MEDS: Mirtazapine 15 MG Tab PO SCH (20:10)
[2025-02-27] MEDS: Primidone 50 MG Tab PO SCH (20:10)
[2025-02-27] MEDS: Memantine 10 MG Tab PO SCH (20:10)
[2025-02-27] MEDS: Metoprolol Succinate 50 MG Tab.ER PO SCH (20:11)
[2025-02-27] MEDS: Warfarin 2 MG Tab PO SCH (20:11)
[2025-02-27] MEDS: Triamcinolone Acetonide 0.1% Crm 454 GM Jar TOP SCH (20:19)
[2025-02-27] MEDS: Calcium Carbonate 750 MG Tab.Chew PO SCH (20:21)
[2025-02-28] MEDS: Levothyroxine 50 MCG Tab PO SCH (06:32)
[2025-02-28 08:09] LABS: INR 1.8 (0.9-1.1); PROTHROMBIN TIME 18.7 SEC (9.6-12.0)
[2025-02-28] MEDS: Lactobacillus Rhamnosus GG (Probiotic) Cap PO SCH (08:19)
[2025-02-28] MEDS: Loratadine 10 MG Tab PO SCH (08:20)
[2025-02-28] MEDS: Cyanocobalamin (Vitamin B12) 1,000 MCG Tab PO SCH (08:20)
[2025-02-28] MEDS: Polyethylene Glycol 3350 Powder 17 GM Packet PO SCH (08:22)
[2025-02-28] MEDS: Amiodarone 200 MG Tab PO SCH (08:25)
[2025-02-28] MEDS: Torsemide 20 MG Tab PO SCH (08:26)
[2025-02-28] MEDS: Menthol 10%/Methyl Salicylate 15% 85 GM Tube TOP SCH (08:32)
[2025-02-28] MEDS: TRIAMCINOLONE ACETONIDE 0.1% TOP SCH (09:55)
[2025-02-28] MEDS: Primidone 50 MG Tab PO SCH (12:41)
[2025-02-28] MEDS: Ondansetron 4 MG Tab.DIS PO PRN (14:22)
[2025-03-01] MEDS: Lidocaine 4% Patch TOP PRN (03:00)
[2025-03-01 08:02] LABS: INR 1.8 (0.9-1.1); PROTHROMBIN TIME 19.3 SEC (9.6-12.0)
[2025-03-01] MEDS: Enoxaparin 40 MG/0.4 ML Syringe SUBCUT SCH (12:03)
[2025-03-01] MEDS: Sennosides/Docusate Sodium 50-8.6 MG Tab PO PRN (13:07)
[2025-03-01] MEDS: Tamsulosin 0.4 MG Cap.ER PO SCH (14:11)
[2025-03-02 07:13] LABS: HEMATOCRIT 31.5 % (33.0-47.0); HEMOGLOBIN 10.2 g/dL (12.0-16.0); MEAN CORPUSCULAR HEMOGLOBIN 30.8 pg (26.0-32.0); MEAN CORPUSCULAR HGB CONC 32.4 g/dL (32.0-36.0); MEAN CORPUSCULAR VOLUME 95.2 fL (78.0-93.0); RED BLOOD CELL COUNT 3.31 x10^6/uL (4.00-5.50); WHITE BLOOD CELL COUNT,WBC 3.1 x10^3/uL (4.0-10.0)
[2025-03-02 07:36] LABS: INR 2.2 (0.9-1.1); PROTHROMBIN TIME 22.4 SEC (9.6-12.0)
[2025-03-02 07:43] LABS: A/G RATIO 0.91; ALBUMIN 3.1 g/dL (3.4-5.0); CALCIUM 8.5 mg/dL (8.5-10.1); CREATININE 1.9 mg/dL (0.55-1.02); EST CRCL DRUG DOSING (CG) 20.19 mL/min; POTASSIUM,K 4.5 mmol/L (3.5-5.1); PROTEIN TOTAL,TP 6.5 g/dL (6.4-8.2)
[2025-03-02 07:45] LABS: ANION GAP 6.5 mmol/L (5-15)
[2025-03-02] MEDS: Torsemide 20 MG Tab PO SCH (09:47)
[2025-03-03 06:51] LABS: CALCIUM 8.3 mg/dL (8.5-10.1); EST CRCL DRUG DOSING (CG) 19.18 mL/min; POTASSIUM,K 4.9 mmol/L (3.5-5.1)
[2025-03-03 06:52] LABS: ANION GAP 10.9 mmol/L (5-15); INR 2.9 (0.9-1.1); PROTHROMBIN TIME 29.6 SEC (9.6-12.0)
[2025-03-04 07:40] LABS: INR 2.8 (0.9-1.1); PROTHROMBIN TIME 28.4 SEC (9.6-12.0)
[2025-03-04] MEDS: Metolazone 2.5 MG Tab PO ONE (10:05)
[2025-03-04] MEDS: hydrOXYzine HCl 10 MG Tab PO PRN (23:59)
[2025-03-05 07:13] LABS: EOSINOPHILS ABSOLUTE AUTO 0.1 x10^3/uL (0.0-0.5); HEMATOCRIT 28.4 % (33.0-47.0); HEMOGLOBIN 9.1 g/dL (12.0-16.0); IMMATURE GRAN ABSOLUTE AUTO 0.01 x10^3/uL (0.00-0.07); LYMPHOCYTES ABSOLUTE AUTO 0.4 x10^3/uL (1.0-4.8); LYMPHOCYTES PERCENT AUTO 13.1 % (25.0-50.0); MEAN CORPUSCULAR HEMOGLOBIN 30.2 pg (26.0-32.0); MEAN CORPUSCULAR VOLUME 94.4 fL (78.0-93.0); MONOCYTES ABSOLUTE AUTO 0.4 x10^3/uL (0.0-0.8); MONOCYTES PERCENT AUTO 12.8 % (2.0-11.0); NEUTROPHILS ABSOLUTE AUTO 2.1 x10^3/uL (1.8-7.7); NEUTROPHILS PERCENT AUTO 69.8 % (50.0-80.0); RED BLOOD CELL COUNT 3.01 x10^6/uL (4.00-5.50)
[2025-03-05 07:25] LABS: INR 2.6 (0.9-1.1); PROTHROMBIN TIME 26.7 SEC (9.6-12.0)
[2025-03-05 07:45] LABS: A/G RATIO 0.88; BILIRUBIN TOTAL 1.1 mg/dL (0.2-1.0); CALCIUM 8.5 mg/dL (8.5-10.1); CREATININE 1.9 mg/dL (0.55-1.02); EST CRCL DRUG DOSING (CG) 20.19 mL/min; PROTEIN TOTAL,TP 6.4 g/dL (6.4-8.2)
[2025-03-05 07:53] LABS: ANION GAP 10.3 mmol/L (5-15); POTASSIUM,K 3.3 mmol/L (3.5-5.1)
[2025-03-05 08:00] LABS: PLATELET COUNT,PLT 83 x10^3/uL (130-400)
[2025-03-05] MEDS: Spironolactone 25 MG Tab PO SCH (09:30)
[2025-03-08 07:35] LABS: CALCIUM 8.3 mg/dL (8.5-10.1); CREATININE 1.6 mg/dL (0.55-1.02); EST CRCL DRUG DOSING (CG) 22.57 mL/min; POTASSIUM,K 3.2 mmol/L (3.5-5.1)
[2025-03-08 07:39] LABS: ANION GAP 7.2 mmol/L (5-15)
[2025-03-08] MEDS: Potassium Chloride 10 MEQ Tab.ER PO SCH (10:52)
[2025-03-09 07:06] LABS: BASOPHILS PERCENT AUTO 0.6 % (0.2-1.2); EOSINOPHILS ABSOLUTE AUTO 0.1 x10^3/uL (0.0-0.5); EOSINOPHILS PERCENT AUTO 1.9 % (0.0-4.0); HEMATOCRIT 29.5 % (33.0-47.0); HEMOGLOBIN 9.2 g/dL (12.0-16.0); IMMATURE GRAN ABSOLUTE AUTO 0.01 x10^3/uL (0.00-0.07); LYMPHOCYTES ABSOLUTE AUTO 0.5 x10^3/uL (1.0-4.8); LYMPHOCYTES PERCENT AUTO 14.9 % (25.0-50.0); MEAN CORPUSCULAR HEMOGLOBIN 29.7 pg (26.0-32.0); MEAN CORPUSCULAR HGB CONC 31.2 g/dL (32.0-36.0); MEAN CORPUSCULAR VOLUME 95.2 fL (78.0-93.0); MONOCYTES ABSOLUTE AUTO 0.5 x10^3/uL (0.0-0.8); MONOCYTES PERCENT AUTO 15.2 % (2.0-11.0); NEUTROPHILS ABSOLUTE AUTO 2.2 x10^3/uL (1.8-7.7); NEUTROPHILS PERCENT AUTO 67.1 % (50.0-80.0); PLATELET COUNT,PLT 86 x10^3/uL (130-400)
[2025-03-09 07:30] LABS: INR 2.3 (0.9-1.1); PROTHROMBIN TIME 24.2 SEC (9.6-12.0)
[2025-03-09 07:37] LABS: WHITE BLOOD CELL COUNT,WBC 3.2 x10^3/uL (4.0-10.0)
[2025-03-09 08:02] LABS: A/G RATIO 0.86; ANION GAP 8.9 mmol/L (5-15); BILIRUBIN TOTAL 1.1 mg/dL (0.2-1.0); CALCIUM 8.6 mg/dL (8.5-10.1); CREATININE 1.9 mg/dL (0.55-1.02); EST CRCL DRUG DOSING (CG) 20.03 mL/min; POTASSIUM,K 4.9 mmol/L (3.5-5.1); PROTEIN TOTAL,TP 6.5 g/dL (6.4-8.2)
[2025-03-09] MEDS: Bisacodyl 10 MG Supp RECTAL ONE (09:21)
[2025-03-09] MEDS: Sennosides/Docusate Sodium 50-8.6 MG Tab PO SCH (09:21)
[2025-03-09] MEDS: Torsemide 20 MG Tab PO SCH (09:23)
[2025-03-10 07:00] LABS: INR 2.5 (0.9-1.1); PROTHROMBIN TIME 25.7 SEC (9.6-12.0)
[2025-03-10 07:06] LABS: A/G RATIO 0.88; BILIRUBIN TOTAL 1.2 mg/dL (0.2-1.0); CALCIUM 8.6 mg/dL (8.5-10.1); CREATININE 1.9 mg/dL (0.55-1.02); EST CRCL DRUG DOSING (CG) 19.5 mL/min; POTASSIUM,K 4.9 mmol/L (3.5-5.1); PROTEIN TOTAL,TP 6.4 g/dL (6.4-8.2)
[2025-03-10 07:07] LABS: ANION GAP 9.9 mmol/L (5-15)
[2025-03-10 10:06] VITALS: BP 115/58; PULSE 72
== END 2025-03-10 10:45 | DRG 281 ==
LOC: VM.MS 13:35
PROVIDERS: ADMIT Family Medicine; ATTEND Internal Medicine
DX: I50.23 Acute on chronic systolic (congestive) heart failure (principal); D61.818 Other pancytopenia; I21.4 Non-ST elevation (NSTEMI) myocardial infarction; E87.1 Hypo-osmolality and hyponatremia; N17.9 Acute kidney failure, unspecified; R53.1 Weakness; Z66 Do not resuscitate; I50.9 Heart failure, unspecified; I48.91 Unspecified atrial fibrillation; N18.9 Chronic kidney disease, unspecified; G47.00 Insomnia, unspecified; E87.6 Hypokalemia; F03.90 Unspecified dementia, unspecified severity, without behavioral disturbance, psychotic disturbance, mood disturbance, and anxiety; E03.9 Hypothyroidism, unspecified; M81.0 Age-related osteoporosis without current pathological fracture; F43.20 Adjustment disorder, unspecified; W19.XXXA Unspecified fall, initial encounter; Z79.899 Other long term (current) drug therapy; Z79.01 Long term (current) use of anticoagulants
CPT/HCPCS: 36415; 71046; 80048; 80053; 83735; 83880; 85025; 85027; 85610; 94640; 97110-GP; 97116-GP; 97129-GO; 97165-GO; 97535-GO; A9270-GY; J1650

== ENCOUNTER 2025-03-18 15:42 | Inpatient (IN) | payer MEDICARE, OTHER ==
[2025-03-18] MEDS ORDERED: Sodium Chloride 0.9% 10 ML Syringe FLUSH PRN (15:52)
[2025-03-18 16:51] LABS: BASOPHILS PERCENT AUTO 0.6 % (0.2-1.2); EOSINOPHILS ABSOLUTE AUTO 0.1 x10^3/uL (0.0-0.5); EOSINOPHILS PERCENT AUTO 1.8 % (0.0-4.0); HEMATOCRIT 31.7 % (33.0-47.0); HEMOGLOBIN 9.8 g/dL (12.0-16.0); IMMATURE GRAN ABSOLUTE AUTO 0.01 x10^3/uL (0.00-0.07); LYMPHOCYTES ABSOLUTE AUTO 0.6 x10^3/uL (1.0-4.8); LYMPHOCYTES PERCENT AUTO 12.2 % (25.0-50.0); MEAN CORPUSCULAR HEMOGLOBIN 29.2 pg (26.0-32.0); MEAN CORPUSCULAR HGB CONC 30.9 g/dL (32.0-36.0); MEAN CORPUSCULAR VOLUME 94.3 fL (78.0-93.0); MONOCYTES ABSOLUTE AUTO 0.4 x10^3/uL (0.0-0.8); MONOCYTES PERCENT AUTO 8.5 % (2.0-11.0); NEUTROPHILS ABSOLUTE AUTO 3.8 x10^3/uL (1.8-7.7); NEUTROPHILS PERCENT AUTO 76.7 % (50.0-80.0); PLATELET COUNT,PLT 127 x10^3/uL (130-400); RED BLOOD CELL COUNT 3.36 x10^6/uL (4.00-5.50); WHITE BLOOD CELL COUNT,WBC 4.9 x10^3/uL (4.0-10.0)
[2025-03-18 17:04] LABS: A/G RATIO 0.84; ALANINE AMINOTRANSFERASE,ALT 31 U/L (14-59); ALBUMIN 3.1 g/dL (3.4-5.0); ALKALINE PHOSPHATASE 141 U/L (46-116); ASPARTATE AMNIOTRANSFERASE,AST 34 U/L (15-37); BILIRUBIN TOTAL 1.2 mg/dL (0.2-1.0); BLOOD UREA NITROGEN,BUN 44 mg/dL (7-18); C-REACTIVE PROTEIN 2.54 mg/dL (<=0.50); CALCIUM 8.7 mg/dL (8.5-10.1); CARBON DIOXIDE,CO2 32 mmol/L (21-32); CHLORIDE,CL 101 mmol/L (98-107); CREATININE 1.9 mg/dL (0.55-1.02); GLUCOSE RANDOM 88 mg/dL (70-99); POTASSIUM,K 4.6 mmol/L (3.5-5.1); PROTEIN TOTAL,TP 6.8 g/dL (6.4-8.2); SODIUM,NA 139 mmol/L (136-145)
[2025-03-18 17:06] LABS: ANION GAP 10.6 mmol/L (5-15); ESTIMATED GFR 26 mL/min (>=60)
[2025-03-18] MEDS: Ondansetron 4 MG/2 ML SDV IVPUSH ONE (17:19)
[2025-03-18] MEDS: fentaNYL 50 MCG/ML SDV IVPUSH ONE (17:21)
[2025-03-18] MEDS: cefTRIAXone 2 GM Vial IVPUSH ONE (18:25)
[2025-03-18] MEDS: Azithromycin 500 MG in Sodium Chloride 0.9% 250 ML IV ONE (18:32)
[2025-03-18] MEDS ORDERED: Benzonatate 100 MG Cap PO PRN (20:54)
[2025-03-18] MEDS ORDERED: Sennosides/Docusate Sodium 50-8.6 MG Tab PO PRN (20:54)
[2025-03-18] MEDS ORDERED: Albuterol 0.083% 2.5 MG/3 ML Neb Soln INH PRN (20:54)
[2025-03-18] MEDS ORDERED: Ondansetron 4 MG/2 ML SDV IV PRN (21:17)
[2025-03-18] MEDS: QUEtiapine 25 MG Tab PO SCH (22:24)
[2025-03-18] MEDS: Primidone 50 MG Tab PO SCH (22:24)
[2025-03-18] MEDS: Melatonin 3 MG Tab PO SCH (22:31)
[2025-03-18] MEDS: Mirtazapine 15 MG Tab PO SCH (22:32)
[2025-03-18 23:01] LABS: INR 2.4 (0.9-1.1); PROTHROMBIN TIME 25.2 SEC (9.6-12.0)
[2025-03-19] MEDS: Levothyroxine 50 MCG Tab PO SCH (06:26)
[2025-03-19 06:44] LABS: BASOPHILS PERCENT AUTO 0.5 % (0.2-1.2); HEMATOCRIT 29.9 % (33.0-47.0); HEMOGLOBIN 9.3 g/dL (12.0-16.0); LYMPHOCYTES ABSOLUTE AUTO 0.8 x10^3/uL (1.0-4.8); LYMPHOCYTES PERCENT AUTO 20.2 % (25.0-50.0); MEAN CORPUSCULAR HEMOGLOBIN 29.2 pg (26.0-32.0); MEAN CORPUSCULAR HGB CONC 31.1 g/dL (32.0-36.0); MEAN CORPUSCULAR VOLUME 93.7 fL (78.0-93.0); MONOCYTES ABSOLUTE AUTO 0.4 x10^3/uL (0.0-0.8); MONOCYTES PERCENT AUTO 10.7 % (2.0-11.0); NEUTROPHILS ABSOLUTE AUTO 2.6 x10^3/uL (1.8-7.7); NEUTROPHILS PERCENT AUTO 67.6 % (50.0-80.0); PLATELET COUNT,PLT 99 x10^3/uL (130-400); RED BLOOD CELL COUNT 3.19 x10^6/uL (4.00-5.50); WHITE BLOOD CELL COUNT,WBC 3.8 x10^3/uL (4.0-10.0)
[2025-03-19 07:03] LABS: A/G RATIO 0.83; ALANINE AMINOTRANSFERASE,ALT 37 U/L (14-59); ALBUMIN 2.9 g/dL (3.4-5.0); ALKALINE PHOSPHATASE 134 U/L (46-116); ASPARTATE AMNIOTRANSFERASE,AST 42 U/L (15-37); BILIRUBIN TOTAL 1.1 mg/dL (0.2-1.0); BLOOD UREA NITROGEN,BUN 44 mg/dL (7-18); CALCIUM 8.6 mg/dL (8.5-10.1); CARBON DIOXIDE,CO2 31 mmol/L (21-32); CHLORIDE,CL 102 mmol/L (98-107); CREATININE 2.1 mg/dL (0.55-1.02); GLUCOSE RANDOM 85 mg/dL (70-99); POTASSIUM,K 4.6 mmol/L (3.5-5.1); PROTEIN TOTAL,TP 6.4 g/dL (6.4-8.2); SODIUM,NA 139 mmol/L (136-145)
[2025-03-19 07:04] LABS: ANION GAP 10.6 mmol/L (5-15); ESTIMATED GFR 23 mL/min (>=60)
[2025-03-19] MEDS ORDERED: Spironolactone 25 MG Tab PO SCH (09:00)
[2025-03-19] MEDS: Polyethylene Glycol 3350 Powder 17 GM Packet PO SCH (09:00)
[2025-03-19] MEDS ORDERED: Heparin Sodium 5,000 Units/ML Vial SUBCUT SCH (09:00)
[2025-03-19] MEDS ORDERED: Torsemide 20 MG Tab PO SCH (09:00)
[2025-03-19] MEDS: Magnesium Chloride 64 MG Tab.ER PO SCH (09:03)
[2025-03-19] MEDS: Memantine 10 MG Tab PO SCH (09:04)
[2025-03-19] MEDS: Lactobacillus Rhamnosus GG (Probiotic) Cap PO SCH (09:04)
[2025-03-19] MEDS: Amiodarone 200 MG Tab PO SCH (09:05)
[2025-03-19] MEDS: Cyanocobalamin (Vitamin B12) 1,000 MCG Tab PO SCH (09:05)
[2025-03-19] MEDS: Loratadine 10 MG Tab PO SCH (09:06)
[2025-03-19] MEDS: Metoprolol Succinate 50 MG Tab.ER PO SCH (09:06)
[2025-03-19] MEDS: cefTRIAXone 1 GM Vial IVPUSH SCH (09:06)
[2025-03-19] MEDS: Azithromycin 500 MG in Sodium Chloride 0.9% 250 ML IV SCH (09:09)
[2025-03-19] MEDS: Warfarin 2 MG Tab PO ONE (10:27)
[2025-03-19] MEDS: Acetaminophen 325 MG Tab PO PRN (10:28)
[2025-03-19] MEDS: hydrOXYzine HCl 10 MG Tab PO PRN (13:56)
[2025-03-19] MEDS ORDERED: Melatonin 3 MG Tab PO SCH (21:00)
[2025-03-20 06:55] LABS: BASOPHILS PERCENT AUTO 0.8 % (0.2-1.2); EOSINOPHILS ABSOLUTE AUTO 0.1 x10^3/uL (0.0-0.5); HEMATOCRIT 31.2 % (33.0-47.0); HEMOGLOBIN 9.6 g/dL (12.0-16.0); IMMATURE GRAN ABSOLUTE AUTO 0.01 x10^3/uL (0.00-0.07); LYMPHOCYTES ABSOLUTE AUTO 0.5 x10^3/uL (1.0-4.8); MEAN CORPUSCULAR HEMOGLOBIN 29.4 pg (26.0-32.0); MEAN CORPUSCULAR HGB CONC 30.8 g/dL (32.0-36.0); MEAN CORPUSCULAR VOLUME 95.7 fL (78.0-93.0); MONOCYTES ABSOLUTE AUTO 0.4 x10^3/uL (0.0-0.8); MONOCYTES PERCENT AUTO 11.3 % (2.0-11.0); NEUTROPHILS ABSOLUTE AUTO 2.6 x10^3/uL (1.8-7.7); NEUTROPHILS PERCENT AUTO 72.6 % (50.0-80.0); PLATELET COUNT,PLT 103 x10^3/uL (130-400); RED BLOOD CELL COUNT 3.26 x10^6/uL (4.00-5.50); WHITE BLOOD CELL COUNT,WBC 3.6 x10^3/uL (4.0-10.0)
[2025-03-20 07:12] LABS: A/G RATIO 0.76; ALBUMIN 2.9 g/dL (3.4-5.0); BILIRUBIN TOTAL 0.9 mg/dL (0.2-1.0); CALCIUM 8.6 mg/dL (8.5-10.1); CREATININE 2.2 mg/dL (0.55-1.02); EST CRCL DRUG DOSING (CG) 17.41 mL/min; POTASSIUM,K 4.3 mmol/L (3.5-5.1); PROTEIN TOTAL,TP 6.7 g/dL (6.4-8.2)
[2025-03-20 07:14] LABS: ANION GAP 11.3 mmol/L (5-15)
[2025-03-20 07:20] LABS: C-REACTIVE PROTEIN 3.14 mg/dL (<=0.50)
[2025-03-20 07:22] LABS: PROTHROMBIN TIME 20.8 SEC (9.6-12.0)
[2025-03-20] MEDS: Azithromycin 250 MG Tab PO SCH (09:23)
[2025-03-20] MEDS: Warfarin 2 MG Tab PO ONE (09:24)
[2025-03-20] MEDS: Spironolactone 25 MG Tab PO ONE (09:25)
[2025-03-20 09:31] VITALS: PULSE 111
[2025-03-20] MEDS: cefTRIAXone 1 GM Vial IVPUSH SCH (10:44)
[2025-03-20] MEDS: Torsemide 20 MG Tab PO SCH (10:44)
[2025-03-20] MEDS: Cefuroxime 250 MG Tab PO SCH (10:44)
[2025-03-20 11:08] VITALS: BP 128/80
== END 2025-03-20 11:00 | DRG 194 ==
LOC: VM.ED 15:42 → VM.MS 19:17
PROVIDERS: ADMIT Family Medicine; ATTEND Internal Medicine
DX: J18.9 Pneumonia, unspecified organism (principal); E44.0 Moderate protein-calorie malnutrition; Z91.048 Other nonmedicinal substance allergy status; Z79.890 Hormone replacement therapy; I42.9 Cardiomyopathy, unspecified; I50.22 Chronic systolic (congestive) heart failure; R18.8 Other ascites; I48.19 Other persistent atrial fibrillation; N18.4 Chronic kidney disease, stage 4 (severe); F03.94 Unspecified dementia, unspecified severity, with anxiety; Z66 Do not resuscitate; Z51.5 Encounter for palliative care; Z68.23 Body mass index [BMI] 23.0-23.9, adult; I25.10 Atherosclerotic heart disease of native coronary artery without angina pectoris; I50.9 Heart failure, unspecified; E78.00 Pure hypercholesterolemia, unspecified; M81.0 Age-related osteoporosis without current pathological fracture; F41.9 Anxiety disorder, unspecified; E55.9 Vitamin D deficiency, unspecified; D69.6 Thrombocytopenia, unspecified; E03.9 Hypothyroidism, unspecified; N20.0 Calculus of kidney; I27.20 Pulmonary hypertension, unspecified; G30.9 Alzheimer's disease, unspecified; D64.9 Anemia, unspecified; K59.01 Slow transit constipation; Z95.2 Presence of prosthetic heart valve; Z86.16 Personal history of COVID-19; Z79.01 Long term (current) use of anticoagulants; Z98.890 Other specified postprocedural states; Z98.49 Cataract extraction status, unspecified eye; Z79.899 Other long term (current) drug therapy
CPT/HCPCS: 36415; 71045; 74018; 74176; 80053; 83880; 85025; 85610; 86140; 87070; 94640; 96365; 96375; 99285-25; A9270-GY; J0456; J0696; J2405; J3010